=== PATIENT | male | born 1960 | race African-American/Black ===

== ENCOUNTER 2017-09-28 09:39 | Inpatient (IN) | payer OTHER ==
[2017-09-28 10:48] LABS: #Monocytes 2.1 thou/uL (0.11-0.59); #Neutrophils 14.1 thou/uL (1.40-6.50); %Basophils 0.1 % (0.0-1.0); %Eosinophils 0.1 % (0.0-10.0); %Lymphocytes 5.7 % (21.0-51.0); %Monocytes 12.1 % (0.0-10.0); Hemoglobin 10.3 g/dL (14.0-18.0); Mean Corpuscular HGB CONC 32.5 g/dL (32.0-36.0); Mean Corpuscular Volume 98.6 fl (80.0-94.0); Mean Platelet Volume 7.8 fL (7.4-10.4); Platelet Count 196 thou/uL (130-400); RBC Distribution Width 16.1 % (11.5-14.5); Red Blood Cell (RBC) Count 3.21 mill/uL (4.70-6.10); White Blood Cell (WBC) Count 17.3 thou/uL (4.8-10.8)
[2017-09-28 10:58] LABS: ALT (SGPT) 38 U/L (8-55); AST (SGOT) 58 U/L (5-34); Albumin 3.7 g/dL (3.5-5.0); Alkaline Phosphatase 67 U/L (40-150); Anion Gap 13 mmol/L (10-20); BUN (Urea Nitrogen) 19 mg/dL (8.4-25.7); Bilirubin, Total 0.6 mg/dL (0.2-1.2); Calc. Creatinine Clearance 0 mL/min (70-130); Calcium 9.2 mg/dL (7.8-10.44); Carbon Dioxide 31 mmol/L (22-29); Chloride 89 mmol/L (98-107); Estimated GFR-MDRD Greater than 90; Globulin 3.1 g/dL (2.4-3.5); Glucose 135 mg/dL (70-105); Potassium 3.3 mmol/L (3.5-5.1); Protein, Total 6.8 g/dL (6.0-8.3); Sodium 130 mmol/L (136-145)
--- NOTE | 2017-09-28 11:02 | RAD ---
RIGHT ELBOW 4 VIEWS: Date: 09/28/17 HISTORY: Right elbow pain. FINDINGS: Radiocapitellar alignment is maintained. Mild osteophytosis. No acute fracture, dislocation, or fluid distention of the joint capsule. Prominent soft tissue swelling overlies the posterior aspect of the proximal ulna. No soft tissue gas or radiopaque foreign bodies. IMPRESSION: Soft tissue swelling without other complication evident. POS: [facility]
[2017-09-28] MEDS ORDERED: Vancomycin HCl 750 MG in Sodium Chloride 0.9% 250 ML 250 ML IVPB SCH (11:15)
[2017-09-28] MEDS ORDERED: Piperacillin/Tazobactam 4.5 GM in Sodium Chloride 0.9% 100 ML IVPB SCH (11:15)
[2017-09-28] MEDS ORDERED: Clindamycin/D5W 900 mg/50 ml Premix Bag ONE (11:17)
--- NOTE | 2017-09-28 12:10 | RAD ---
RIGHT FOREARM 2 VIEWS: Date: 09/28/17 HISTORY: Right arm pain and infection. FINDINGS: No acute fracture, dislocation, or aggressive osseous erosions. There is prominent soft tissue swelling over the posterior aspect of the forearm. No soft tissue gas or radiopaque foreign bodies are apparent. IMPRESSION: Prominent posterior soft tissue swelling. POS: [facility]
[2017-09-28] MEDS ORDERED: Ondansetron HCl/PF 4 MG/2 ML Vial IVP PRN ×2 (15:18)
[2017-09-28] MEDS ORDERED: traMADol HCl 50 MG TAB PO PRN (15:18)
[2017-09-28] MEDS ORDERED: Bisacodyl 5 MG TAB PO PRN ×2 (15:18)
[2017-09-28] MEDS ORDERED: Mag-Al 1200 mg/1200 mg/30 ML UDCUP PO PRN (15:18)
[2017-09-28] MEDS ORDERED: Benzonatate 100 MG CAP PO PRN (15:18)
[2017-09-28] MEDS ORDERED: hydrALAZINE 20 MG/ML VIAL SLOW IVP PRN (15:18)
[2017-09-28] MEDS ORDERED: Senokot 8.6 MG TAB PO PRN ×2 (15:18)
[2017-09-28] MEDS ORDERED: Nitroglycerin 0.4 MG TAB (25 Tab Bottle) SL PRN (15:18)
[2017-09-28] MEDS ORDERED: Calcium Carbonate 500 MG ChewTAB PO PRN (15:18)
[2017-09-28] MEDS ORDERED: cloNIDine 0.1 MG TAB PO PRN (15:18)
[2017-09-28] MEDS ORDERED: Acetaminophen 325 MG TAB PO PRN (15:18)
[2017-09-28] MEDS ORDERED: Diabetic Tussin 200 MG/10 ML UDCUP PO PRN (15:18)
[2017-09-28 15:24] VITALS: BMI 15.0
[2017-09-28] MEDS ORDERED: Potassium Chloride 20 MEQ TAB PO SCH (15:30)
[2017-09-28] MEDS: Sodium Chloride 0.9% 1,000 ML IV SCH (15:49)
[2017-09-28] MEDS ORDERED: VANCOMYCIN IVPB PRN (15:50)
--- NOTE | 2017-09-28 16:36 | HP ---
DATE OF ADMISSION: 09/28/2017 PRIMARY CARE PHYSICIAN: Cielo Rojo M.D. CHIEF COMPLAINT: Right forearm redness, tenderness, swelling, and wound. HISTORY OF PRESENT ILLNESS: Mr. Arellano is a pleasant 57-year-old male with past medical history of end-stage COPD, currently on hospice as well as history of hypertension, bipolar illness, alcohol abu se, who presented to the emergency room with the above-mentioned complaints. History is mainly obtai carson by the patient himself and case has been discussed with the admitting ER physician, Dr. Garcia. El ectronical medical records have been reviewed in detail. According to Mr. Arellano he is homebound and lives in his apartment under the care of hospice people. About 1 week ago, he noticed that there is an open wound on his forearm on the right side near the elbow on the dorsal surface. He thinks that he might have been bitten by either a spider or some oth er bug. He also reports taking a hot bath in his tub every morning, but reports that he extensively cleans it with disinfectant and puts chlorine in his water. He noticed that his arm has steadily bee n getting worse. He does not feel much pain, but it got worse up to the point where he had worsening of the wound with discharge of pus. He noticed that the arm has been getting swollen up with worsen ing redness as well. He contacted his primary care physician and was prescribed Keflex without any benefit. His hospice c are nurse sent him to the ER today. In the emergency room, he was hemodynamically stable except for the heart rate slightly high at 107. He was found to have extensive erythema, swelling, and tenderness with soft tissue wound on the righ t forearm on the dorsal surface with blistering. He underwent x-ray of the elbow as well as forearm. Both of these were negative for any osseous deformity. Soft tissue swelling was evident on both th e x-rays. He did not have any evidence to suggest compartment syndrome. He was given clindamycin, Z osyn, and vancomycin and is now being admitted for right forearm infection. He denies any fever, chills, nausea, vomiting, abdominal pain. He denies any shortness of breath or chest pain. Denies any dysuria. Denies any malaise, but the reports poor appetite. PAST MEDICAL HISTORY: 1. End-stage chronic obstructive pulmonary disease under care of [facility]. 2. History of tobacco abuse. He quit smoking 2 years ago. 3. History of alcohol abuse. He has not drunk in the last 1 week. 4. History of hypertension. 5. Anxiety and depression. 6. Bipolar disorder. PAST SURGICAL HISTORY: No surgeries done to this patient, reviewed with him. PSYCHIATRIC HISTORY: Anxiety and bipolar depression illness. SOCIAL HISTORY: Former tobacco abuser; quit 2 years ago. Currently, drinks about 2 beers every day. He has been abstinent for the last week. He is currently living at his own apartment and has [facility] taking care of his end-stage COPD. ALLERGIES: No known medication allergies. FAMILY HISTORY: No significant family history of any coronary artery disease, stroke, or cancer. CURRENT MEDICATIONS: Not sure what medications he takes on a regular basis. These will further need to be confirmed. According to the ER, he takes Symbicort as needed, prednisone daily, and Norvasc. REVIEW OF SYSTEMS: The following complete review of systems was negative, unless otherwise mentioned in the HPI or below: Constitutional: Weight loss or gain, ability to conduct usual activities. Sk in: Rash, itching. Eyes: Double vision, pain. ENT/Mouth: Nose bleeding, neck stiffness, pain, te nderness. Cardiovascular: Palpitations, dyspnea on exertion, orthopnea. Respiratory: Shortness of breath, wheezing, cough, hemoptysis, fever, or night sweats. Gastrointestinal: Poor appetite, abdo vanita pain, heartburn, nausea, vomiting, constipation, or diarrhea. Genitourinary: Urgency, frequen cy, dysuria, nocturia. Musculoskeletal: Pain, swelling. Neurologic/Psychiatric: Anxiety, depressi on. Allergy/Immunologic: Skin rash, bleeding tendency. A 12-point review of systems was done and i s negative except for those mentioned in the history and physical. LABORATORY EXAMINATION: CBC shows WBCs at 17.3 with 82% neutrophils, hemoglobin 10.3, platelet count of 196. Serum chemistry shows sodium of 130, potassium 3.3, chloride 89, bicarbonate 31, blood suga r 136. Lactic acid normal at 1.6. X-ray of the forearm and elbow was reviewed by myself and shows s oft tissue swelling without any significant fluid collection. No soft tissue gas or foreign bodies w ere apparent for the radiologist. PHYSICAL EXAMINATION: MOST RECENT VITAL SIGNS: Temperature 97.6, pulse of 87, respirations 16, saturating 97% on 2 liters nasal cannula, blood pressure 145/82. GENERAL: No acute distress, awake, alert, oriented x3. HEENT EXAMINATION: Mucous membrane is moist and pink. No oropharyngeal exudate or erythema. Head i s normocephalic, atraumatic. Pupils equal, reactive to light and accommodation. Extraocular movemen t intact. NECK: Supple without any lymphadenopathy, JVD, or bruit. CHEST: Clear to auscultation without any wheezing, rales, or rhonchi. Rate and rhythm is regular wi thout any murmur, rubs, or gallops. ABDOMEN: Soft, nontender, nondistended with positive bowel sounds. EXTREMITIES: Evaluation show right forearm erythema, swelling, and edema that is pitting, extending from his wrist upwards just above his right elbow. It is extending mainly from dorsum. He has 2 spo ts of blistering, 1 in the lower forearm and 1 in the upper forearm near the right elbow. The bliste ring near the right elbow has some fluctuance to it. It seems like he does have a fluid collection j ust beneath the skin surface. There is pitting edema, but he is not very tender on examination. War mth is noticed. He has good radial pulses felt in the right arm and is able to use all of his finger s without any difficulty. LOWER EXTREMITY EXAMINATION: Unremarkable. NEUROLOGICAL EXAMINATION: Nonfocal. SKIN: Except for the right upper extremity, it is warm and dry, and normal in color without any rash . PSYCHIATRIC: Normal affect. IMPRESSION AND PLAN: 1. Right upper extremity infection and cellulitis. At this time, we will start him on IV antibiotic s and IV fluids. Blood cultures have been obtained and we will follow the results. I feel that the patient may need I and D, and for this reason, we will consult General Surgery and also consult Wound Care while he is here. He will be monitored clinically for any worsening or any signs and symptoms of compartment syndrome. 2. Sepsis secondary to #1, as evident by the source of infection and leukocytosis with left shift. Continue IV antibiotic as well as IV fluids. He is currently hemodynamically stable. 3. End-stage chronic obstructive pulmonary disease. He will resume hospice services once he is disc harged from the hospital. Continue supplemental oxygen and DuoNeb will be ordered as needed basis. 4. Hypertension. Restart home medications once confirmed. P.r.n. medications have been ordered for him. 5. Bipolar illness. The patient seems euthymic at this time. Continue to monitor. 6. Hypokalemia. We will replace and recheck. 7. Hyponatremia that is chronic for the patient. We will continue to monitor. This is longstanding due to his history of alcohol abuse. 8. History of alcohol abuse. The patient is counseled once again. 9. Deep venous thrombosis and gastrointestinal prophylaxis. 10. Code status: FULL CODE. Discussed with the patient. 11. Add p.r.n. medication orders. DISPOSITION: Mr. Arellano is currently being admitted to the hospital for right upper extremity wound and cellulitis. Estimated length of stay is at least 2-3 midnight. Further management will depend upon his clinical course.
[2017-09-28] MEDS: Piperacillin/Tazobactam 3.375 GM in Sodium Chloride 0.9% 100 ML IVPB SCH ×2 (17:09→23:55)
[2017-09-28] MEDS ORDERED: Vancomycin HCl 1 GM in Premix Bag 1 BAG IVPB SCH (21:00)
[2017-09-29] MEDS: Piperacillin/Tazobactam 3.375 GM in Sodium Chloride 0.9% 100 ML IVPB SCH ×3 (05:11→18:40)
[2017-09-29] MEDS: Sodium Chloride 0.9% 1,000 ML IV SCH ×3 (05:11→21:02)
[2017-09-29 06:20] LABS: Anion Gap 11 mmol/L (10-20); BUN (Urea Nitrogen) 15 mg/dL (8.4-25.7); Calc. Creatinine Clearance 75 mL/min (70-130); Calcium 8.4 mg/dL (7.8-10.44); Carbon Dioxide 27 mmol/L (22-29); Chloride 97 mmol/L (98-107); Estimated GFR-MDRD Greater than 90; Glucose 130 mg/dL (70-105); Potassium 3.8 mmol/L (3.5-5.1); Sodium 131 mmol/L (136-145)
[2017-09-29 06:28] LABS: Hemoglobin 9.5 g/dL (14.0-18.0); Mean Corpuscular HGB CONC 32.1 g/dL (32.0-36.0); Mean Corpuscular Hemoglobin 31.9 pg (27.0-31.0); Mean Corpuscular Volume 99.4 fl (80.0-94.0); Mean Platelet Volume 8.4 fL (7.4-10.4); Platelet Count 199 thou/uL (130-400); RBC Distribution Width 16.4 % (11.5-14.5); Red Blood Cell (RBC) Count 2.97 mill/uL (4.70-6.10); White Blood Cell (WBC) Count 15.6 thou/uL (4.8-10.8)
[2017-09-29 06:29] LABS: Band 9 % (5-11); Lymphocytes 4 % (21-51); MDiff Complete? YES; Monocytes 12 % (0-10); Neutrophil 75 % (42-75); PLT Morphology Comment Appears Adequate
[2017-09-29] MEDS ORDERED: Non-Formulary Item 1 EACH (Budesonide-Formoterol [Symbicort 160-4.5] 2 PUFF) INH PRN (09:01)
[2017-09-29] MEDS ORDERED: PROVENTIL INHALER 6.7 G (200 INHALATIONS) INH PRN (09:01)
[2017-09-29] MEDS ORDERED: Mometasone/Formoterol 120 PUFF INHALER INH PRN (09:08)
[2017-09-29] MEDS ORDERED: Lisinopril 10 MG TAB PO SCH (09:15)
[2017-09-29] MEDS ORDERED: Ivabradine 5 MG TAB PO SCH (09:15)
[2017-09-29] MEDS ORDERED: Torsemide 20 MG TAB PO SCH (09:15)
[2017-09-29] MEDS: HYDROcodone/Acetaminophen 10/325 mg Tablet PO PRN ×2 (09:48→20:58)
[2017-09-29] MEDS: Enoxaparin Sodium 40 MG/0.4 ML SYRINGE SC SCH (09:50)
--- NOTE | 2017-09-29 11:35 | HP ---
HISTORY OF PRESENT ILLNESS: Mr. Gallito Arellano is a 57-year-old black male patient admitted by Miladis butler for a severe infection in his right forearm. I doubt was ordered this morning and a surgica l consult was made. His nurse, Lizette Batista try to keep the patient from eating, but the patient insi sted on eating. He ate breakfast at 8:00. The patient has a severe infection in his right forearm a nd that is an emergency. We will declare this as an emergency to do it, despite his food consumption as the infection appears severe and is likely to be progressive. ALLERGIES: None. TOBACCO: None. ALCOHOL: Rarely. MEDICATIONS: At home, DuoNeb, Torsemide 20 mg a day, Symbicort 2 puffs p.r.n., Xanax 0.5 mg b.i.d. p .r.n., [place] 10/325 p.r.n., lisinopril 10 b.i.d., Corlanor 5 mg b.i.d., prednisone 20 mg a day. PAST SURGICAL HISTORY: None. PAST MEDICAL HISTORY: History of alcohol abuse, alcohol cessation in the last week, tobacco abuse ce ssation two years ago, COPD, [facility], hypertension, depression, bipolar disorder. PHYSICAL EXAMINATION: GENERAL: 5 foot 11, 107 pounds, 15 BMI. VITAL SIGNS: Temperature 98.2, 120/79. HEENT: Unremarkable. LUNGS: Clear to auscultation, no wheezing. CARDIAC: Regular rate and rhythm. ABDOMEN: Soft, nontender, flat, nondistended, no masses. EXTREMITIES: Unremarkable except for right upper extremity where he has severe swelling, ecchymosis proximal volar lateral forearm with blistering of the skin. ASSESSMENT: Severe infection, right arm. PLAN: 1. Incision and drainage today as an emergency. Risk of infection, bleeding, reoperation explained. He consents. 2. End-stage chronic obstructive pulmonary disease on hospice care.
[2017-09-29] MEDS ORDERED: PROPOFOL 200 MG/20 ML VIAL ONE (12:26)
[2017-09-29] MEDS: Vancomycin HCl 1 GM in Premix Bag 1 BAG IVPB SCH (12:57)
--- NOTE | 2017-09-29 13:59 | PDOC.PN ---
- Subjective Encounter Start Date: 09/29/17 Encounter Start Time: 13:57 Subjective: feels Ok.denies any r arm pain.no fever/chills/vomiting -: labs reviewed - Objective MAR Reviewed: Yes Vital Signs & Weight: Vital Signs (12 hours) Temp Pulse Resp BP BP Pulse Ox 09/29/17 11:37 97.8 F 97 16 123/76 99 09/29/17 09:48 120/79 09/29/17 08:00 98.2 F 97 20 09/29/17 07:19 98.2 F 97 20 120/79 99 09/29/17 03:58 97.9 F 96 18 147/83 H 96 Weight Admit Weight 107 lb 8 oz Weight 107 lb 8 oz I&O: 09/28/17 09/29/17 09/30/17 06:59 06:59 06:59 Intake Total 2528 240 Output Total 800 Balance 1728 240 Result Diagrams: 09/29/17 04:54 09/29/17 04:54 Additional Labs: Microbiology 09/28/17 10:35 Venous blood - Right Arm Blood Culture - Preliminary Specimen has been received and culture in progress. No Growth to date. 09/28/17 10:28 Venous blood - Left Arm Blood Culture - Preliminary Specimen has been received and culture in progress. No Growth to date. Phys Exam - Physical Examination Constitutional: NAD HEENT: PERRLA, moist MMs, sclera anicteric, oral pharynx no lesions Neck: no nodes, no JVD, supple, full ROM Respiratory: no wheezing, no rales, no rhonchi, clear to auscultation bilateral Cardiovascular: RRR, no significant murmur, no rub Gastrointestinal: soft, non-tender, no distention, positive bowel sounds Musculoskeletal: pulses present R arm erythema and swelling worse today w oozing from blisters of Pus no evidence of compartment syndrome.radial pulse felt easily,moves fingers/ Neurological: non-focal, normal sensation, moves all 4 limbs Psychiatric: normal affect, A&O x 3 Skin: no rash Dx/Plan (1) Blister of right upper arm with infection Code(s): S40.821A - BLISTER (NONTHERMAL) OF RIGHT UPPER ARM, INITIAL ENCOUNTER; L08.9 - LOCAL INFECTION OF THE SKIN AND SUBCUTANEOUS TISSUE, UNSP Status: Acute Qualifiers: Encounter type: initial encounter Qualified Code(s): S40.821A - Blister ( nonthermal) of right upper arm, initial encounter; L08.9 - Local infection of the skin and subcutaneous tissue, unspecified; L08.9 - Local infection of the skin and subcutaneous tissue, unspecified Comment: I&D today.on IV Abx.following Cx (2) Right arm cellulitis Code(s): L03.113 - CELLULITIS OF RIGHT UPPER LIMB Status: Acute (3) Sepsis Code(s): A41.9 - SEPSIS, UNSPECIFIED ORGANISM Status: Acute (4) Anxiety and depression Code(s): F41.9 - ANXIETY DISORDER, UNSPECIFIED; F32.9 - MAJOR DEPRESSIVE DISORDER, SINGLE EPISODE, UNSPECIFIED Status: Chronic (5) Bipolar 1 disorder Code(s): F31.9 - BIPOLAR DISORDER, UNSPECIFIED Status: Chronic (6) COPD (chronic obstructive pulmonary disease) Status: Chronic Comment: on hospice (7) Chronic respiratory failure with hypoxia Code(s): J96.11 - CHRONIC RESPIRATORY FAILURE WITH HYPOXIA Status: Chronic (8) Chronic systolic (congestive) heart failure Code(s): I50.22 - CHRONIC SYSTOLIC (CONGESTIVE) HEART FAILURE Status: Chronic (9) Hypertension Code(s): I10 - ESSENTIAL (PRIMARY) HYPERTENSION Status: Chronic (10) Protein-calorie malnutrition, moderate Code(s): E44.0 - MODERATE PROTEIN-CALORIE MALNUTRITION Status: Chronic - Plan continue antibiotics, PT/OT, respiratory therapy, incentive spirometry, out of bed/ambulate, DVT proph w/SCDs cont IV Abx,follow Cx. IVf.NPO for Sx. -: appreciate GS input. -: HD stable.restar home meds as confirmed today -: am labs. -: o2 ,nebs etc w supportive care.no resp compromise * . Review of Systems - Review of Systems Constitutional: weakness. negative: fever, chills, sweats, malaise, other ENT: negative: Ear Pain, Ear Discharge, Nose Pain, Nose Discharge, Nose Congestion, Mouth Pain, Mouth Swelling, Throat Pain, Throat Swelling, Other Respiratory: negative: Cough, Dry, Shortness of Breath, Hemoptysis, SOB with Excertion, Pleuritic Pain, Sputum, Wheezing Cardiovascular: negative: chest pain, palpitations, orthopnea, paroxysmal nocturnal dyspnea, edema, light headedness, other Gastrointestinal: negative: Nausea, Vomiting, Abdominal Pain, Diarrhea, Constipation, Melena, Hematochezia, Other Genitourinary: negative: Dysuria, Frequency, Incontinence, Hematuria, Retention , Other Musculoskeletal: negative: Neck Pain, Shoulder Pain, Arm Pain, Back Pain, Hand Pain, Leg Pain, Foot Pain, Other Neurological: negative: Weakness, Numbness, Incoordination, Change in Speech, Confusion, Seizures, Other - Medications/Allergies Allergies/Adverse Reactions: Allergies Allergy/AdvReac Type Severity Reaction Status Date / Time No Known Drug Allergies Allergy Verified 10/11/16 06:42 Medications: Current Medications Acetaminophen (Tylenol) 650 mg PO Q4H PRN PRN Reason: Headache/Fever or Pain Hydrocodone Bitart/Acetaminophen ([place] 10/325) 1 tab PO TID PRN PRN Reason: Pain Last Admin: 09/29/17 09:48 Dose: 1 tab Al Hydroxide/Mg Hydroxide (Maalox) 30 ml PO Q6H PRN PRN Reason: Heartburn or Indigestion Albuterol Sulfate (Proventil Hfa) 2 puff INH Q4H PRN PRN Reason: SOB &/or Wheezing Albuterol/Ipratropium (Duoneb) 3 ml NEB [id number] PRN PRN Reason: SOB &/or Wheezing Alprazolam (Xanax) 0.5 mg PO BID PRN PRN Reason: Anxiety Benzonatate (Tessalon) 100 mg PO Q4H PRN PRN Reason: Cough Bisacodyl (Dulcolax) 10 mg PO DAILYPRN PRN PRN Reason: Constipation Calcium Carbonate (Tums) 1,000 mg PO Q4H PRN PRN Reason: Heartburn or Indigestion Clonidine (Catapres) 0.1 mg PO Q4H PRN PRN Reason: Systolic BP > 160 Enoxaparin Sodium (Lovenox) 40 mg SC 0900 DONNA Last Admin: 09/29/17 09:50 Dose: Not Given Guaifenesin (Robitussin Sf) 200 mg PO Q4H PRN PRN Reason: Cough Hydralazine HCl (Apresoline) 10 mg SLOW IVP Q4H PRN PRN Reason: Systolic BP > 170 Sodium Chloride (Normal Saline 0.9%) 1,000 mls @ 100 mls/hr IV .Q10H [facility] Last Admin: 09/29/17 11:50 Dose: Not Given Piperacillin Sod/Tazobactam (Sod 3.375 gm/ Sodium Chloride) 100 mls @ 200 mls/ hr IVPB Q6HR [facility] Last Admin: 09/29/17 11:47 Dose: 100 mls Vancomycin HCl 1 gm/ Device 200 mls @ 200 mls/hr IVPB 1300 [facility] Last Admin: 09/29/17 12:57 Dose: 200 mls Ivabradine (Corlanor) 5 mg PO BID DONNA Lisinopril (Zestril) 10 mg PO BID [facility] Miscellaneous Medication (Pharmacy To Dose) 1 each IVPB PRN PRN PRN Reason: Pharmacy to dose Mometasone Furoate/Formoterol Fumar (Dulera 200 Mcg/5 Mcg Inhaler) 2 puff INH Q4H PRN PRN Reason: SOB Nitroglycerin (Nitrostat) 0.4 mg SL Q5MIN PRN PRN Reason: Chest Pain Ondansetron HCl (Zofran) 4 mg IVP Q6H PRN PRN Reason: Nausea/Vomiting Prednisone (Prednisone) 20 mg PO DAILY [facility] Senna (Senokot) 2 tab PO HSPRN PRN PRN Reason: Constipation Sodium Chloride (Flush - Normal Saline) 10 ml IVF Q12HR DONNA Sodium Chloride (Flush - Normal Saline) 10 ml IVF PRN PRN PRN Reason: Saline Flush Torsemide (Demadex) 20 mg PO DAILY [facility] Tramadol HCl (Ultram) 50 mg PO Q4H PRN PRN Reason: Moderate Pain (4-6) Last Admin: 09/29/17 01:00 Dose: 50 mg
[2017-09-29] MEDS ORDERED: traMADol HCl 50 MG TAB PO PRN (18:04)
[2017-09-29] MEDS ORDERED: Ibuprofen 600 MG TAB PO PRN (18:04)
[2017-09-29] MEDS ORDERED: Acetaminophen 500 MG TAB PO PRN (18:04)
[2017-09-29] MEDS: Lisinopril 10 MG TAB PO SCH (20:07)
[2017-09-29] MEDS: Ivabradine 5 MG TAB PO SCH (20:08)
[2017-09-30] MEDS: Piperacillin/Tazobactam 3.375 GM in Sodium Chloride 0.9% 100 ML IVPB SCH ×5 (00:29→23:40)
--- NOTE | 2017-09-30 00:32 | OP ---
DATE OF PROCEDURE: 09/29/2017 PREOPERATIVE DIAGNOSIS: Right forearm abscess. POSTOPERATIVE DIAGNOSIS: Right forearm abscess. PROCEDURE: Incision and drainage of large right forearm abscess 15 cm incision with undermining one- half of the circumference of the forearm, culture and sensitivity to microbiology. SURGEON: Harris Mike M.D. ANESTHESIA: General. Local, none. Pulse bunghole borer used. DESCRIPTION OF PROCEDURE: The patient was taken to the operating room under general anesthesia LMA, right upper extremity was prepared with ChloraPrep, draped in routine fashion. Incision longitudinal ly made in the volar lateral forearm. Skin and subcutaneous tissue from the elbow to distal forearm 15 cm incision evacuated and copious amount of purulent material sent for culture and sensitivity. W ound was pulsed irrigated. Saline wet to dry dressing applied. Patient tolerated the procedure well . Wound VAC to be applied tomorrow. Follow up in my office in 3-4 weeks. Home with oral antibiotic s once wound VAC is arranged.
[2017-09-30 05:51] LABS: #Eosinphils 0.1 thou/uL (0.0-0.7); #Monocytes 1.7 thou/uL (0.11-0.59); #Neutrophils 8.8 thou/uL (1.40-6.50); %Basophils 0.1 % (0.0-1.0); %Eosinophils 0.7 % (0.0-10.0); %Monocytes 14.3 % (0.0-10.0); %Neutrophils 75.9 % (42.0-75.0); Hemoglobin 9.1 g/dL (14.0-18.0); Mean Corpuscular HGB CONC 31.7 g/dL (32.0-36.0); Mean Corpuscular Hemoglobin 32.1 pg (27.0-31.0); Mean Platelet Volume 7.6 fL (7.4-10.4); Platelet Count 248 thou/uL (130-400); RBC Distribution Width 16.3 % (11.5-14.5); Red Blood Cell (RBC) Count 2.85 mill/uL (4.70-6.10); White Blood Cell (WBC) Count 11.6 thou/uL (4.8-10.8)
[2017-09-30 05:59] LABS: Anion Gap 9 mmol/L (10-20); BUN (Urea Nitrogen) 11 mg/dL (8.4-25.7); Calc. Creatinine Clearance 80 mL/min (70-130); Calcium 8.2 mg/dL (7.8-10.44); Carbon Dioxide 33 mmol/L (22-29); Chloride 94 mmol/L (98-107); Estimated GFR-MDRD Greater than 90; Glucose 93 mg/dL (70-105); Potassium 3.7 mmol/L (3.5-5.1); Sodium 132 mmol/L (136-145)
[2017-09-30] MEDS: Sodium Chloride 0.9% 1,000 ML IV SCH (06:41)
--- NOTE | 2017-09-30 08:58 | PRG ---
DATE OF SERVICE: 09/30/2017 Mr. Arellano is doing well today. His dressings are intact. Wound care is to see him today to start dressing care. ' PHYSICAL EXAMINATION: VITAL SIGNS: Temperature 98 degrees, 67, 116/66. LABORATORY: White count 11, hemoglobin 9.1, sodium 132, potassium 3.7, BUN 11, creatinine 0.69. Kristian robiology cultures, growth pending. Many gram positive cocci noted on Gram stain. ASSESSMENT AND PLAN: Right forearm abscess, although large, this was not a necrotizing process. The patient has ordered wound VAC application, but actually he could have normal saline wet to dry dress ings if wound VAC is a problem at home. He can be discharged home in my opinion any time with oral antibiotics and either a wound VAC to change 2-3 times a week or normal saline wet to dry dressings a pplied after washing the wound every one or two days with soap and water in the bath or shower. He s hould follow up in my office in 2-3 weeks. At this point, I will see him as needed and follow him in the office in 2-3 weeks.
[2017-09-30] MEDS: Polyethylene Glycol 3350 17 GM Packet PO SCH (09:05)
[2017-09-30] MEDS: Lisinopril 10 MG TAB PO SCH ×2 (09:06→20:17)
[2017-09-30] MEDS: Enoxaparin Sodium 40 MG/0.4 ML SYRINGE SC SCH (09:06)
[2017-09-30] MEDS: predniSONE 20 MG TAB PO SCH (09:06)
[2017-09-30] MEDS: Ivabradine 5 MG TAB PO SCH ×2 (09:07→20:16)
[2017-09-30] MEDS: Torsemide 20 MG TAB PO SCH (09:08)
[2017-09-30] MEDS: ALPRAZolam 0.5 MG TAB PO PRN ×2 (12:13→20:26)
[2017-09-30] MEDS: HYDROcodone/Acetaminophen 10/325 mg Tablet PO PRN ×2 (12:13→23:44)
[2017-09-30 12:46] LABS: Vancomycin, Trough 4.5 ug/mL
[2017-09-30] MEDS: Vancomycin HCl 1 GM in Premix Bag 1 BAG IVPB SCH ×2 (14:08→15:10)
--- NOTE | 2017-09-30 14:35 | PDOC.PN ---
- Subjective Encounter Start Date: 09/30/17 Encounter Start Time: 14:34 Subjective: feels very well,no pain in post -op arm -: no fever/chills - Objective MAR Reviewed: Yes Vital Signs & Weight: Vital Signs (12 hours) Temp Pulse Resp BP BP Pulse Ox 09/30/17 09:16 75 20 99 09/30/17 09:06 116/66 09/30/17 08:00 98.0 F 67 22 H 97 09/30/17 07:12 98.0 F 67 22 H 116/66 97 09/30/17 03:59 96 09/30/17 03:51 98 F 68 18 101/71 96 Weight Admit Weight 107 lb 8 oz Weight 107 lb 8 oz I&O: 09/29/17 09/30/17 10/01/17 06:59 06:59 06:59 Intake Total 2528 1140 Output Total 800 900 Balance 1728 240 Result Diagrams: 09/30/17 05:20 09/30/17 05:20 Additional Labs: Microbiology 09/29/17 17:50 Arm - Abscess Bacterial Culture - Preliminary 09/28/17 10:35 Venous blood - Right Arm Blood Culture - Preliminary NO GROWTH AT 48 HOURS 09/28/17 10:28 Venous blood - Left Arm Blood Culture - Preliminary NO GROWTH AT 48 HOURS LABS REVIEWED Phys Exam - Physical Examination Constitutional: NAD HEENT: PERRLA, moist MMs, sclera anicteric, oral pharynx no lesions Neck: no nodes, no JVD, supple, full ROM Respiratory: no wheezing, no rales, no rhonchi, clear to auscultation bilateral Cardiovascular: RRR, no significant murmur, no rub Gastrointestinal: soft, non-tender, no distention, positive bowel sounds Musculoskeletal: no edema, pulses present R arm in dressing w/o oozing.able to move the hand easily Neurological: non-focal, normal sensation, moves all 4 limbs Psychiatric: normal affect, A&O x 3 Skin: no rash Dx/Plan (1) Sepsis Code(s): A41.9 - SEPSIS, UNSPECIFIED ORGANISM Status: Acute (2) Blister of right upper arm with infection Code(s): S40.821A - BLISTER (NONTHERMAL) OF RIGHT UPPER ARM, INITIAL ENCOUNTER; L08.9 - LOCAL INFECTION OF THE SKIN AND SUBCUTANEOUS TISSUE, UNSP Status: Acute Qualifiers: Encounter type: initial encounter Qualified Code(s): S40.821A - Blister ( nonthermal) of right upper arm, initial encounter; L08.9 - Local infection of the skin and subcutaneous tissue, unspecified; L08.9 - Local infection of the skin and subcutaneous tissue, unspecified Comment: I&D 09/29/17.on IV Abx.following Cx (3) Right arm cellulitis Code(s): L03.113 - CELLULITIS OF RIGHT UPPER LIMB Status: Acute (4) Anxiety and depression Code(s): F41.9 - ANXIETY DISORDER, UNSPECIFIED; F32.9 - MAJOR DEPRESSIVE DISORDER, SINGLE EPISODE, UNSPECIFIED Status: Chronic (5) Bipolar 1 disorder Code(s): F31.9 - BIPOLAR DISORDER, UNSPECIFIED Status: Chronic (6) COPD (chronic obstructive pulmonary disease) Status: Chronic Comment: on hospice (7) Chronic respiratory failure with hypoxia Code(s): J96.11 - CHRONIC RESPIRATORY FAILURE WITH HYPOXIA Status: Chronic Comment: on Home O2 (8) Chronic systolic (congestive) heart failure Code(s): I50.22 - CHRONIC SYSTOLIC (CONGESTIVE) HEART FAILURE Status: Chronic (9) Hypertension Code(s): I10 - ESSENTIAL (PRIMARY) HYPERTENSION Status: Chronic (10) Protein-calorie malnutrition, moderate Code(s): E44.0 - MODERATE PROTEIN-CALORIE MALNUTRITION Status: Chronic (11) Hyponatremia Code(s): E87.1 - HYPO-OSMOLALITY AND HYPONATREMIA Status: Chronic Comment: due to chronic Beer intake - Plan continue antibiotics, out of bed/ambulate, DVT proph w/SCDs will try to arrange wound care for home.pt on hospice,discused w CM -: cont empiric ABx for now. final Cx pending -: HD stable.arthur DARNELL in 24-48 hours if wound care established -: Home meds as below. continous resp support for End stage COPD -: am labs * . Review of Systems - Review of Systems Constitutional: negative: fever, chills, sweats, weakness, malaise, other Respiratory: negative: Cough, Dry, Shortness of Breath, Hemoptysis, SOB with Excertion, Pleuritic Pain, Sputum, Wheezing Cardiovascular: negative: chest pain, palpitations, orthopnea, paroxysmal nocturnal dyspnea, edema, light headedness, other Gastrointestinal: negative: Nausea, Vomiting, Abdominal Pain, Diarrhea, Constipation, Melena, Hematochezia, Other Genitourinary: negative: Dysuria, Frequency, Incontinence, Hematuria, Retention , Other Musculoskeletal: negative: Neck Pain, Shoulder Pain, Arm Pain, Back Pain, Hand Pain, Leg Pain, Foot Pain, Other Skin: negative: Rash, Lesions, Rogers, Bruising, Other Neurological: negative: Weakness, Numbness, Incoordination, Change in Speech, Confusion, Seizures, Other - Medications/Allergies Allergies/Adverse Reactions: Allergies Allergy/AdvReac Type Severity Reaction Status Date / Time No Known Drug Allergies Allergy Verified 10/11/16 06:42 Medications: Current Medications Acetaminophen (Tylenol) 650 mg PO Q4H PRN PRN Reason: Headache/Fever or Pain Acetaminophen (Tylenol) 1,000 mg PO Q6H PRN PRN Reason: Moderate to Severe Pain (6-10) Last Admin: 09/30/17 00:33 Dose: 1,000 mg Hydrocodone Bitart/Acetaminophen ([place] 10/325) 1 tab PO TID PRN PRN Reason: Pain Last Admin: 09/30/17 12:13 Dose: 1 tab Al Hydroxide/Mg Hydroxide (Maalox) 30 ml PO Q6H PRN PRN Reason: Heartburn or Indigestion Albuterol Sulfate (Proventil Hfa) 2 puff INH Q4H PRN PRN Reason: SOB &/or Wheezing Albuterol/Ipratropium (Duoneb) 3 ml NEB [id number] PRN PRN Reason: SOB &/or Wheezing Last Admin: 09/30/17 09:16 Dose: 3 ml Alprazolam (Xanax) 0.5 mg PO BID PRN PRN Reason: Anxiety Last Admin: 09/30/17 12:13 Dose: 0.5 mg Benzonatate (Tessalon) 100 mg PO Q4H PRN PRN Reason: Cough Bisacodyl (Dulcolax) 10 mg PO DAILYPRN PRN PRN Reason: Constipation Calcium Carbonate (Tums) 1,000 mg PO Q4H PRN PRN Reason: Heartburn or Indigestion Clonidine (Catapres) 0.1 mg PO Q4H PRN PRN Reason: Systolic BP > 160 Enoxaparin Sodium (Lovenox) 40 mg SC 0900 [facility] Last Admin: 09/30/17 09:06 Dose: 40 mg Guaifenesin (Robitussin Sf) 200 mg PO Q4H PRN PRN Reason: Cough Hydralazine HCl (Apresoline) 10 mg SLOW IVP Q4H PRN PRN Reason: Systolic BP > 170 Piperacillin Sod/Tazobactam (Sod 3.375 gm/ Sodium Chloride) 100 mls @ 200 mls/ hr IVPB Q6HR [facility] Last Admin: 09/30/17 13:01 Dose: 100 mls Vancomycin HCl 1 gm/ Device 200 mls @ 200 mls/hr IVPB 0200,1400 [facility] Ibuprofen (Motrin) 600 mg PO Q6H PRN PRN Reason: Pain Ivabradine (Corlanor) 5 mg PO BID [facility] Last Admin: 09/30/17 09:07 Dose: 5 mg Lisinopril (Zestril) 10 mg PO BID [facility] Last Admin: 09/30/17 09:06 Dose: 10 mg Miscellaneous Medication (Pharmacy To Dose) 1 each IVPB PRN PRN PRN Reason: Pharmacy to dose Mometasone Furoate/Formoterol Fumar (Dulera 200 Mcg/5 Mcg Inhaler) 2 puff INH Q4H PRN PRN Reason: SOB Nitroglycerin (Nitrostat) 0.4 mg SL Q5MIN PRN PRN Reason: Chest Pain Ondansetron HCl (Zofran) 4 mg IVP Q6H PRN PRN Reason: Nausea/Vomiting Polyethylene Glycol (Miralax) 17 gm PO DAILY [facility] Last Admin: 09/30/17 09:05 Dose: 17 gm Prednisone (Prednisone) 20 mg PO DAILY [facility] Last Admin: 09/30/17 09:06 Dose: 20 mg Senna (Senokot) 2 tab PO HSPRN PRN PRN Reason: Constipation Sodium Chloride (Flush - Normal Saline) 10 ml IVF Q12HR [facility] Last Admin: 09/30/17 09:08 Dose: 10 ml Sodium Chloride (Flush - Normal Saline) 10 ml IVF PRN PRN PRN Reason: Saline Flush Torsemide (Demadex) 20 mg PO DAILY [facility] Last Admin: 09/30/17 09:08 Dose: 20 mg Tramadol HCl (Ultram) 50 mg PO Q4H PRN PRN Reason: Moderate Pain (4-6) Last Admin: 09/29/17 01:00 Dose: 50 mg Tramadol HCl (Ultram) 50 mg PO Q6H PRN PRN Reason: Pain Tramadol HCl (Ultram) 100 mg PO Q6H PRN PRN Reason: Pain
[2017-09-30] MEDS: traMADol HCl 50 MG TAB PO PRN (20:22)
[2017-10-01] MEDS: Vancomycin HCl 1 GM in Premix Bag 1 BAG IVPB SCH ×2 (02:32→16:05)
[2017-10-01] MEDS: ALPRAZolam 0.5 MG TAB PO PRN ×2 (04:22→21:01)
[2017-10-01] MEDS: traMADol HCl 50 MG TAB PO PRN (04:55)
[2017-10-01] MEDS: Piperacillin/Tazobactam 3.375 GM in Sodium Chloride 0.9% 100 ML IVPB SCH ×3 (05:07→16:47)
[2017-10-01 05:44] LABS: Anion Gap 11 mmol/L (10-20); BUN (Urea Nitrogen) 10 mg/dL (8.4-25.7); Calc. Creatinine Clearance 81 mL/min (70-130); Calcium 8.5 mg/dL (7.8-10.44); Carbon Dioxide 32 mmol/L (22-29); Chloride 91 mmol/L (98-107); Estimated GFR-MDRD Greater than 90; Glucose 96 mg/dL (70-105); Potassium 3.7 mmol/L (3.5-5.1); Sodium 130 mmol/L (136-145)
[2017-10-01] MEDS: Ivabradine 5 MG TAB PO SCH ×2 (09:16→20:57)
[2017-10-01] MEDS: Enoxaparin Sodium 40 MG/0.4 ML SYRINGE SC SCH (09:16)
[2017-10-01] MEDS: Torsemide 20 MG TAB PO SCH (09:17)
[2017-10-01] MEDS: predniSONE 20 MG TAB PO SCH (09:17)
[2017-10-01] MEDS: Lisinopril 10 MG TAB PO SCH ×2 (09:18→21:04)
[2017-10-01] MEDS: Polyethylene Glycol 3350 17 GM Packet PO SCH (09:18)
[2017-10-01] MEDS: HYDROcodone/Acetaminophen 10/325 mg Tablet PO PRN ×2 (09:19→21:01)
--- NOTE | 2017-10-01 16:38 | DIS ---
DATE OF DISCHARGE: 09/28/2017 DATE OF DISCHARGE: 10/01/2017 CONDITION AT THE TIME OF DISCHARGE: Stable and improved. DISCHARGE DISPOSITION: Home with hospice. The patient is a known hospice patient and he will resume the care. PRIMARY CARE PHYSICIAN: Cielo Rojo M.D. DISCHARGE DIAGNOSES: 1. Sepsis. 2. Extensive soft tissue infection of the right arm. 3. Right arm cellulitis. 4. History of bipolar disorder. 5. Chronic obstructive pulmonary disease. 6. Chronic respiratory failure with hypoxia. 7. Chronic systolic congestive heart failure. 8. Hypertension. 9. Moderate protein calorie malnutrition. 10. Chronic hyponatremia. 11. Chronic mild to moderate alcohol use. DISCHARGE MEDICATIONS: New medications include metronidazole 500 mg p.o. t.i.d. for 10 days, doxycyc line 100 mg p.o. b.i.d. for 10 days, Florastor 250 mg for 14 days. Resume home medications are as fo llows; prednisone 20 mg daily, Corlanor 5 mg p.o. b.i.d., Zestril 10 mg p.o. b.i.d., [place] as needed, Xanax as needed, Symbicort 2 puffs q.4 hours p.r.n., torsemide 20 mg daily, albuterol inhaler as nee ded, and DuoNebs as needed. CONSULTATIONS INHOUSE: Include General Surgery, Dr. Mike. PROCEDURES DONE INHOUSE: I&D of the right forearm abscess with 15 cm incision involving one half of the circumference of the forearm. X-ray of the elbow and forearm of the right arm which shows promin ent soft tissue swelling. HISTORY OF PRESENTING ILLNESS: Mr. Arellano is a very pleasant 57-year-old male currently on [facility] for end-stage COPD who came to the emergency room with complaints of worsening right arm sw elling and blistering and redness and pain. Upon presentation to the ER, he underwent imaging studie s including x-ray of the forearm and elbow and both showed prominent soft tissue swelling. He was gi barb IV antibiotics empirically in the ER and was admitted for possible sepsis and right forearm cellu litis. He was a failure of outpatient antibiotic in the form of Keflex given by primary care physici an recently. Upon presentation, his CBC shows WBCs at 17.3 with 82% neutrophils. HOSPITAL COURSE: The patient was found to have extensive infection that seemed to be involving the d eeper tissues in the right forearm with fluctuance. General Surgery was consulted and Dr. Mike saw the patient and recommended I&D in the OR. This was done without any complications. The patient wa s continued on IV antibiotics and culture were sent to the lab from the surgery and they are still pe nding at this time. Preliminary cultures are showing Staphylococcus aureus. Blood cultures are nega tive at 48 hours. The patient did very well and was hemodynamically stable after surgery. Dr. Mike recommended that he can be discharged home. At this time, wound VAC was tried to arrange, but because patient is hosp ice, it was not been able to set up. However, wound care was arranged for him which was okay with Dr Fermín Mike as well. Hospice agency will provide wound care for this patient and he will follow up with Dr. Mike as an outpatient for continued wound care as well. Antibiotics were prescribed as above. He was seen and examined prior to discharge. PHYSICAL EXAMINATION: VITAL SIGNS: This morning include temperature 97.2, pulse of 78, respirations 18, saturating 99% on room air, blood pressure 109/70. GENERAL: No acute distress, awake, alert, oriented x3. CHEST: Clear to auscultation without any wheezing, rales or rhonchi. Rhythm is regular without any murmur, rubs or gallops. EXTREMITIES: Right arm is neatly dressed without any oozing. He is able to move his fingers and estes d without difficulty. LABORATORY DATA: CBC shows WBCs at 11.6, hemoglobin 9.1, platelet count of 248. Serum chemistry [place] ws sodium of 130, otherwise unremarkable. Discharge plan was discussed with the patient who verbalized understanding. He is instructed to foll ow up with General Surgery and primary care physician in 7-10 days of time. Total time spent in the discharge of this patient is 32 minutes including [id number] interaction an d discussion of his care with the casey saw operator and nursing staff.
[2017-10-01] MEDS ORDERED: metroNIDAZOLE 500 MG in Premix Bag 1 BAG IVPB SCH (18:00)
[2017-10-01] MEDS: Doxycycline 100 MG CAP PO SCH (20:57)
[2017-10-02] MEDS: Piperacillin/Tazobactam 3.375 GM in Sodium Chloride 0.9% 100 ML IVPB SCH ×2 (00:35→05:21)
[2017-10-02] MEDS: traMADol HCl 50 MG TAB PO PRN (05:13)
--- NOTE | 2017-10-02 09:01 | PDOC.PN ---
- Subjective Encounter Start Date: 10/02/17 Encounter Start Time: 09:01 Subjective: no new complaints.care discussed .told about culture results of MRSA -: denies any arm pain.no fever/chills/nausea/vomiting - Objective MAR Reviewed: Yes Vital Signs & Weight: Vital Signs (12 hours) Temp Pulse Resp BP BP BP Pulse Ox 10/02/17 07:22 98.0 F 70 18 112/70 100 10/02/17 03:46 98.6 F 80 20 146/71 H 94 L 10/01/17 21:04 109/70 Weight Admit Weight 107 lb 8 oz Weight 107 lb 8 oz I&O: 10/01/17 10/02/17 10/03/17 06:59 06:59 06:59 Intake Total 1400 1890 Output Total 2000 400 Balance -600 1490 Result Diagrams: 09/30/17 05:20 10/01/17 04:20 Additional Labs: Microbiology 09/29/17 17:50 Arm - Abscess Bacterial Culture - Preliminary 09/29/17 17:50 Arm - Abscess Anaerobic Culture - Preliminary Methicillin resistant S.aureus 09/29/17 17:50 Arm - Abscess Bacterial Culture - Preliminary 09/28/17 10:35 Venous blood - Right Arm Blood Culture - Preliminary NO GROWTH AT 48 HOURS 09/28/17 10:28 Venous blood - Left Arm Blood Culture - Preliminary NO GROWTH AT 48 HOURS LABS REVIEWED Phys Exam - Physical Examination Constitutional: NAD HEENT: PERRLA, moist MMs, sclera anicteric, oral pharynx no lesions Neck: no nodes, no JVD, supple, full ROM Respiratory: no wheezing, no rales, no rhonchi, clear to auscultation bilateral Cardiovascular: RRR, no significant murmur, no rub Gastrointestinal: soft, non-tender, no distention, positive bowel sounds Musculoskeletal: no edema, pulses present R arm dressed Neurological: non-focal, normal sensation, moves all 4 limbs Psychiatric: normal affect, A&O x 3 Skin: no rash Dx/Plan (1) Sepsis Code(s): A41.9 - SEPSIS, UNSPECIFIED ORGANISM Status: Acute Comment: MRSA+ ve (2) Blister of right upper arm with infection Code(s): S40.821A - BLISTER (NONTHERMAL) OF RIGHT UPPER ARM, INITIAL ENCOUNTER; L08.9 - LOCAL INFECTION OF THE SKIN AND SUBCUTANEOUS TISSUE, UNSP Status: Acute Qualifiers: Encounter type: initial encounter Qualified Code(s): S40.821A - Blister ( nonthermal) of right upper arm, initial encounter; L08.9 - Local infection of the skin and subcutaneous tissue, unspecified; L08.9 - Local infection of the skin and subcutaneous tissue, unspecified Comment: I&D 09/29/17.on IV Abx.following Cx (3) Right arm cellulitis Code(s): L03.113 - CELLULITIS OF RIGHT UPPER LIMB Status: Acute (4) Anxiety and depression Code(s): F41.9 - ANXIETY DISORDER, UNSPECIFIED; F32.9 - MAJOR DEPRESSIVE DISORDER, SINGLE EPISODE, UNSPECIFIED Status: Chronic (5) Bipolar 1 disorder Code(s): F31.9 - BIPOLAR DISORDER, UNSPECIFIED Status: Chronic (6) COPD (chronic obstructive pulmonary disease) Status: Chronic Comment: on hospice (7) Chronic respiratory failure with hypoxia Code(s): J96.11 - CHRONIC RESPIRATORY FAILURE WITH HYPOXIA Status: Chronic Comment: on Home O2 (8) Chronic systolic (congestive) heart failure Code(s): I50.22 - CHRONIC SYSTOLIC (CONGESTIVE) HEART FAILURE Status: Chronic (9) Hypertension Code(s): I10 - ESSENTIAL (PRIMARY) HYPERTENSION Status: Chronic (10) Protein-calorie malnutrition, moderate Code(s): E44.0 - MODERATE PROTEIN-CALORIE MALNUTRITION Status: Chronic (11) Hyponatremia Code(s): E87.1 - HYPO-OSMOLALITY AND HYPONATREMIA Status: Chronic Comment: due to chronic Beer intake - Plan DVT proph w/SCDs Pt DCed yesterday but held as wound care could not be arranged -: wating to hear from HH as pt now Dced from his hospice team -: new results of MRSA.No IV Access as dischraged yesterday -: will cont PO Doxy w Flagyl.will consult ID for final ABx selection -: HD stable.DC only when wound care arranged as high risk of worsening * . Review of Systems - Review of Systems Constitutional: negative: fever, chills, sweats, weakness, malaise, other Respiratory: negative: Cough, Dry, Shortness of Breath, Hemoptysis, SOB with Excertion, Pleuritic Pain, Sputum, Wheezing Cardiovascular: negative: chest pain, palpitations, orthopnea, paroxysmal nocturnal dyspnea, edema, light headedness, other Gastrointestinal: negative: Nausea, Vomiting, Abdominal Pain, Diarrhea, Constipation, Melena, Hematochezia, Other Genitourinary: negative: Dysuria, Frequency, Incontinence, Hematuria, Retention , Other Musculoskeletal: negative: Neck Pain, Shoulder Pain, Arm Pain, Back Pain, Hand Pain, Leg Pain, Foot Pain, Other Skin: negative: Rash, Lesions, Rogers, Bruising, Other Neurological: negative: Weakness, Numbness, Incoordination, Change in Speech, Confusion, Seizures, Other - Medications/Allergies Allergies/Adverse Reactions: Allergies Allergy/AdvReac Type Severity Reaction Status Date / Time No Known Drug Allergies Allergy Verified 10/11/16 06:42 Medications: Current Medications Acetaminophen (Tylenol) 650 mg PO Q4H PRN PRN Reason: Headache/Fever or Pain Acetaminophen (Tylenol) 1,000 mg PO Q6H PRN PRN Reason: Moderate to Severe Pain (6-10) Last Admin: 09/30/17 00:33 Dose: 1,000 mg Hydrocodone Bitart/Acetaminophen ([place] 10/325) 1 tab PO TID PRN PRN Reason: Pain Last Admin: 10/01/17 21:01 Dose: 1 tab Al Hydroxide/Mg Hydroxide (Maalox) 30 ml PO Q6H PRN PRN Reason: Heartburn or Indigestion Albuterol Sulfate (Proventil Hfa) 2 puff INH Q4H PRN PRN Reason: SOB &/or Wheezing Albuterol/Ipratropium (Duoneb) 3 ml NEB [id number] PRN PRN Reason: SOB &/or Wheezing Last Admin: 09/30/17 09:16 Dose: 3 ml Alprazolam (Xanax) 0.5 mg PO BID PRN PRN Reason: Anxiety Last Admin: 10/01/17 21:01 Dose: 0.5 mg Benzonatate (Tessalon) 100 mg PO Q4H PRN PRN Reason: Cough Bisacodyl (Dulcolax) 10 mg PO DAILYPRN PRN PRN Reason: Constipation Last Admin: 10/01/17 04:56 Dose: 10 mg Calcium Carbonate (Tums) 1,000 mg PO Q4H PRN PRN Reason: Heartburn or Indigestion Clonidine (Catapres) 0.1 mg PO Q4H PRN PRN Reason: Systolic BP > 160 Doxycycline Hyclate (Vibramycin) 100 mg PO BID [facility] Last Admin: 10/01/17 20:57 Dose: 100 mg Enoxaparin Sodium (Lovenox) 40 mg SC 0900 [facility] Last Admin: 10/01/17 09:16 Dose: 40 mg Guaifenesin (Robitussin Sf) 200 mg PO Q4H PRN PRN Reason: Cough Hydralazine HCl (Apresoline) 10 mg SLOW IVP Q4H PRN PRN Reason: Systolic BP > 170 Piperacillin Sod/Tazobactam (Sod 3.375 gm/ Sodium Chloride) 100 mls @ 200 mls/ hr IVPB Q6HR [facility] Last Admin: 10/02/17 05:21 Dose: Not Given Ibuprofen (Motrin) 600 mg PO Q6H PRN PRN Reason: Pain Ivabradine (Corlanor) 5 mg PO BID [facility] Last Admin: 10/01/17 20:57 Dose: 5 mg Lisinopril (Zestril) 10 mg PO BID [facility] Last Admin: 10/01/17 21:04 Dose: Not Given Metronidazole (Flagyl) 500 mg PO TID [facility] Mometasone Furoate/Formoterol Fumar (Dulera 200 Mcg/5 Mcg Inhaler) 2 puff INH Q4H PRN PRN Reason: SOB Nitroglycerin (Nitrostat) 0.4 mg SL Q5MIN PRN PRN Reason: Chest Pain Ondansetron HCl (Zofran) 4 mg IVP Q6H PRN PRN Reason: Nausea/Vomiting Polyethylene Glycol (Miralax) 17 gm PO DAILY [facility] Last Admin: 10/01/17 09:18 Dose: Not Given Prednisone (Prednisone) 20 mg PO DAILY [facility] Last Admin: 10/01/17 09:17 Dose: 20 mg Senna (Senokot) 2 tab PO HSPRN PRN PRN Reason: Constipation Sodium Chloride (Flush - Normal Saline) 10 ml IVF Q12HR [facility] Last Admin: 10/01/17 20:57 Dose: 10 ml Sodium Chloride (Flush - Normal Saline) 10 ml IVF PRN PRN PRN Reason: Saline Flush Torsemide (Demadex) 20 mg PO DAILY [facility] Last Admin: 10/01/17 09:17 Dose: 20 mg Tramadol HCl (Ultram) 50 mg PO Q4H PRN PRN Reason: Moderate Pain (4-6) Last Admin: 09/29/17 01:00 Dose: 50 mg Tramadol HCl (Ultram) 50 mg PO Q6H PRN PRN Reason: Pain Tramadol HCl (Ultram) 100 mg PO Q6H PRN PRN Reason: Pain Last Admin: 10/02/17 05:13 Dose: 100 mg
[2017-10-02] MEDS: HYDROcodone/Acetaminophen 10/325 mg Tablet PO PRN ×3 (09:05→18:59)
[2017-10-02] MEDS: ALPRAZolam 0.5 MG TAB PO PRN ×2 (09:05→18:59)
[2017-10-02] MEDS: Ivabradine 5 MG TAB PO SCH ×2 (09:06→21:45)
[2017-10-02] MEDS: Enoxaparin Sodium 40 MG/0.4 ML SYRINGE SC SCH (09:07)
[2017-10-02] MEDS: Doxycycline 100 MG CAP PO SCH (09:07)
[2017-10-02] MEDS: Lisinopril 10 MG TAB PO SCH ×2 (09:08→21:46)
[2017-10-02] MEDS: predniSONE 20 MG TAB PO SCH (09:08)
[2017-10-02] MEDS: Torsemide 20 MG TAB PO SCH (09:09)
[2017-10-02] MEDS: Polyethylene Glycol 3350 17 GM Packet PO SCH (09:11)
[2017-10-02] MEDS: metroNIDAZOLE 500 MG TAB PO SCH ×2 (10:12→15:02)
--- NOTE | 2017-10-02 17:19 | CON ---
DATE OF CONSULTATION: 10/02/2017 REASON FOR CONSULTATION: Abscess, right forearm. HISTORY OF PRESENT ILLNESS: A 57-year-old who has a history of alcoholism, COPD with end-stage conditions on hospice care for the diagnosis of COPD, admitted with right forearm inflammatory changes. Initial impression was right upper extremity cellulitis, was given IV antimicrobial therapy and underwent surgical debridement by Dr. Mike the same day. There was an alleged longitudinal incision along the volar aspect of the lateral forearm and copious amount of purulent material was submitted for culture and washed out and the wound has been packed. He is currently in no distress, pleasant. No headaches , no change in visual symptoms, sore throat, aphasia, dysphagia. Mild dyspnea at rest. No chest pain, no sputum production. No abdominal pain. The patient was constipated, now has loose stools intermittently. No abdominal cramps. Voiding without difficulty. No joint symptoms. PAST MEDICAL HISTORY: End-stage COPD on hospice care, chronic smoking up until two years ago, alcoholism, still actively drinking, bipolar disorder. PAST SURGICAL HISTORY: The recent I&D of the right forearm. SOCIAL HISTORY: As above. ALLERGIES: None. FAMILY HISTORY: Noncontributory. CURRENT MEDICATIONS: Tylenol, Hessel, Maalox, Proventil, DuoNeb, Xanax, Tessalon , Dulcolax, Tums, Catapres, tobramycin, Flagyl, prednisone. PHYSICAL EXAMINATION: VITAL SIGNS: T-max 98.6, blood pressure 109/70, pulse 70, respirations 18, O2 sat 100%. SKIN: Shows the area of surgical debridement along the lateral aspect of the right forearm. There is a linear area kind of elliptical area of wound opening. There is some undermining. The base of the wound has about I would say 75% red tissue and a little bit of yellow slough around the edges. It measures about 12.5 cm length and 3 cm in which no lymphadenopathy. HEENT: Ocular movements conjugate. Sclerae white. Pupils are equal. Oral cavity with no remaining [place] teeth. NECK: Supple, no jugular vein distention. LUNGS: With symmetric clear breath sounds. Distant heart sounds. No obvious crackles or wheezing. CARDIOVASCULAR: S1, S2. ABDOMEN: Soft, without any ascites, no organomegaly. No tenderness or bladder distention. GENITOURINARY: Genital: Normal. EXTREMITIES: No joint inflammatory activity. Pulses 1+ in dorsalis pedis. NEUROLOGIC: Plantar responses are flexure. No clonus. He is awake, oriented, follows commands, pleasant. LABORATORY DATA: White cell count down from 17-11.6, hemoglobin 9.1, platelets 248, 75% neutrophils. Sodium 130, creatinine 0.68, AST 58, ALT 38, alkaline phosphatase 67, albumin 3.7. Vancomycin trough 45 and the arm abscess with methicillin-resistant Staphylococcus aureus. Clindamycin was susceptible to doxycycline as well, linezolid, rifampin, tetracycline, trimethoprim sulfa, vancomycin. Clindamycin BAKARI less than 0.25. We have elbow x-ray, soft tissue swelling, but no other complication. ASSESSMENT: Chronic obstructive pulmonary disease, alcoholism, likely chronic liver disease and now evidence of abscess in right forearm secondary to methicillin-resistant Staphylococcus aureus. DISCUSSION: The blood cultures are at 48 hours negative and he should be followed to the end to make sure the patient was not bacteremic. Consider switching to oral clindamycin for discharge planning for 10 days. Follow up in my clinic in a week or 2. In view of the issues relating to his alcohol abuse and possible associated malnutrition, healing impairment is a concern in this patient and careful follow up would be advisable to reassure us that wound healing proceeds without any problems. JUDITH
[2017-10-02 18:39] LABS: HIV (1/2) Antibody/Antigen Non-Reactive (NonReactive); HIV 1/2 INDEX 0.06 S/CO (<1.00)
[2017-10-02] MEDS ORDERED: HYDROcodone/Acetaminophen 10/325 mg Tablet PO SCH (18:45)
[2017-10-02] MEDS: Clindamycin 150 MG CAP PO SCH (18:59)
[2017-10-03] MEDS: HYDROcodone/Acetaminophen 10/325 mg Tablet PO PRN ×2 (01:12→09:26)
[2017-10-03] MEDS: ALPRAZolam 0.5 MG TAB PO PRN ×2 (01:12→09:26)
[2017-10-03] MEDS: Clindamycin 150 MG CAP PO SCH ×3 (01:12→11:45)
[2017-10-03 07:16] VITALS: BP 147/87; TEMP 98.2
--- NOTE | 2017-10-03 09:09 | PDOC.PN ---
- Subjective Encounter Start Date: 10/03/17 Encounter Start Time: 09:09 Subjective: feels good. no new complaints.denies any pain/swelling/fever/chills - Objective MAR Reviewed: Yes Vital Signs & Weight: Vital Signs (12 hours) Temp Pulse Resp BP BP Pulse Ox 10/03/17 07:13 98.2 F 72 16 147/87 H 100 10/02/17 21:46 110/68 Weight Admit Weight 107 lb 8 oz Weight 107 lb 8 oz I&O: 10/02/17 10/03/17 10/04/17 06:59 06:59 06:59 Intake Total 1890 2220 Output Total 400 Balance 1490 2220 Result Diagrams: 09/30/17 05:20 10/01/17 04:20 Additional Labs: Microbiology 09/29/17 17:50 Arm - Abscess Anaerobic Culture - Final 09/29/17 17:50 Arm - Abscess Bacterial Culture - Preliminary 09/29/17 17:50 Arm - Abscess Methicillin resistant S.aureus 09/28/17 10:35 Venous blood - Right Arm Blood Culture - Preliminary NO GROWTH AT 48 HOURS 09/28/17 10:28 Venous blood - Left Arm Blood Culture - Preliminary NO GROWTH AT 48 HOURS Phys Exam - Physical Examination Constitutional: NAD HEENT: PERRLA, moist MMs, sclera anicteric, oral pharynx no lesions Neck: no nodes, no JVD, supple, full ROM Respiratory: no wheezing, no rales, no rhonchi, clear to auscultation bilateral Cardiovascular: RRR, no significant murmur, no rub Gastrointestinal: soft, non-tender, no distention, positive bowel sounds Musculoskeletal: no edema, pulses present, edema present right forearm dressed w/o oozing.moving hand w/o difficulty Neurological: non-focal, normal sensation, moves all 4 limbs Psychiatric: normal affect, A&O x 3 Skin: no rash Dx/Plan (1) Sepsis Code(s): A41.9 - SEPSIS, UNSPECIFIED ORGANISM Status: Acute Comment: MRSA+ ve (2) Blister of right upper arm with infection Code(s): S40.821A - BLISTER (NONTHERMAL) OF RIGHT UPPER ARM, INITIAL ENCOUNTER; L08.9 - LOCAL INFECTION OF THE SKIN AND SUBCUTANEOUS TISSUE, UNSP Status: Acute Qualifiers: Encounter type: initial encounter Qualified Code(s): S40.821A - Blister ( nonthermal) of right upper arm, initial encounter; L08.9 - Local infection of the skin and subcutaneous tissue, unspecified; L08.9 - Local infection of the skin and subcutaneous tissue, unspecified Comment: I&D 09/29/17.on IV Abx.following Cx (3) Right arm cellulitis Code(s): L03.113 - CELLULITIS OF RIGHT UPPER LIMB Status: Acute (4) Anxiety and depression Code(s): F41.9 - ANXIETY DISORDER, UNSPECIFIED; F32.9 - MAJOR DEPRESSIVE DISORDER, SINGLE EPISODE, UNSPECIFIED Status: Chronic (5) Bipolar 1 disorder Code(s): F31.9 - BIPOLAR DISORDER, UNSPECIFIED Status: Chronic (6) COPD (chronic obstructive pulmonary disease) Status: Chronic Comment: on hospice (7) Chronic respiratory failure with hypoxia Code(s): J96.11 - CHRONIC RESPIRATORY FAILURE WITH HYPOXIA Status: Chronic Comment: on Home O2 (8) Chronic systolic (congestive) heart failure Code(s): I50.22 - CHRONIC SYSTOLIC (CONGESTIVE) HEART FAILURE Status: Chronic (9) Hypertension Code(s): I10 - ESSENTIAL (PRIMARY) HYPERTENSION Status: Chronic (10) Protein-calorie malnutrition, moderate Code(s): E44.0 - MODERATE PROTEIN-CALORIE MALNUTRITION Status: Chronic (11) Hyponatremia Code(s): E87.1 - HYPO-OSMOLALITY AND HYPONATREMIA Status: Chronic Comment: due to chronic Beer intake - Plan plan discussed w/ family, continue antibiotics, DVT proph w/SCDs OK to DC on PO clindamycin.prescription given -: F/U OP w ID and GS. -: for wound care -: HD stable * . Review of Systems - Review of Systems Constitutional: negative: fever, chills, sweats, weakness, malaise, other Respiratory: negative: Cough, Dry, Shortness of Breath, Hemoptysis, SOB with Excertion, Pleuritic Pain, Sputum, Wheezing Cardiovascular: negative: chest pain, palpitations, orthopnea, paroxysmal nocturnal dyspnea, edema, light headedness, other Gastrointestinal: negative: Nausea, Vomiting, Abdominal Pain, Diarrhea, Constipation, Melena, Hematochezia, Other Genitourinary: negative: Dysuria, Frequency, Incontinence, Hematuria, Retention , Other Musculoskeletal: negative: Neck Pain, Shoulder Pain, Arm Pain, Back Pain, Hand Pain, Leg Pain, Foot Pain, Other Skin: negative: Rash, Lesions, Rogers, Bruising, Other Neurological: negative: Weakness, Numbness, Incoordination, Change in Speech, Confusion, Seizures, Other - Medications/Allergies Allergies/Adverse Reactions: Allergies Allergy/AdvReac Type Severity Reaction Status Date / Time No Known Drug Allergies Allergy Verified 10/11/16 06:42 Medications: Current Medications Acetaminophen (Tylenol) 650 mg PO Q4H PRN PRN Reason: Headache/Fever or Pain Acetaminophen (Tylenol) 1,000 mg PO Q6H PRN PRN Reason: Moderate to Severe Pain (6-10) Last Admin: 09/30/17 00:33 Dose: 1,000 mg Hydrocodone Bitart/Acetaminophen ([place] 10/325) 1 tab PO TID PRN PRN Reason: Pain Last Admin: 10/03/17 01:12 Dose: 1 tab Al Hydroxide/Mg Hydroxide (Maalox) 30 ml PO Q6H PRN PRN Reason: Heartburn or Indigestion Albuterol Sulfate (Proventil Hfa) 2 puff INH Q4H PRN PRN Reason: SOB &/or Wheezing Albuterol/Ipratropium (Duoneb) 3 ml NEB [id number] PRN PRN Reason: SOB &/or Wheezing Last Admin: 09/30/17 09:16 Dose: 3 ml Alprazolam (Xanax) 0.5 mg PO TID PRN PRN Reason: Anxiety Last Admin: 10/03/17 01:12 Dose: 0.5 mg Benzonatate (Tessalon) 100 mg PO Q4H PRN PRN Reason: Cough Bisacodyl (Dulcolax) 10 mg PO DAILYPRN PRN PRN Reason: Constipation Last Admin: 10/01/17 04:56 Dose: 10 mg Calcium Carbonate (Tums) 1,000 mg PO Q4H PRN PRN Reason: Heartburn or Indigestion Clindamycin HCl (Cleocin) 300 mg PO Q6HR DONNA Last Admin: 10/03/17 05:47 Dose: 300 mg Clonidine (Catapres) 0.1 mg PO Q4H PRN PRN Reason: Systolic BP > 160 Enoxaparin Sodium (Lovenox) 40 mg SC 0900 [facility] Last Admin: 10/02/17 09:07 Dose: Not Given Guaifenesin (Robitussin Sf) 200 mg PO Q4H PRN PRN Reason: Cough Hydralazine HCl (Apresoline) 10 mg SLOW IVP Q4H PRN PRN Reason: Systolic BP > 170 Ibuprofen (Motrin) 600 mg PO Q6H PRN PRN Reason: Pain Ivabradine (Corlanor) 5 mg PO BID [facility] Last Admin: 10/02/17 21:45 Dose: 5 mg Lisinopril (Zestril) 10 mg PO BID [facility] Last Admin: 10/02/17 21:46 Dose: 10 mg Mometasone Furoate/Formoterol Fumar (Dulera 200 Mcg/5 Mcg Inhaler) 2 puff INH Q4H PRN PRN Reason: SOB Nitroglycerin (Nitrostat) 0.4 mg SL Q5MIN PRN PRN Reason: Chest Pain Ondansetron HCl (Zofran) 4 mg IVP Q6H PRN PRN Reason: Nausea/Vomiting Polyethylene Glycol (Miralax) 17 gm PO DAILY [facility] Last Admin: 10/02/17 09:11 Dose: Not Given Prednisone (Prednisone) 20 mg PO DAILY [facility] Last Admin: 10/02/17 09:08 Dose: 20 mg Saccharomyces Boulardii (Florastor) 250 mg PO DAILY [facility] Senna (Senokot) 2 tab PO HSPRN PRN PRN Reason: Constipation Sodium Chloride (Flush - Normal Saline) 10 ml IVF Q12HR [facility] Last Admin: 10/02/17 21:47 Dose: Not Given Sodium Chloride (Flush - Normal Saline) 10 ml IVF PRN PRN PRN Reason: Saline Flush Torsemide (Demadex) 20 mg PO DAILY [facility] Last Admin: 10/02/17 09:09 Dose: 20 mg Tramadol HCl (Ultram) 50 mg PO Q6H PRN PRN Reason: Pain Tramadol HCl (Ultram) 100 mg PO Q6H PRN PRN Reason: Pain Last Admin: 10/02/17 05:13 Dose: 100 mg
[2017-10-03] MEDS: Lisinopril 10 MG TAB PO SCH (09:21)
[2017-10-03] MEDS: Ivabradine 5 MG TAB PO SCH (09:21)
[2017-10-03] MEDS: predniSONE 20 MG TAB PO SCH (09:22)
[2017-10-03] MEDS: Torsemide 20 MG TAB PO SCH (09:22)
[2017-10-03] MEDS: Enoxaparin Sodium 40 MG/0.4 ML SYRINGE SC SCH (09:24)
[2017-10-03] MEDS: Polyethylene Glycol 3350 17 GM Packet PO SCH (09:26)
--- NOTE | 2017-10-03 12:12 | DIS ---
DATE OF ADMISSION: 09/28/2017 DATE OF DISCHARGE: 10/03/2017 CONDITION AT THE TIME OF DISCHARGE: Stable and improved. Please see the complete discharge summary dictated by myself on 10/01/2017. HOSPITAL COURSE: The patient was discharged, but was not able to go because wound care was not arran ged for him. This patient was hospice and initially hospice agencies said that they will do the woun d care, but at the time of discharge, they refused. They said that the patient will be discharged fr om the hospice services as he no longer requires it. Because of this, the discharge was delayed. Ev entually, we were able to secure Home Health for this patient with [facility]. They will come and do his wound care. Wound care was provided in the hospital and this morning, the wound care people did the dressing that last him for the next 3 days and then wound care will garbage pick up man the care for wet to d ry dressing on the daily basis. The only change since 10/01/2017 is that his cultures grew out MRSA and Dr. Lam was consulted. Thi s was quite sensitive, so he was changed to clindamycin and he will continue to take the clindamycin for the next 10 days and follow up with Dr. Lam as an outpatient. He was seen and examined prior to discharge. Please see Hospitalist progress note from today's date for further detail including [id number] interaction.
[2017-10-04] MEDS ORDERED: Saccharomyces boulardii 250 MG CAP PO SCH (09:00)
== END 2017-10-03 13:55 | disposition hospice, inpatient (51) | DRG 854 ==
LOC: ERS 09:39 → T4-B 15:18
PROVIDERS: ADMIT Internal Medicine; ATTEND Internal Medicine
PROC: 0J9G0ZZ Drainage of Right Lower Arm Subcutaneous Tissue and Fascia, Open Approach (ICD-10-PCS; principal; 2017-09-29)
DX: A41.9 Sepsis, unspecified organism (principal); L02.413 Cutaneous abscess of right upper limb; E87.1 Hypo-osmolality and hyponatremia; L03.113 Cellulitis of right upper limb; J96.11 Chronic respiratory failure with hypoxia; E44.0 Moderate protein-calorie malnutrition; I50.22 Chronic systolic (congestive) heart failure; Z68.1 Body mass index [BMI] 19.9 or less, adult; J44.9 Chronic obstructive pulmonary disease, unspecified; F31.9 Bipolar disorder, unspecified; Z87.891 Personal history of nicotine dependence; F10.10 Alcohol abuse, uncomplicated; F41.9 Anxiety disorder, unspecified; E87.6 Hypokalemia; I11.0 Hypertensive heart disease with heart failure; L08.9 Local infection of the skin and subcutaneous tissue, unspecified; S40.821A Blister (nonthermal) of right upper arm, initial encounter
CPT/HCPCS: 36415; 80048; 80053; 80202; 83605; 85025; 87040; 87070; 87077; 87186; 87205; 87389; 94640; 96365; 96367; A4216; J1650; J2543; J2704; J3370; J3490; J7050; J7506; J7620

== ENCOUNTER 2017-11-10 11:18 | Outpatient (CLI) | payer OTHER | END 2017-11-10 11:19 | disposition home or self-care (01) | LOC: BICRAD 11:18 | PROVIDERS: ATTEND Internal Medicine Critical Care Medicine | DX: R06.00 Dyspnea, unspecified (principal) | CPT/HCPCS: 71046 ==

== ENCOUNTER 2017-12-17 23:05 | Emergency (ER) | payer OTHER ==
[2017-12-17 23:51] LABS: Hemoglobin 8.7 g/dL (14.0-18.0); Mean Corpuscular Hemoglobin 22.1 pg (27.0-31.0); Mean Corpuscular Volume 75.1 fL (78.0-98.0); Red Blood Cell (RBC) Count 3.93 mill/uL (4.70-6.10)
--- NOTE | 2017-12-18 | RAD ---
ONE VIEW CHEST: 12/17/17 COMPARISON: 10/11/16 HISTORY: Dyspnea. FINDINGS: Normal cardiac silhouette. Pulmonary vessels are slightly prominent centrally. Lungs are hyperinflate d. Emphysematous changes are noted predominantly in the upper lobes. There is no consolidation or mas s. No pleural effusion or pneumothorax. No osseous abnormalities. IMPRESSION: 1. Emphysema. COPD. Hyperinflation. 2. Fullness of both central pulmonary arteries. Correlate for pulmonary artery hypertension. Be tter interrogation with a two view chest radiograph is recommended. Additionally, a nonemergent chest CT to better evaluate with the hilum and pulmonary vascular structures is recommended. POS: [facility]
[2017-12-18 00:08] LABS: #Basophils 0.1 thou/uL (0.0-0.2); #Eosinphils 0.4 thou/uL (0.0-0.7); #Lymphocytes 2.6 thou/uL (1.20-3.40); #Monocytes 1.5 thou/uL (0.11-0.59); #Neutrophils 7.5 thou/uL (1.40-6.50); %Basophils 0.5 % (0.0-1.0); %Lymphocytes 21.7 % (21.0-51.0); %Monocytes 12.3 % (0.0-10.0); %Neutrophils 62.4 % (42.0-75.0); ALT (SGPT) 18 U/L (8-55); AST (SGOT) 26 U/L (5-34); Albumin 4.2 g/dL (3.5-5.0); Alkaline Phosphatase 57 U/L (40-150); Anion Gap 12 mmol/L (10-20); BUN (Urea Nitrogen) 8 mg/dL (8.4-25.7); Bilirubin, Total 0.2 mg/dL (0.2-1.2); CK (CPK) 79 U/L (30-200); Calc. Creatinine Clearance 0 mL/min (70-130); Calcium 8.4 mg/dL (7.8-10.44); Carbon Dioxide 27 mmol/L (22-29); Chloride 95 mmol/L (98-107); Estimated GFR-MDRD Greater than 90; Globulin 2.4 g/dL (2.4-3.5); Glucose 89 mg/dL (70-105); Hypochromia SLIGHT = 6-15 cells (100X) (0-5/hpf); MDiff Complete? YES; Mean Corpuscular HGB CONC 29.4 g/dL (32.0-36.0); Mean Platelet Volume 9.5 fL (7.4-10.4); Platelet Count 323 thou/uL (130-400); Potassium 4.2 mmol/L (3.5-5.1); Protein, Total 6.6 g/dL (6.0-8.3); RBC Distribution Width 20.9 % (11.5-14.5); Sodium 130 mmol/L (136-145)
[2017-12-18 00:11] LABS: CKMB 5.6 ng/mL (0-6.6); Troponin I Less than 0.010 ng/mL (< 0.028)
[2017-12-18 00:51] LABS: Bilirubin Negative (Negative); Blood, Urine Negative (Negative); Clarity CLEAR (Clear); Glucose, Urine (Dipstick) Negative (Negative); Leukocyte Negative (Negative); Nitrite Negative (Negative); Protein, Urine (Dipstick) Negative (Neg-Trace); Specific Gravity, Urine 1.012 (1.002-1.036); Urobilinogen 0.2 mg/dL (0.2-1.0); pH, Urine 6.5 (5.0-9.0)
--- NOTE | 2017-12-20 11:37 | EKG ---
Test Reason : Blood Pressure : / mmHG Vent. Rate : 115 BPM Atrial Rate : 115 BPM P-R Int : 154 ms QRS Dur : 080 ms QT Int : 310 ms P-R-T Axes : 086 043 081 degrees QTc Int : 428 ms Sinus tachycardia Low voltage QRS Borderline ECG Confirmed by EKATERINA MORALES DO ([id number]), digital editor NAKUL PAUL ([id number]) on 12/20/2017 11:37:09 AM Referred By: Confirmed By:EKATERINA MORALES DO
== END 2017-12-18 01:40 | disposition home or self-care (01) ==
LOC: ERS 23:05
DX: J44.1 Chronic obstructive pulmonary disease with (acute) exacerbation (principal); I10 Essential (primary) hypertension; F41.9 Anxiety disorder, unspecified; G43.909 Migraine, unspecified, not intractable, without status migrainosus; F31.9 Bipolar disorder, unspecified; Z87.891 Personal history of nicotine dependence
CPT/HCPCS: 36415; 71045; 80053; 81003; 82553; 83605; 84484; 85025; 85379; 87040; 87086; 93005; 96360; 96361

== ENCOUNTER 2018-01-07 11:13 | Outpatient (CLI) | payer OTHER ==
--- NOTE | 2018-01-07 14:59 | RAD ---
THREE VIEWS CERVICAL SPINE: HISTORY: Cervical spondylosis with myelopathy. COMPARISON: None. FINDINGS: Lateral neutral, lateral flexion, and lateral extension of the cervical spine demonstrate cervical sp ine from C1 through C6. Evaluation of the C7 vertebral body and cervicothoracic junction is limited. There is no prevertebral soft tissue swelling. In the neutral position, there is 4.9 mm anterolisthesis of C3 upon C4. Upon extension, there is 3 m m anterolisthesis of C3 upon C4. Upon flexion, there is 4.4 mm anterolisthesis of C3 upon C4. There is loss of disk space height and osteophyte formation at C5-c6 and C6-C7. IMPRESSION: Anterolisthesis of C3 upon C4. POS: [facility]
--- NOTE | 2018-01-07 16:01 | MRI ---
CERVICAL SPINE CT WITHOUT CONTRAST: DATE: 01/07/18. COMPARISON: None. HISTORY: Neck pain with radiculopathy. TECHNIQUE: Multiplanar, multisequence MR imaging of the cervical spine is provided without contrast. FINDINGS: Persistent motion artifact limits detailed assessment. The axial imaging is significantly limited by motion. The sagittal STIR imaging is also significantly limited by motion. The sagittal imaging de monstrates fluid in the region of the facet joint on the left at C3-4 and on the right at C4-5. There is moderate degenerative change at the atlantoaxial interspace. At C3-4, there is 3 mm of anterolisthesis. At C4-5, there is 4 mm of anterolisthesis. At C7-T1, there is 4 mm of anterolisthesis. The degree of motion artifact limits detailed assessment for central canal and/or neural foraminal st enosis within the cervical spine. C2-3: There is bilateral facet and uncovertebral osteophyte formation, left greater than right. Mil d left neural foraminal stenosis. No significant central canal or right neural foraminal stenosis. C3-4: There is disk space narrowing, disk desiccation, and disk bulge effacing the ventral thecal sa c and abutting the ventral aspect of the cord. There is posterior ligamentous hypertrophy. There is moderate central canal stenosis. There is prominent bilateral facet and uncovertebral osteophyte fo rmation with moderate/severe bilateral neural foraminal stenosis, right greater than left. C4-5: Mild central canal stenosis on the basis of disk desiccation and mild disk bulge. Bilateral f acet and uncovertebral osteophyte formation noted, left greater than right, with moderate bilateral n eural foraminal stenosis. C5-6: There is disk space narrowing, disk desiccation, and disk bulge with partial effacement of the ventral thecal sac and mild central canal stenosis. There is anterior osteophyte formation. There is bilateral facet and uncovertebral osteophyte formation, left greater than right. Moderate t o severe left neural foraminal stenosis. Mild right neural foraminal stenosis. C6-7: There is disk space narrowing, disk desiccation, anterior osteophyte formation, and disk bulge with partial effacement of the ventral thecal sac and moderate central canal stenosis. Bilateral fa cet and uncovertebral osteophyte formation noted with moderate bilateral neural foraminal stenosis. C7-T1: There is disk space narrowing, disk desiccation, and disk bulge partially effacing the ventra l thecal sac. There is posterior ligamentous hypertrophy with moderate neural foraminal stenosis kristi aterally as well as moderate central canal stenosis. No discrete focal area of abnormal signal intensity identified within the cervical cord. IMPRESSION: Prominent degenerative changes within the cervical spine as detailed above. Motion limits detailed a ssessment. POS: [facility]
== END 2018-01-07 11:14 | disposition home or self-care (01) ==
LOC: TBSIIMAG 11:13
PROVIDERS: ATTEND Neurological Surgery
DX: M47.12 Other spondylosis with myelopathy, cervical region (principal); M43.12 Spondylolisthesis, cervical region
CPT/HCPCS: 72040; 72141

== ENCOUNTER 2018-02-10 09:23 | Emergency (ER) | payer OTHER ==
[2018-02-10] MEDS ORDERED: HYDROcodone/Acetaminophen 5/325 mg Tablet ONE (09:45)
--- NOTE | 2018-02-10 11:21 | RAD ---
PORTABLE AP CHEST XRAY: DATE: 02/10/18. HISTORY: Shortness of breath. COMPARISON: 01/13/18 and the study on 12/17/17. FINDINGS: The lungs remain hyperexpanded with lucency in the upper lung zones likely related to emphysematous c hanges. Cardiac silhouette and pulmonary vasculature are within normal limits. Lungs are clear. Th ere has been no interval change from prior exams. IMPRESSION: 1. Stable chest without evidence of an acute cardiopulmonary process. 2. Chronic obstructive pulmonary disease. POS: [facility]
--- NOTE | 2018-02-14 12:23 | EKG ---
Test Reason : SOB Blood Pressure : / mmHG Vent. Rate : 106 BPM Atrial Rate : 106 BPM P-R Int : 154 ms QRS Dur : 076 ms QT Int : 304 ms P-R-T Axes : 087 032 076 degrees QTc Int : 403 ms Sinus tachycardia Low voltage QRS Cannot rule out Anterior infarct , age undetermined Abnormal ECG Confirmed by AMBROSIO BORGES ([id number]), mapping editor NAKUL PAUL ([id number]) on 02/14/2018 12:23:22 PM Referred By: Confirmed By:AMBROSIO BORGES
== END 2018-02-10 11:15 | disposition home or self-care (01) ==
LOC: ERS 09:23
DX: J44.9 Chronic obstructive pulmonary disease, unspecified (principal); G89.29 Other chronic pain; M54.2 Cervicalgia; G43.909 Migraine, unspecified, not intractable, without status migrainosus; I11.0 Hypertensive heart disease with heart failure; I50.9 Heart failure, unspecified; F41.9 Anxiety disorder, unspecified; F31.9 Bipolar disorder, unspecified; F17.210 Nicotine dependence, cigarettes, uncomplicated; Z79.899 Other long term (current) drug therapy
CPT/HCPCS: 71045; 93005; 94640; J7620

== ENCOUNTER 2018-03-02 21:09 | Inpatient (IN) | payer OTHER ==
[2018-03-02 21:44] LABS: Hemoglobin 12.8 g/dL (14.0-18.0); Mean Corpuscular Hemoglobin 24.5 pg (27.0-31.0); Mean Corpuscular Volume 83.8 fL (78.0-98.0); Red Blood Cell (RBC) Count 5.22 mill/uL (4.70-6.10); White Blood Cell (WBC) Count 14.2 thou/uL (4.8-10.8)
[2018-03-02] MEDS ORDERED: Azithromycin 250 MG TAB ONE (21:44)
[2018-03-02] MEDS ORDERED: methylPREDNISolone Sod Succ/PF 125 MG/2 ML VIAL ONE (21:45)
[2018-03-02] MEDS ORDERED: cefTRIAXone\\ROCEPHIN 1 GM VIAL ONE (21:45)
--- NOTE | 2018-03-02 21:48 | RAD ---
PORTABLE UPRIGHT CHEST ONE VIEW: 03/02/2018 8:38 p.m. HISTORY: Dyspnea. COMPARISON: 02/10/2018 FINDINGS: Changes of COPD are again seen. The heart size is normal. The aorta is tortuous. No lobar consolid ations, pneumothoraces, or pleural effusions are seen. IMPRESSION: No acute process. POS: [facility]
[2018-03-02] MEDS ORDERED: Magnesium 2 GM/50 ML 2 GM in Premix Bag 1 BAG IVPB SCH (22:00)
[2018-03-02 22:03] LABS: ALT (SGPT) 25 U/L (8-55); AST (SGOT) 27 U/L (5-34); Albumin 4.7 g/dL (3.5-5.0); Alkaline Phosphatase 63 U/L (40-150); Anion Gap 13 mmol/L (10-20); BUN (Urea Nitrogen) 12 mg/dL (8.4-25.7); Bilirubin, Total 0.2 mg/dL (0.2-1.2); Calc. Creatinine Clearance 0 mL/min (70-130); Calcium 9.6 mg/dL (7.8-10.44); Carbon Dioxide 32 mmol/L (22-29); Chloride 97 mmol/L (98-107); Estimated GFR-MDRD Greater than 90; Globulin 2.6 g/dL (2.4-3.5); Glucose 92 mg/dL (70-105); Potassium 4.9 mmol/L (3.5-5.1); Protein, Total 7.3 g/dL (6.0-8.3); Sodium 137 mmol/L (136-145)
[2018-03-02 22:08] LABS: #Basophils 0.1 thou/uL (0.0-0.2); #Eosinphils 0.3 thou/uL (0.0-0.7); #Lymphocytes 2.3 thou/uL (1.20-3.40); #Monocytes 1.3 thou/uL (0.11-0.59); #Neutrophils 10.3 thou/uL (1.40-6.50); %Basophils 0.6 % (0.0-1.0); %Eosinophils 2.2 % (0.0-10.0); %Lymphocytes 15.9 % (21.0-51.0); %Monocytes 8.9 % (0.0-10.0); %Neutrophils 72.4 % (42.0-75.0); Anisocytosis SLIGHT = 6-15 cells (100X) (0-5/hpf); Hypochromia SLIGHT = 6-15 cells (100X) (0-5/hpf); MDiff Complete? YES; Mean Corpuscular HGB CONC 29.2 g/dL (32.0-36.0); Mean Platelet Volume 5.6 fL (7.4-10.4); Platelet Count 260 thou/uL (130-400); RBC Distribution Width 27.6 % (11.5-14.5); Target Cells SLIGHT = 2-5 cells (100X) (0-1/hpf); Troponin I Less than 0.010 ng/mL (< 0.028)
[2018-03-02 22:16] LABS: CKMB 7.7 ng/mL (0-6.6)
[2018-03-02 23:03] LABS: Actual Bicarbonate (HCO3a) 31.1 mEq/L (22-28); Analyzer IN Cardio ER; Base Excess (BEa) 3.9 mEq/L (-2.0 to +3.0); CO2 Tension 59.7 mmHg (35.0-45.0); Calcium, Ionized 1.16 mmol/L (1.12-1.30); Carboxyhemoglobin (COHb) 5.4 gm% (0.0-3.0); O2 Tension (PaO2) 263.2 mmHg (> 80.0); Potassium - ABG Lab 4.38 mmol/L (3.70-5.30); pH, Arterial 7.34 (7.35-7.45)
[2018-03-02 23:06] LABS: ALV-art Gradient 18.675 (0-20); Puncture Site LRA
[2018-03-03] MEDS ORDERED: Acetaminophen 325 MG TAB PO PRN (01:41)
[2018-03-03] MEDS ORDERED: Ondansetron HCl/PF 4 MG/2 ML Vial IVP PRN (01:41)
[2018-03-03] MEDS ORDERED: Ondansetron ODT 4 MG TAB SL PRN (01:41)
[2018-03-03 01:45] VITALS: BMI 14.6
[2018-03-03] MEDS ORDERED: SILDENAFIL CITRATE 100 MG PO PRN (04:13)
[2018-03-03] MEDS ORDERED: Non-Formulary Item 1 EACH (Budesonide-Formoterol [Symbicort 160-4.5] 2 PUFF) INH PRN (04:13)
[2018-03-03] MEDS ORDERED: Mometasone/Formoterol 120 PUFF INHALER INH PRN (04:21)
--- NOTE | 2018-03-03 05:13 | HP ---
CHIEF COMPLAINT: Shortness of breath. HISTORY OF PRESENT ILLNESS: This is a 58-year-old male with past medical history of congestive heart failure, COPD, hypertension, presenting with shortness of breath which has been ongoing for the past 3 months. Patient states that he has always had shortness of breath; however, for the past 3 months , the shortness of breath has progressively been getting worse and he has recently been hospitalized due to the shortness of breath and patient states that he used to have oxygen at home, but they stopp ed giving the oxygen to him and since then he feels like his shortness of breath has been worsened. The patient also states that he quit smoking in the past 3 days, he has started smoking again and he has been smoking a pack and half for the whole 3 days. Other than the shortness of breath, the patie nt denies any headaches, nausea, vomiting, dizziness, chest pain, palpitations, or abdominal pain. REVIEW OF SYSTEMS: The patient admits shortness of breath. Otherwise, as documented in the HPI, all other systems were reviewed and are negative. PAST MEDICAL HISTORY: CHF, hypertension, COPD, migraine headaches, hypertension, and chronic back pa in. FAMILY HISTORY: Reviewed and noncontributory to this visit. PAST SURGICAL HISTORY: No surgical history noted. PSYCHIATRIC HISTORY: The patient has history of anxiety, bipolar disorder. SOCIAL HISTORY: Patient is a tobacco smoker. Patient has been smoking for years. The patient smoke s a pack per day and patient is trying to quit smoking. The patient denies any illicit drug use and stated that he is an occasional drinker. ALLERGIES: No known drug allergies. CURRENT MEDICATIONS: Patient takes albuterol, Advair, prednisone 20 mg daily, alprazolam 0.5 mg, Sym bicort, Lasix 40 mg, DuoNeb treatments, iron pills, sildenafil citrate 100 mg, and tramadol 50 mg. PHYSICAL EXAMINATION: VITAL SIGNS: Blood1 pressure is 173/130, pulse of 115, respiratory rate of 28, temperature of 97.6, O2 saturation of 92 on 3 liters. GENERAL APPEARANCE: Patient is very cachectic, frail, appears nontoxic, able to speak in full senten michelle. The patient did have a BiPAP in place at this time, alert, oriented x3. HEENT: Normocephalic, atraumatic. Pupils are equally round and reactive to light. Extraocular move ments are intact. NECK: JVD is noted. Trachea is midline. LUNGS: There is bilateral wheezing that can be appreciated at the anterior lung quigley and at the po sterior lung quigley, there are bilateral wheezes at the lower lobes. CARDIOVASCULAR: Positive S1, S2. Regular rate and rhythm. No murmurs, no gallops, no rubs apprecia farshad. ABDOMEN: Soft, nontender, nondistended. No palpable masses noted. Positive bowel sounds in all adiel drants. EXTREMITIES: Upper extremity and lower extremities: 5/5 upper extremity strength, good pulses bilat erally. In lower extremities, no edema noted. 5/5 lower extremity strength with good pulses bilater ally. NEUROLOGIC: Cranial nerves II through XII grossly intact. No neurologic deficits noted. SKIN: Warm, dry, and intact. PSYCHIATRIC: Normal affect, alert, and oriented x3. EKG: Patient is in sinus tachycardia. ED COURSE: The patient was given azithromycin, Rocephin, magnesium was given, DuoNebs, 125 Solu-Medr ol. LABORATORY DATA: WBC 14.2, hemoglobin is 12.8, hematocrit is , platelet count of 260,000. ABG is pH 7.34, pCO2 of 69.7, pO2 is 263. Sodium 137, potassium is 4.9, chloride is 97, carbon dioxide o f 32, anion gap of 13, BUN is 12, creatinine is 0.85. CK-MB 7.7, troponin less than 0.010. IMAGING: Chest x-ray showed no acute process. ASSESSMENT AND PLAN: This is a 58-year-old male with extensive tobacco use being admitted for; 1. Chronic obstructive pulmonary disease exacerbation. Patient states that since he has not been us ing his oxygen now. He has been having severe shortness of breath with exertion and also with lying down. The patient has been given Solu-Medrol, oxygen is being given, patient has been placed on BiPA P. We will admit the patient to the IMCU. Pulmonology has been consulted. We will give patient Lev aquin for chronic obstructive pulmonary disease exacerbation. Patient received antibiotics in the ED already. We will continue the Levaquin. We will do DuoNeb treatments and we will transition the pa tient from BiPAP to nasal cannula and downgrade the patient in the a.m. We will also speak to melissa woodson regarding oxygen for this patient. A 2-minute walk without oxygen will be determinate factor to see where patient's oxygen saturation is, so the patient can be able to qualify for oxygen. 2. Leukocytosis, likely due to steroid use, patient's WBC count is 14.2. Patient is on steroids. A t this point, we will continue the patient on standing dose of steroids and will monitor the patient' s labs in the a.m. 3. Hypercapnic respiratory failure. The patient has been placed on BiPAP as has now been admitted t o the [facility]. We will monitor the patient closely. 4. History of hypertension. We will monitor the patient's blood pressure. We will give the patient blood pressure medication as needed. We will continue to monitor the patient closely. 5. Deep venous thrombosis and gastrointestinal prophylaxis.
[2018-03-03] MEDS: Nicotine 21 MG PATCH TD SCH (05:41)
--- NOTE | 2018-03-03 07:53 | PDOC.PN ---
- Subjective Encounter Start Date: 03/03/18 Encounter Start Time: 07:51 Mr. Arellano was seen today in follow-up of acute respiratory failure. He is now off BiPAP and says he feels better. He is less short of breath. He is complaining of pain in his neck, and says he has been having trouble getting his pain medications. He also says he was " kicked off Hospice, but doesn't know why, and they took all his supplies and oxygen away". - Objective Resuscitation Status: Resuscitation Status FULL:Full Resuscitation MAR Reviewed: Yes Vital Signs & Weight: Vital Signs (12 hours) Temp Pulse Resp BP Pulse Ox 03/03/18 07:23 98.5 F 121 H 22 H 101/76 100 03/03/18 04:19 98.2 F 89 12 99/74 100 03/03/18 02:10 67 03/03/18 01:28 97.4 F L 70 25 H 126/89 100 Weight Weight 105 lb 2.568 oz I&O: 03/02/18 03/03/18 03/04/18 06:59 06:59 06:59 Intake Total 171 Output Total 375 Balance 171 -375 Result Diagrams: 03/02/18 21:20 03/02/18 21:20 Phys Exam - Physical Examination HEENT: PERRLA, sclera anicteric Respiratory: no rales, no rhonchi, wheezing present + mild expiratory wheeze, and decreased air movement Cardiovascular: RRR, no significant murmur, no rub Gastrointestinal: soft, non-tender, no distention, positive bowel sounds Musculoskeletal: no edema, pulses present Psychiatric: normal affect, A&O x 3 Dx/Plan (1) COPD with acute exacerbation Code(s): J44.1 - CHRONIC OBSTRUCTIVE PULMONARY DISEASE W (ACUTE) EXACERBATION Status: Acute (2) Acute on chronic respiratory failure with hypoxia and hypercapnia Code(s): J96.21 - ACUTE AND CHRONIC RESPIRATORY FAILURE WITH HYPOXIA; J96.22 - ACUTE AND CHRONIC RESPIRATORY FAILURE WITH HYPERCAPNIA Status: Acute (3) Chronic systolic (congestive) heart failure Code(s): I50.22 - CHRONIC SYSTOLIC (CONGESTIVE) HEART FAILURE Status: Chronic (4) Hypertension Code(s): I10 - ESSENTIAL (PRIMARY) HYPERTENSION Status: Chronic (5) Protein-calorie malnutrition, moderate Code(s): E44.0 - MODERATE PROTEIN-CALORIE MALNUTRITION Status: Chronic - Plan * Acute respiratory failure due to COPD- improved with Antibiotics, Duonebs, and steroids. Will continue, and Await recommendations from PCCM. Will also consult Case Management to help with outpatient supplies, such as home oxygen * Chronic systolic heart failure- compensated- Chest X-ray is clear * HTN- blood pressure is controlled * Continue DVT and GI prophylaxis.
[2018-03-03] MEDS: ALPRAZolam 0.5 MG TAB PO PRN (09:54)
[2018-03-03] MEDS: traMADol HCl 50 MG TAB PO PRN ×2 (09:54→21:14)
[2018-03-03] MEDS: Multivitamin W/ Minerals 1 TAB PO SCH (09:54)
[2018-03-03] MEDS: Furosemide 40 MG TAB PO SCH (09:54)
[2018-03-03] MEDS: Enoxaparin Sodium 40 MG/0.4 ML SYRINGE SC SCH (09:55)
[2018-03-03 12:27] LABS: CO2 Tension (PvCO2) 59.7 mmHg (41.0-51.0); pH (Venous) 7.325 (7.35-7.45)
[2018-03-03 12:28] LABS: Base Excess-Venous 3.3 mmol/L (0 (+/- 2.5)); Bicarbonate (HCO3v) 31.1 mmol/L (1.0-85.0); Calcium, Ionized 1.02 mmol/L (1.12-1.32); Hemoglobin - Calc 14.2 g/dL (12.0-18.0); O2 Tension (PvO2) 40.1 mmHg (35.0-45.0); Potassium 4.3 mmol/L (3.4-4.7); T. Carbon Dioxide 32.9 mmol/L (1.0-85.0); vO2 Saturation-calc 69.4 % (94-98)
[2018-03-03 12:30] LABS: Base Excess-Venous 8.2 mmol/L (0 (+/- 2.5)); Bicarbonate (HCO3v) 38.4 mmol/L (1.0-85.0); CO2 Tension (PvCO2) 82.2 mmHg (41.0-51.0); Hemoglobin - Calc 14.2 g/dL (12.0-18.0); O2 Tension (PvO2) 35.7 mmHg (35.0-45.0); pH (Venous) 7.278 (7.35-7.45); vO2 Saturation-calc 57.2 % (94-98)
[2018-03-03 12:31] LABS: Calcium, Ionized 1.16 mmol/L (1.12-1.32); Potassium 7.1 mmol/L (3.4-4.7); T. Carbon Dioxide 40.9 mmol/L (1.0-85.0)
--- NOTE | 2018-03-03 17:05 | PRG ---
DATE OF SERVICE: 03/03/2018. PULMONARY CONSULT SUBJECTIVE: Mr. Arellano is a 58-year-old male with significant chronic obstructive pulmonary disease. He was apparently admitted from the emergency room with complaints of shortness of breath. He was on BiPAP when I saw him during the lunch hour. He was talking in complete sentences. He was seen by me as I recall frequently wondering if he needed oxygen. He did not meet criteria for oxygen in the office. I tried to explain to him that oxygen was not treating his COPD, but he really does not understand the concepts I was trying to explain to him. All he wanted to talk about today was getting oxygen for the house. PAST MEDICAL HISTORY: 1. Remarkable for hypertension, COPD, chronic pain, history of heavy tobacco use, but none for the last 2 years. 2. History of heavy alcohol use, reportedly still drinking. 3. History of bipolar disorder. 4. History of an incision and drainage of his right forearm in September of this year for an abscess. 5. History of an echocardiogram last year that showed an ejection fraction of 40-45%. FAMILY HISTORY: Negative for lung disease in early age. PHYSICAL EXAMINATION: VITAL SIGNS: Heart rate is 119, blood pressure is 120/71. His temperature is 99.4, respiratory rate is in the 20s, oximetry is 100% on 2 liters. HEENT: Pupils are equal. Sclerae is anicteric. He is very cachectic. NECK: Supple. LUNGS: Remarkable for distant breath sounds. HEART: Regular rhythm. ABDOMEN: Soft and nontender. EXTREMITIES: No clubbing, cyanosis, or edema. LABORATORY DATA: White count 14.2, hemoglobin 12.8, platelets 260. Sodium 135 , potassium 4.3, chloride 99. Last night, his bicarbonate was 32, potassium was 4.9. There was a point of care venous potassium of 7.1, but that cannot be correct. IMPRESSION: Chronic obstructive pulmonary disease exacerbation. He has no infiltrate on his chest radiograph, he is clinically improved. He was taken off BiPAP, placed on cannula. He needs to continue with nebulized treatments and steroids, does not need IV antibiotics and steroid dose will be decreased. I will be happy to follow with the other physicians caring for him. This is a 50-minute consult, greater than 50% of the time was spent on the unit coordinating care. JUDITH
[2018-03-04] MEDS: traMADol HCl 50 MG TAB PO PRN ×2 (04:19→23:27)
[2018-03-04] MEDS: Nicotine 21 MG PATCH TD SCH (04:25)
[2018-03-04 04:26] LABS: ALT (SGPT) 19 U/L (8-55); AST (SGOT) 18 U/L (5-34); Albumin 3.8 g/dL (3.5-5.0); Alkaline Phosphatase 49 U/L (40-150); Anion Gap 9 mmol/L (10-20); BUN (Urea Nitrogen) 24 mg/dL (8.4-25.7); Bilirubin, Total 0.2 mg/dL (0.2-1.2); Calc. Creatinine Clearance 72 mL/min (70-130); Calcium 9.3 mg/dL (7.8-10.44); Carbon Dioxide 35 mmol/L (22-29); Chloride 93 mmol/L (98-107); Estimated GFR-MDRD Greater than 90; Globulin 2.1 g/dL (2.4-3.5); Glucose 113 mg/dL (70-105); Potassium 4.8 mmol/L (3.5-5.1); Protein, Total 5.9 g/dL (6.0-8.3); Sodium 132 mmol/L (136-145)
--- NOTE | 2018-03-04 08:50 | PDOC.PN ---
- Subjective Encounter Start Date: 03/04/18 Encounter Start Time: 08:48 Mr. Arellano was seen today in follow-up of COPD exacerbation. He says he is feeling much better. He is sitting at the side of the bed. He has less cough. - Objective Resuscitation Status: Resuscitation Status FULL:Full Resuscitation MAR Reviewed: Yes Vital Signs & Weight: Vital Signs (12 hours) Temp Pulse Resp BP Pulse Ox 03/04/18 07:36 100 03/04/18 07:24 100 03/04/18 07:22 98.4 F 89 16 125/77 100 03/04/18 04:14 98.3 F 99 20 127/82 100 03/03/18 23:25 99.2 F 92 16 114/76 100 Weight Admit Weight 105 lb 2.568 oz Weight 104 lb 15.04 oz I&O: 03/03/18 03/04/18 03/05/18 06:59 06:59 06:59 Intake Total 171 1576 Output Total 1780 Balance 171 -204 Result Diagrams: 03/02/18 21:20 03/04/18 03:44 Additional Labs: Accuchecks 03/03/18 16:46 POC Glucose 141 H Phys Exam - Physical Examination HEENT: PERRLA Respiratory: no rhonchi, wheezing present + faint wheeze, decreased air movement Cardiovascular: RRR, no significant murmur, no rub no gallop Gastrointestinal: soft, non-tender, no distention, positive bowel sounds Musculoskeletal: no edema Dx/Plan (1) COPD with acute exacerbation Code(s): J44.1 - CHRONIC OBSTRUCTIVE PULMONARY DISEASE W (ACUTE) EXACERBATION Status: Acute (2) Acute on chronic respiratory failure with hypoxia and hypercapnia Code(s): J96.21 - ACUTE AND CHRONIC RESPIRATORY FAILURE WITH HYPOXIA; J96.22 - ACUTE AND CHRONIC RESPIRATORY FAILURE WITH HYPERCAPNIA Status: Acute (3) Chronic systolic (congestive) heart failure Code(s): I50.22 - CHRONIC SYSTOLIC (CONGESTIVE) HEART FAILURE Status: Chronic (4) Hypertension Code(s): I10 - ESSENTIAL (PRIMARY) HYPERTENSION Status: Chronic (5) Protein-calorie malnutrition, moderate Code(s): E44.0 - MODERATE PROTEIN-CALORIE MALNUTRITION Status: Chronic - Plan * Acute on chronic respiratory failure- continue Steroids, and duonebs, antibiotics have been changed to oral Levaquin * Will check a room air saturation, and see if he qualifies for home oxygen * I suspect he can be moved out of the [facility]. * HTN- blood pressure is controlled * Acute on chronic systolic heart failure- compensated
[2018-03-04] MEDS: Furosemide 40 MG TAB PO SCH (09:14)
[2018-03-04] MEDS: Enoxaparin Sodium 40 MG/0.4 ML SYRINGE SC SCH (09:14)
[2018-03-04] MEDS: Multivitamin W/ Minerals 1 TAB PO SCH (09:14)
[2018-03-04] MEDS: ALPRAZolam 0.5 MG TAB PO PRN (09:14)
--- NOTE | 2018-03-04 15:54 | PRG ---
DATE OF SERVICE: 03/04/2018 SUBJECTIVE: Mr. Arellano had been smoking for 2 years, admitted to me today that he had bought a pack of cigarettes and smoked just over a pack and then put him down. He says he is feeling better. OBJECTIVE: VITAL SIGNS: He is afebrile, heart rate 95, respiratory rate 19, oximetry is 94% on room air, blood pressure 129/79. LUNGS: Distant and clear. CARDIOVASCULAR: Regular rhythm. ABDOMEN: Soft. IMPRESSION: Chronic obstructive pulmonary disease exacerbation. He can be moved to a non-monitored bed. He wants to have oxygen at the house, but he did qualify for oxygen therapy based on his resting room air sat. I have explained this to him in the office as katy cornejo. I will continue to follow.
[2018-03-05] MEDS: Nicotine 21 MG PATCH TD SCH (06:46)
[2018-03-05 07:28] VITALS: BP 138/92; TEMP 98.1
[2018-03-05] MEDS ORDERED: predniSONE 20 MG TAB PO SCH (08:00)
[2018-03-05] MEDS: Furosemide 40 MG TAB PO SCH (08:27)
[2018-03-05] MEDS: Multivitamin W/ Minerals 1 TAB PO SCH (08:27)
[2018-03-05] MEDS: Enoxaparin Sodium 40 MG/0.4 ML SYRINGE SC SCH (08:28)
--- NOTE | 2018-03-05 09:11 | PDOC.PN ---
- Subjective Encounter Start Date: 03/05/18 Encounter Start Time: 09:10 Mr. Arellano was seen today in follow-up of COPD exacerbation. He says he is doing fine today. He slept through the night without difficulty. - Objective Resuscitation Status: Resuscitation Status FULL:Full Resuscitation MAR Reviewed: Yes Vital Signs & Weight: Vital Signs (12 hours) Temp Pulse Resp BP Pulse Ox 03/05/18 07:47 99 03/05/18 07:28 98.1 F 76 12 138/92 H 99 03/05/18 07:23 98 03/05/18 07:20 77 16 98 03/05/18 04:00 98.3 F 75 18 130/83 100 03/04/18 23:36 98.6 F 85 16 109/79 98 Weight Admit Weight 105 lb 2.568 oz Weight 105 lb 6.095 oz I&O: 03/04/18 03/05/18 03/06/18 06:59 06:59 06:59 Intake Total 1576 810 Output Total 1780 1430 Balance -204 -620 Result Diagrams: 03/02/18 21:20 03/04/18 03:44 Phys Exam - Physical Examination HEENT: PERRLA Respiratory: wheezing present + scattered wheeze, but mild, no rales good air movement Cardiovascular: RRR, no significant murmur, no rub no gallop, Gastrointestinal: soft, non-tender, no distention, positive bowel sounds Musculoskeletal: no edema Dx/Plan (1) COPD with acute exacerbation Code(s): J44.1 - CHRONIC OBSTRUCTIVE PULMONARY DISEASE W (ACUTE) EXACERBATION Status: Acute (2) Acute on chronic respiratory failure with hypoxia and hypercapnia Code(s): J96.21 - ACUTE AND CHRONIC RESPIRATORY FAILURE WITH HYPOXIA; J96.22 - ACUTE AND CHRONIC RESPIRATORY FAILURE WITH HYPERCAPNIA Status: Acute (3) Chronic systolic (congestive) heart failure Code(s): I50.22 - CHRONIC SYSTOLIC (CONGESTIVE) HEART FAILURE Status: Chronic (4) Hypertension Code(s): I10 - ESSENTIAL (PRIMARY) HYPERTENSION Status: Chronic (5) Protein-calorie malnutrition, moderate Code(s): E44.0 - MODERATE PROTEIN-CALORIE MALNUTRITION Status: Chronic - Plan * COPD exacerbation- improved * He is now on oral medications, and he did not qualify for home oxygen * He is stable for discharge home.
--- NOTE | 2018-03-05 12:54 | DIS ---
DATE OF ADMISSION: 03/02/2018 DATE OF DISCHARGE: 03/05/2018 DISCHARGE DISPOSITION: Home. PRIMARY DISCHARGE DIAGNOSES: 1. Chronic obstructive pulmonary disease exacerbation. 2. Acute on chronic respiratory failure with hypoxemia and hypercapnia. 3. Chronic systolic heart failure. 4. Hypertension. 5. Protein calorie malnutrition. DISCHARGE MEDICATIONS: Levaquin 500 mg daily, tramadol 50 mg q.4 hours as needed, Viagra 100 mg joel y, prednisone 20 mg daily, iron sulfate 1 capsule daily, DuoNebs q.i.d. as needed, Lasix 40 mg daily, Advair Diskus 100/50 twice a day, alprazolam 0.5 mg twice daily, ProAir inhaler 2 puffs q.i.d. CODE STATUS: Full code. ALLERGIES: No known drug allergies. HOSPITAL COURSE: Mr. Arellano is a 58-year-old gentleman who presented to the emergency room complain ing of severe shortness of breath, no other significant symptoms. He does have a history of severe C OPD. He was admitted initially on BiPAP and then was able to be transitioned off. He was started on IV antibiotics, IV steroids and DuoNebs, as well as a long-acting beta agonist. He improved dramati pernell overnight and was monitored the next day. Medications were tapered with regards to the steroid s, antibiotics were changed to oral. He was evaluated for home oxygen; however, his O2 saturations s tayed in the mid to high 90s off of oxygen and therefore he does not qualify and he will be discharge d home today and to follow up with his primary care physician in 1-2 weeks.
== END 2018-03-05 10:32 | disposition home or self-care (01) | DRG 189 ==
LOC: ERS 21:09 → IMCU/EMU 22:23
PROVIDERS: ADMIT Internal Medicine; ATTEND Internal Medicine
PROC: 5A09357 Assistance with Respiratory Ventilation, Less than 24 Consecutive Hours, Continuous Positive Airway Pressure (ICD-10-PCS; principal; 2018-03-02)
DX: J96.22 Acute and chronic respiratory failure with hypercapnia (principal); J44.1 Chronic obstructive pulmonary disease with (acute) exacerbation; I50.22 Chronic systolic (congestive) heart failure; E44.0 Moderate protein-calorie malnutrition; Z68.1 Body mass index [BMI] 19.9 or less, adult; J96.21 Acute and chronic respiratory failure with hypoxia; I11.0 Hypertensive heart disease with heart failure; F17.210 Nicotine dependence, cigarettes, uncomplicated; G43.909 Migraine, unspecified, not intractable, without status migrainosus; M54.9 Dorsalgia, unspecified; G89.29 Other chronic pain; F41.9 Anxiety disorder, unspecified; F31.9 Bipolar disorder, unspecified; D72.829 Elevated white blood cell count, unspecified
CPT/HCPCS: 36415; 36416; 71045; 80053; 82330; 82435; 82553; 82803; 82805; 84132; 84295; 84484; 85014; 85025; 90471; 90686; 93005; 94640; 94660; 94760; G0008; J0696; J1650; J1956; J2920; J2930; J7506; J7620

== ENCOUNTER 2018-04-06 12:40 | Outpatient (CLI) | payer OTHER ==
--- NOTE | 2018-04-06 14:38 | RAD ---
CHEST 2 VIEWS: HISTORY: Dyspnea. COMPARISON: Radiograph of 01/13/2018. FINDINGS: Lungs are hyperinflated. No focal confluent airspace consolidation, pneumothorax, or effusion. Card iac silhouette and the mediastinal contours are similar. IMPRESSION: Lung hyperinflation suggesting obstructive pulmonary disease. POS: [facility]
== END 2018-04-06 12:41 | disposition home or self-care (01) ==
LOC: RAD 12:40
PROVIDERS: ATTEND Internal Medicine Critical Care Medicine
DX: R06.00 Dyspnea, unspecified (principal)
CPT/HCPCS: 71046

== ENCOUNTER 2018-05-07 16:26 | Inpatient (IN) | payer OTHER ==
[2018-05-07] MEDS ORDERED: Magnesium 2 GM/50 ML BAG (IN WATER) ONE (16:44)
[2018-05-07] MEDS ORDERED: Dexamethasone 10 MG/ML VIAL ONE (16:44)
[2018-05-07] MEDS ORDERED: Albuterol Sulfate 2.5 mg/3 ml Neb ONE (16:48)
[2018-05-07 16:56] LABS: #Basophils 0.1 thou/uL (0.0-0.2); #Eosinphils 0.6 thou/uL (0.0-0.7); #Lymphocytes 1.2 thou/uL (1.20-3.40); %Basophils 0.6 % (0.0-1.0); %Eosinophils 5.8 % (0.0-10.0); %Lymphocytes 12.6 % (21.0-51.0); %Monocytes 9.9 % (0.0-10.0); %Neutrophils 71.1 % (42.0-75.0); Hemoglobin 12.8 g/dL (14.0-18.0); Mean Corpuscular HGB CONC 31.6 g/dL (32.0-36.0); Mean Corpuscular Hemoglobin 30.2 pg (27.0-31.0); Mean Corpuscular Volume 95.5 fL (78.0-98.0); Mean Platelet Volume 8.6 fL (7.4-10.4); Platelet Count 243 thou/uL (130-400); RBC Distribution Width 18.3 % (11.5-14.5); Red Blood Cell (RBC) Count 4.23 mill/uL (4.70-6.10); White Blood Cell (WBC) Count 9.9 thou/uL (4.8-10.8)
[2018-05-07 17:01] LABS: Actual Bicarbonate (HCO3a) 27.9 mEq/L (22-28); Base Excess (BEa) 2.8 mEq/L (-2.0 to +3.0); CO2 Tension 45.3 mmHg (35.0-45.0); Calcium, Ionized 1.15 mmol/L (1.12-1.30); Carboxyhemoglobin (COHb) 0.4 gm% (0.0-3.0); Hemoglobin (Hb) 12.5 g/dL (14.0-18.0); O2 Tension (PaO2) 80.4 mmHg (> 80.0); Potassium - ABG Lab 3.66 mmol/L (3.70-5.30); pH, Arterial 7.41 (7.35-7.45)
[2018-05-07 17:02] LABS: ALV-art Gradient 12.705 (0-20); Analyzer IN Cardio ER; Puncture Site RRA
[2018-05-07 17:18] LABS: ALT (SGPT) 31 U/L (8-55); AST (SGOT) 33 U/L (5-34); Albumin 4.5 g/dL (3.5-5.0); Alkaline Phosphatase 69 U/L (40-150); Anion Gap 13 mmol/L (10-20); BUN (Urea Nitrogen) 11 mg/dL (8.4-25.7); Bilirubin, Total 0.2 mg/dL (0.2-1.2); CK (CPK) 199 U/L (30-200); Calc. Creatinine Clearance 0 mL/min (70-130); Calcium 9.6 mg/dL (7.8-10.44); Carbon Dioxide 29 mmol/L (22-29); Chloride 91 mmol/L (98-107); Estimated GFR-MDRD Greater than 90; Globulin 2.6 g/dL (2.4-3.5); Glucose 97 mg/dL (70-105); Lipase 33 U/L (8-78); Protein, Total 7.1 g/dL (6.0-8.3); Sodium 129 mmol/L (136-145)
--- NOTE | 2018-05-07 17:18 | RAD ---
CHEST 1 VIEW: Date: 05/07/18 HISTORY: 58-year-old male with history of dyspnea and shortness of breath. Productive cough. FINDINGS: Hyperinflation and chronic lung changes, stable. Heart size is within normal limits. No confluent pne umonia, overt edema, or pleural effusion. IMPRESSION: Stable hyperinflation and chronic lung change. No pneumonia or other acute process. POS: [facility]
[2018-05-07 17:50] LABS: CKMB 14.3 ng/mL (0-6.6)
[2018-05-07 17:58] LABS: Bilirubin Negative (Negative); Blood, Urine Negative (Negative); Clarity CLEAR (Clear); Glucose, Urine (Dipstick) Negative (Negative); Leukocyte Negative (Negative); Nitrite Negative (Negative); Protein, Urine (Dipstick) Negative (Neg-Trace); Specific Gravity, Urine 1.007 (1.002-1.036); Urobilinogen 0.2 mg/dL (0.2-1.0)
[2018-05-07 19:55] VITALS: BMI 14.6
[2018-05-07] MEDS ORDERED: Ondansetron ODT 4 MG TAB SL PRN (20:01)
[2018-05-07] MEDS ORDERED: Sodium Chloride 0.9% 1,000 ML IV SCH (20:01)
[2018-05-07] MEDS ORDERED: Ondansetron PF 4 MG/2 ML Vial IVP PRN (20:01)
[2018-05-07 21:00] LABS: Lactic Acid 2.1 mmol/L (0.5-2.2)
[2018-05-07] MEDS ORDERED: Dexamethasone 4 mg/ml Vial SLOW IVP SCH (21:00)
[2018-05-07] MEDS ORDERED: Bisacodyl 5 MG TAB PO PRN (21:31)
[2018-05-07] MEDS ORDERED: Senokot S 8.6-50 MG TAB PO PRN (21:31)
[2018-05-07] MEDS ORDERED: Acetaminophen 325 MG TAB PO PRN (21:46)
[2018-05-07] MEDS: Albuterol Sulfate 2.5 mg/3 ml Neb NEB SCH (22:30)
[2018-05-07] MEDS: Ipratropium Bromide 2.5 ml Neb NEB SCH (22:32)
[2018-05-08] MEDS: HYDROcodone/Acetaminophen 5/325 mg Tablet PO PRN ×4 (00:38→23:39)
[2018-05-08] MEDS: Albuterol Sulfate 2.5 mg/3 ml Neb NEB SCH ×2 (01:56→09:06)
[2018-05-08] MEDS: Ipratropium Bromide 2.5 ml Neb NEB SCH ×2 (01:57→09:06)
[2018-05-08 04:56] LABS: #Lymphocytes 0.7 thou/uL (1.20-3.40); #Monocytes 0.1 thou/uL (0.11-0.59); #Neutrophils 4.8 thou/uL (1.40-6.50); %Basophils 0.3 % (0.0-1.0); %Eosinophils 0.5 % (0.0-10.0); %Lymphocytes 12.6 % (21.0-51.0); %Monocytes 2.5 % (0.0-10.0); %Neutrophils 84.1 % (42.0-75.0); Hemoglobin 11.1 g/dL (14.0-18.0); Mean Corpuscular HGB CONC 33.1 g/dL (32.0-36.0); Mean Corpuscular Hemoglobin 31.6 pg (27.0-31.0); Mean Corpuscular Volume 95.5 fL (78.0-98.0); Mean Platelet Volume 8.5 fL (7.4-10.4); Platelet Count 224 thou/uL (130-400); RBC Distribution Width 18.1 % (11.5-14.5); Red Blood Cell (RBC) Count 3.51 mill/uL (4.70-6.10); White Blood Cell (WBC) Count 5.7 thou/uL (4.8-10.8)
[2018-05-08 05:08] LABS: Anion Gap 10 mmol/L (10-20); BUN (Urea Nitrogen) 10 mg/dL (8.4-25.7); Calc. Creatinine Clearance 71 mL/min (70-130); Calcium 8.7 mg/dL (7.8-10.44); Carbon Dioxide 26 mmol/L (22-29); Chloride 97 mmol/L (98-107); Estimated GFR-MDRD Greater than 90; Glucose 177 mg/dL (70-105); Potassium 4.4 mmol/L (3.5-5.1); Sodium 129 mmol/L (136-145)
[2018-05-08] MEDS: Enoxaparin Sodium 40 MG/0.4 ML SYRINGE SC SCH (08:05)
--- NOTE | 2018-05-08 08:33 | HP ---
CHIEF COMPLAINT: Shortness of breath. HISTORY OF PRESENT ILLNESS: This is a 58-year-old male with past medical history of congestive heart failure, COPD, hypertension, migraine headaches, chronic back pain, presenting with shortness of breath and productive sputum. Per the patient, he has been having shortness of breath, which has worsened in the past couple of days. The patient stated that he normally typically has shortness of breath and now the patient stated that he has had productive cough with severe shortness of breath, which prompted him to come to the hospital. The patient states that he recently saw a [employer] radio operator and had a stress test done and it came back normal. The patient also states that he stopped smoking 2 months ago because he is young and he does not want to . The patient denies any chest discomfort, nausea, vomiting, palpitations, abdominal pain, dysuria, hematochezia, melena, or hematuria. Of note, the patient was recently seen in the hospital on 03/03/2018 and then was discharged on 03/05/2018 for COPD exacerbation. The patient stated that he has not been intubated before. He states that he does not have home O2. The patient had been on BiPAP in the past for respiratory failure. REVIEW OF SYSTEMS: Positive for shortness of breath on exertion, productive cough. Otherwise, as documented in the HPI, all other systems are reviewed and are negative. PAST MEDICAL HISTORY: CHF, COPD, hypertension, hyperlipidemia, and chronic back pain. FAMILY HISTORY: Reviewed and noncontributory to this visit. PAST SURGICAL HISTORY: No surgical history. PSYCHIATRIC HISTORY: Anxiety, bipolar disorder. SOCIAL HISTORY: The patient drinks socially. Uses tobacco. The patient states that he quit 2 years ago, but picked that up again and recently he quit 2 months ago. The patient states that he uses a little bit of marijuana. The patient drinks occasionally. The patient states that he used to smoke one pack per day. ALLERGIES: NO KNOWN DRUG ALLERGIES. CURRENT MEDICATIONS: The patient takes prednisone 20 mg. PHYSICAL EXAMINATION: VITAL SIGNS: Blood pressure 146/98, pulse of 102, respiratory rate of 26, temperature of 98.9, and O2 saturation of 100%. GENERAL: The patient is tachycardic. HEENT: Normocephalic, atraumatic. Pupils are equally round and reactive to light. Extraocular movements are intact. No scleral icterus. No conjunctival pallor. NECK: Trachea is midline. No JVD is noted. LUNGS: The patient had bilateral anterior lung quigley wheezes and bilateral lower lobes crackles. CARDIAC: The patient is tachycardic. No murmurs appreciated. ABDOMEN: No peritoneal signs. Soft, nontender, and nondistended. EXTREMITIES: The patient has 5/5 upper extremity strength and 5/5 lower extremity strength. The patient has good pulses bilaterally of the upper and lower extremities. NEUROLOGIC: Cranial nerves II through XII grossly intact. No neurologic deficits noted. SKIN: Warm, dry, and intact. RADIOLOGY DATA: EKG that was done showed sinus tachycardia with heart rate of 116 with some PVCs noted. LABORATORY DATA: WBC is 9.9, hemoglobin is 12.8, hematocrit is 40.4, and platelet count is 243. ABGs, pH is 7.4, pCO2 of 45, O2 is 80. Sodium is 129, chloride is 91, carbon dioxide of 29, anion gap of 13, and BUN is 11. Troponin is less than 0.010. Urinalysis is negative. IMAGING DATA: Chest x-ray shows stable hyperinflation and chronic lung change. No pneumonia or any other acute process. ASSESSMENT AND PLAN: This is a 58-year-old male being admitted for, 1. Shortness of breath secondary to chronic obstructive pulmonary disease exacerbation. At this point, we are going to continue the patient on steroids and DuoNeb treatments. We are going to continue the patient on good oxygenation and we will continue to monitor the patient closely. We will also continue the patient on Levaquin. 2. Hypercapnic respiratory failure. The patient is currently stable at this time. We will continue the patient on oxygenation. We will continue the patient on DuoNeb treatments. We will monitor the patient closely. 3. History of hypertension. Currently, blood pressure is controlled. We will continue the patient on blood pressure medications as needed and we will monitor the patient's blood pressure closely. 4. History of congestive heart failure, currently stable at this time. 5. Deep vein thrombosis and gastrointestinal prophylaxis. Job ID: [id number]
--- NOTE | 2018-05-08 14:42 | PDOC.PN ---
- Subjective Encounter Start Date: 05/08/18 Encounter Start Time: 10:00 Pt seen for followup re:acute on chronic hypercapnic respiratory failure. Denies chest pain. Wheezing+. Dyspnea is better. - Objective Resuscitation Status - Order Detail: 05/07/18 21:31 Resuscitation Status Routine Resuscitation Status: FULL: Full Resuscitation MAR Reviewed: Yes Vital Signs & Weight: Vital Signs (12 hours) Temp Pulse Resp BP Pulse Ox 05/08/18 13:54 106 H 96 05/08/18 11:28 97.7 F 106 H 16 149/88 H 97 05/08/18 10:28 85 18 95 05/08/18 08:00 95 05/08/18 07:42 97.9 F 88 18 145/86 H 95 05/08/18 04:00 98.3 F 101 H 18 123/81 94 L Weight Admit Weight 105 lb 4 oz Weight 105 lb 4 oz I&O: 05/07/18 05/08/18 05/09/18 06:59 06:59 06:59 Intake Total 1000 Balance 1000 Result Diagrams: 05/08/18 03:59 05/08/18 03:59 Additional Labs: Labs reviewed by me Phys Exam - Physical Examination Constitutional: NAD HEENT: moist MMs, sclera anicteric, oral pharynx no lesions, 2+ tonsils Neck: no nodes, no JVD, supple, full ROM Respiratory: no rales, no rhonchi, wheezing present Cardiovascular: RRR, no rub S1, s2 Gastrointestinal: soft, non-tender, no distention, positive bowel sounds Neurological: moves all 4 limbs Psychiatric: normal affect, A&O x 3 Dx/Plan (1) Acute on chronic respiratory failure with hypercapnia Code(s): J96.22 - ACUTE AND CHRONIC RESPIRATORY FAILURE WITH HYPERCAPNIA Status: Acute Comment: secondary to COPD exacerbation (2) COPD with acute exacerbation Code(s): J44.1 - CHRONIC OBSTRUCTIVE PULMONARY DISEASE W (ACUTE) EXACERBATION Status: Acute Comment: continue oxygen, steroids, antibiotics and bronchodilators (3) Anxiety and depression Code(s): F41.9 - ANXIETY DISORDER, UNSPECIFIED; F32.9 - MAJOR DEPRESSIVE DISORDER, SINGLE EPISODE, UNSPECIFIED Status: Chronic Comment: stable (4) Bipolar 1 disorder Code(s): F31.9 - BIPOLAR DISORDER, UNSPECIFIED Status: Chronic Comment: stable (5) Hypertension Code(s): I10 - ESSENTIAL (PRIMARY) HYPERTENSION Status: Chronic Comment: monitor vital signs, titrate antihypertensives as needed (6) Protein-calorie malnutrition, moderate Code(s): E44.0 - MODERATE PROTEIN-CALORIE MALNUTRITION Status: Chronic Comment: appreciate dietitian input - Plan * . Review of Systems - Review of Systems Constitutional: negative: fever, chills, sweats, weakness, malaise Respiratory: Shortness of Breath, SOB with Excertion, Wheezing. negative: Cough , Pleuritic Pain Cardiovascular: negative: chest pain, palpitations, orthopnea, paroxysmal nocturnal dyspnea, edema, light headedness Gastrointestinal: negative: Nausea, Vomiting, Abdominal Pain, Diarrhea, Constipation, Melena, Hematochezia Genitourinary: negative: Dysuria, Frequency, Incontinence, Hematuria, Retention Skin: negative: Rash, Lesions, Rogers, Bruising - Medications/Allergies Allergies/Adverse Reactions: Allergies Allergy/AdvReac Type Severity Reaction Status Date / Time No Known Drug Allergies Allergy Verified 05/07/18 20:06 Medications: Current Medications Acetaminophen (Tylenol) 650 mg PO Q4H PRN PRN Reason: Headache/Fever/Mild Pain (1-3) Hydrocodone Bitart/Acetaminophen ([place] 5/325) 1 tab PO Q6H PRN PRN Reason: Moderate to Severe Pain (6-10) Last Admin: 05/08/18 08:05 Dose: 1 tab Albuterol/Ipratropium (Duoneb) 3 ml NEB [id number] [facility] Last Admin: 05/08/18 13:54 Dose: 3 ml Bisacodyl (Dulcolax) 10 mg PO DAILYPRN PRN PRN Reason: Constipation Enoxaparin Sodium (Lovenox) 40 mg SC 0900 [facility] Last Admin: 05/08/18 08:05 Dose: 40 mg Levofloxacin 750 mg/ Device 150 mls @ 100 mls/hr IVPB Q24HR [facility] Methylprednisolone Sodium Succinate (Solu-Medrol) 40 mg IVP Q6HR [facility] Last Admin: 05/08/18 12:20 Dose: 40 mg Senna/Docusate Sodium (Senokot S) 2 tab PO BID PRN PRN Reason: Constipation Sodium Chloride (Flush - Normal Saline) 10 ml IVF Q12HR [facility] Last Admin: 05/08/18 08:10 Dose: 10 ml Sodium Chloride (Flush - Normal Saline) 10 ml IVF PRN PRN PRN Reason: Saline Flush
[2018-05-09] MEDS: HYDROcodone/Acetaminophen 5/325 mg Tablet PO PRN (05:45)
[2018-05-09 07:28] VITALS: BP 120/80; TEMP 98.5
[2018-05-09] MEDS: Enoxaparin Sodium 40 MG/0.4 ML SYRINGE SC SCH (09:09)
[2018-05-09] MEDS ORDERED: traMADol HCl 50 MG TAB PO PRN (10:37)
--- NOTE | 2018-05-09 12:22 | DIS ---
DATE OF ADMISSION: 05/07/2018 DATE OF DISCHARGE: 05/09/2018 PRIMARY CARE DOCTOR: Cielo Rojo MD DISCHARGE DIAGNOSES: 1. Acute on chronic hypercapnic respiratory failure. 2. Chronic obstructive pulmonary disease exacerbation. 3. Hyponatremia. CONDITION OF THE PATIENT ON THE DAY OF DISCHARGE: Stable. I assessed Mr. Arellano on the day of discharge. He denies any chest pain. Shortness of breath is better. Vital signs are stable. S1 and S2 are heard, regular. Lungs are clear to auscultation bilaterally. DISCHARGE MEDICATIONS: 1. Symbicort 160/4.5 two puffs every 4 hours as needed. 2. ProAir HFA 2 puffs every 6 hours as needed. 3. Xanax 0.5 mg 2 times a day as needed. 4. Lasix 40 mg daily as needed. 5. [place] 10/325 mg tablet, one tablet 2 times a day. 6. Se-Jacobo Plus 1 tablet daily. 7. Viagra 100 mg daily as needed. 8. Levofloxacin 500 mg daily for 5 more days. 9. Medrol Dosepak as directed. 10. Tramadol 50 mg every 8 hours as needed. HOSPITAL COURSE: Mr. Arellano is a pleasant 58-year-old gentleman, who was admitted to [facility] on May 07, 2018, for hypercapnic respiratory failure. Please refer to Dr. Valencia's history and physical note dated May 08, 2018, for further details. He improved with oxygen, steroids, bronchodilators, and antibiotics. He is being discharged home in a stable condition. His sodium level was slightly decreased at 129 during this hospitalization. He is advised to follow up with his primary care provider and have his sodium level rechecked. Many thanks for allowing me to participate in your patient's care. Please feel free to contact me with any questions or concerns. DISCHARGE DESTINATION: Home. TOTAL AMOUNT OF TIME SPENT COORDINATING THIS DISCHARGE: 31 minutes. Job ID: [id number]
--- NOTE | 2018-05-09 13:17 | EKG ---
Test Reason : ERINDICATION Blood Pressure : / mmHG Vent. Rate : 116 BPM Atrial Rate : 116 BPM P-R Int : 148 ms QRS Dur : 074 ms QT Int : 322 ms P-R-T Axes : 069 041 083 degrees QTc Int : 447 ms Sinus tachycardia with Premature atrial complexes Low voltage QRS Borderline ECG Confirmed by SETH NERI, GEETHA ([id number]), photography editor NAKUL PAUL ([id number]) on 05/09/2018 1:17:09 PM Referred By: Frankie BAUGH Confirmed By:GEETHA ANN MD
== END 2018-05-09 14:09 | disposition home or self-care (01) | DRG 189 ==
LOC: ERS 16:26 → T4-B 19:37
PROVIDERS: ADMIT Family Medicine; ATTEND Family Medicine
DX: J96.22 Acute and chronic respiratory failure with hypercapnia (principal); J44.1 Chronic obstructive pulmonary disease with (acute) exacerbation; E87.1 Hypo-osmolality and hyponatremia; E44.0 Moderate protein-calorie malnutrition; Z68.1 Body mass index [BMI] 19.9 or less, adult; I50.22 Chronic systolic (congestive) heart failure; Z79.51 Long term (current) use of inhaled steroids; Z79.01 Long term (current) use of anticoagulants; F31.9 Bipolar disorder, unspecified; I11.0 Hypertensive heart disease with heart failure
CPT/HCPCS: 36415; 71045; 80048; 80053; 81003; 82550; 82553; 82805; 83605; 83690; 83880; 84484; 85025; 87040; 87804; 93005; 94640; 94644; 96361; 96365; 96366; 96375; J1100; J1650; J1956; J2920; J7611; J7620

== ENCOUNTER 2018-05-19 18:59 | Inpatient (IN) | payer OTHER ==
[2018-05-19 19:30] LABS: #Basophils 0.1 thou/uL (0.0-0.2); #Lymphocytes 1.3 thou/uL (1.20-3.40); #Monocytes 0.8 thou/uL (0.11-0.59); #Neutrophils 9.4 thou/uL (1.40-6.50); %Basophils 0.5 % (0.0-1.0); %Eosinophils 0.4 % (0.0-10.0); %Lymphocytes 11.6 % (21.0-51.0); %Monocytes 6.8 % (0.0-10.0); %Neutrophils 80.8 % (42.0-75.0); Hemoglobin 11.5 g/dL (14.0-18.0); Mean Corpuscular Hemoglobin 31.2 pg (27.0-31.0); Mean Corpuscular Volume 94.5 fL (78.0-98.0); Platelet Count 348 thou/uL (130-400); RBC Distribution Width 16.9 % (11.5-14.5); White Blood Cell (WBC) Count 11.6 thou/uL (4.8-10.8)
--- NOTE | 2018-05-19 19:44 | RAD ---
SINGLE VIEW CHEST: HISTORY: Difficulty breathing. COMPARISON: 05/07/2018 FINDINGS: A single view of the chest shows a normal sized cardiomediastinal silhouette. There is hyperexpansio n of the lungs, consistent with COPD. There is no evidence of consolidation, mass, or pleural effusi on. IMPRESSION: 1. No evidence of acute cardiopulmonary disease. 2. Chronic obstructive pulmonary disease. POS: [facility]
[2018-05-19 19:51] LABS: ALT (SGPT) 26 U/L (8-55); AST (SGOT) 29 U/L (5-34); Albumin 4.4 g/dL (3.5-5.0); Alkaline Phosphatase 62 U/L (40-150); Anion Gap 16 mmol/L (10-20); BUN (Urea Nitrogen) 12 mg/dL (8.4-25.7); Bilirubin, Total 0.2 mg/dL (0.2-1.2); CK (CPK) 133 U/L (30-200); Calc. Creatinine Clearance 0 mL/min (70-130); Calcium 9.2 mg/dL (7.8-10.44); Carbon Dioxide 25 mmol/L (22-29); Chloride 87 mmol/L (98-107); Estimated GFR-MDRD Greater than 90; Globulin 2.5 g/dL (2.4-3.5); Glucose 111 mg/dL (70-105); Potassium 4.4 mmol/L (3.5-5.1); Protein, Total 6.9 g/dL (6.0-8.3); Sodium 124 mmol/L (136-145)
[2018-05-19 20:46] LABS: Actual Bicarbonate (HCO3a) 24.8 mEq/L (22-28); Analyzer IN Cardio ER; Base Excess (BEa) -0.3 mEq/L (-2.0 to +3.0); CO2 Tension 42.2 mmHg (35.0-45.0); Calcium, Ionized 1.13 mmol/L (1.12-1.30); Carboxyhemoglobin (COHb) 0.3 gm% (0.0-3.0); Hemoglobin (Hb) 11.7 g/dL (14.0-18.0); O2 Tension (PaO2) 160.3 mmHg (> 80.0); pH, Arterial 7.39 (7.35-7.45)
[2018-05-19] MEDS ORDERED: Guaifenesin DM 100-10/5 ML UDCUP PO PRN ×2 (20:46→22:56)
[2018-05-19] MEDS ORDERED: Acetaminophen 650 MG Suppository PR PRN ×2 (20:46→22:56)
[2018-05-19] MEDS ORDERED: Zolpidem Tartrate 5 MG TAB PO PRN ×2 (20:46→22:57)
[2018-05-19] MEDS ORDERED: Acetaminophen 325 MG TAB PO PRN ×2 (20:46→22:53)
[2018-05-19] MEDS ORDERED: traMADol HCl 50 MG TAB PO PRN (20:51)
[2018-05-19] MEDS ORDERED: Non-Formulary Item 1 EACH (Budesonide-Formoterol [Symbicort 160-4.5] 2 PUFF) INH PRN ×2 (20:51→22:40)
[2018-05-19] MEDS ORDERED: Furosemide 40 MG TAB PO PRN ×2 (20:51→22:56)
[2018-05-19] MEDS ORDERED: ALPRAZolam 0.5 MG TAB PO PRN ×2 (20:51→22:56)
[2018-05-19] MEDS ORDERED: Magnesium 2 GM/50 ML BAG (IN WATER) ONE (20:55)
[2018-05-19] MEDS ORDERED: methylPREDNISolone Sod Succ/PF 125 MG/2 ML VIAL ONE (20:55)
[2018-05-19] MEDS ORDERED: LEVAQUIN IVPB PRN (22:40)
[2018-05-19] MEDS: traMADol HCl 50 MG TAB PO PRN (23:15)
--- NOTE | 2018-05-20 05:34 | HP ---
CHIEF COMPLAINT: Shortness of breath. HISTORY OF PRESENT ILLNESS: This is a 58-year-old male with past medical history of congestive heart failure, COPD, hypertension, migraine headaches, and chronic back pain, presenting with shortness of breath. Per patient, he was recently here and was treated for worsening shortness of breath; however, the patient stated that he was doing well but in the afternoon on the day of admission, he started having worsening shortness of breath once again. The patient stated that he was not able to catch his breath; therefore, he called EMS and he was brought to the hospital to be treated. The patient was recently in our hospital for similar episode on 05/07/2018 and during that time, the patient was admitted for shortness of breath secondary to chronic obstructive pulmonary disease exacerbation. The patient was treated with some steroids, DuoNebs, and was discharged two days later and the patient was also given some antibiotics. At this time, the patient states that his shortness of breath has improved some, and the patient denies chest pain, palpitation, abdominal pain, dysuria, hematuria, constipation, diarrhea, fever, chills, nausea, vomiting, or dizziness. REVIEW OF SYSTEMS: Positive for shortness of breath, otherwise as documented in the HPI. All other systems were reviewed and are negative. PAST MEDICAL HISTORY: CHF, COPD, hypertension, hyperlipidemia, and chronic back pain. FAMILY HISTORY: Reviewed and noncontributory to this visit. PAST SURGICAL HISTORY: No past surgical history. PSYCHIATRIC HISTORY: Anxiety, bipolar. SOCIAL HISTORY: The patient drinks alcohol occasionally. The patient uses tobacco. The patient has been trying to quit tobacco use. The patient uses a little bit of marijuana. ALLERGIES: NO KNOWN DRUG ALLERGIES. CURRENT MEDICATIONS: The patient takes, 1. Symbicort 160/4.5 two puffs every 4 hours as needed. 2. ProAir. 3. Xanax 0.5 mg b.i.d. 4. Lasix 40 mg daily. 5. [place] 10/325 mg tablets. 6. Se-Jacobo Plus daily. 7. Viagra 100 mg daily as needed. 8. Tramadol 50 mg every 8 hours as needed. PHYSICAL EXAMINATION: VITAL SIGNS: The patient's temperature is 98.4, pulse of 97, respiratory rate of 20, oxygen saturation of 98%, and blood pressure is 148/101. GENERAL: The patient is lying in bed, does not appear to be in any acute distress. The patient is speaking in full sentences. HEENT: Normocephalic, atraumatic. Pupils are equally round and reactive to light. Extraocular movements are intact. No scleral icterus. No conjunctival pallor. NECK: Trachea is midline. No JVD. LUNGS: Clear to auscultation bilaterally at the anterior lung quigley. No wheezes can be appreciated at this time. CARDIAC: The patient is tachycardic. No murmurs appreciated. ABDOMEN: Soft, nontender, and nondistended. No peritoneal signs. EXTREMITIES: The patient has 5/5 upper extremity strength. Good pulses bilaterally. 5/5 lower extremity strength. Good pulses bilaterally of the lower extremities. No edema noted. NEUROLOGIC: Cranial nerves 2 through 12 are grossly intact. No neurologic deficits noted. SKIN: Warm, dry, and intact. DIAGNOSTIC DATA: Chest x-ray; no evidence of acute cardiopulmonary process. Chronic obstructive pulmonary disease. LABORATORY DATA: WBC is 11.6, hemoglobin is 11.5, hematocrit is 34.9, and platelets 348. ABGs; the patient's pH is 7.39, pCO2 is 42, and PO2 is 160. Sodium is 124, potassium is 4.4, chloride is 87, carbon dioxide of 25, creatinine is 0.71, BUN is 12, glucose is 111, serum osmolality is 275, AST is 29, ALT is 26, and TSH is 1.6. Cortisol level is 2.3. BNP is 43. ASSESSMENT AND PLAN: This is a 58-year-old male being admitted for; 1. Shortness of breath secondary to chronic obstructive pulmonary disease exacerbation. At this point, the patient has been placed on BiPAP. We are going to continue the patient on BiPAP and we are going to give steroids. We will give DuoNeb treatments, and we will continue to monitor the patient. 2. Hypercapnic respiratory failure, currently stable. The patient was put on BiPAP and at this point, the patient is feeling much better. We will continue the patient on current treatments. 3. Hyponatremia. The patient's sodium is currently 124 from a baseline of 129. Etiology of hyponatremia is unknown at this time. We have ordered for serum osmolality and urine sodium. We will follow up on the results of these tests, and we will treat the patient accordingly. 4. Hypertension, currently uncontrolled. We will monitor the patient's blood pressure and treat the patient's blood pressure accordingly. 5. History of congestive heart failure, currently stable at this time. 6. Deep venous thrombosis/gastrointestinal prophylaxis. Job ID: [id number]
[2018-05-20] MEDS ORDERED: Multivitamin W/ Minerals 1 TAB PO SCH (09:00)
[2018-05-20] MEDS ORDERED: Enoxaparin Sodium 40 MG/0.4 ML SYRINGE SC SCH (09:00)
[2018-05-20] MEDS ORDERED: Ondansetron ODT 4 MG TAB PO PRN (09:42)
[2018-05-20] MEDS ORDERED: Senokot S 8.6-50 MG TAB PO PRN (09:42)
[2018-05-20] MEDS ORDERED: cloNIDine 0.1 MG TAB PO PRN (09:42)
[2018-05-20] MEDS ORDERED: Loratadine 10 MG TAB PO PRN (09:42)
[2018-05-20] MEDS ORDERED: Ondansetron PF 4 MG/2 ML Vial IVP PRN (09:42)
[2018-05-20] MEDS ORDERED: Calcium Carbonate 500 MG ChewTAB PO PRN (09:42)
[2018-05-20] MEDS ORDERED: Eucerin (Mineral Oil/Petrolatum,White) 30 gm Jar TOP PRN (09:42)
[2018-05-20] MEDS ORDERED: Artificial Tears 18 DROP/0.9 ML EA EYE PRN (09:42)
[2018-05-20] MEDS ORDERED: hydrALAZINE 20 MG/ML VIAL SLOW IVP PRN (09:42)
[2018-05-20] MEDS ORDERED: Sodium Chloride 0.65% Nasal 44 ML BOT EA NARE PRN (09:42)
[2018-05-20] MEDS ORDERED: Diabetic Tussin 200 MG/10 ML UDCUP PO PRN (09:42)
[2018-05-20] MEDS ORDERED: Loperamide HCl 2 MG CAP PO PRN (09:42)
[2018-05-20] MEDS ORDERED: Cepastat Lozenges 1 LOZ PO PRN (09:42)
[2018-05-20] MEDS ORDERED: Acetaminophen 500 MG TAB PO PRN (09:42)
--- NOTE | 2018-05-20 09:42 | PDOC.PN ---
- Subjective Encounter Start Date: 05/20/18 Encounter Start Time: 07:30 -: old records requested/rev Patient seen and examined. No new complaints. No overnight events pt feels much better, he feels near to his baseline - Objective Resuscitation Status - Order Detail: 05/19/18 20:46 Resuscitation Status Routine Resuscitation Status: FULL: Full Resuscitation MAR Reviewed: Yes Vital Signs & Weight: Vital Signs (12 hours) Temp Pulse Resp BP Pulse Ox 05/20/18 07:55 100 05/20/18 07:18 98.5 F 96 16 112/88 100 05/20/18 04:00 97.9 F 83 18 138/80 100 05/20/18 00:00 98.0 F 92 16 124/82 98 05/19/18 23:00 98 05/19/18 22:46 98 05/19/18 22:14 98.4 F 97 20 148/101 H 98 Weight Weight 112 lb 9.6 oz I&O: 05/19/18 05/20/18 05/21/18 06:59 06:59 06:59 Intake Total 720 Output Total 720 Balance 0 Result Diagrams: 05/19/18 19:21 05/19/18 19:21 Radiology Reviewed by me: Yes (chest xray reviewed) EKG Reviewed by me: Yes (nsr) Phys Exam - Physical Examination Constitutional: NAD HEENT: PERRLA, moist MMs, sclera anicteric Neck: no JVD, supple Respiratory: no wheezing, no rales, no rhonchi Cardiovascular: RRR, no significant murmur, no rub Gastrointestinal: soft, non-tender, no distention, positive bowel sounds Musculoskeletal: no edema, pulses present Neurological: non-focal, normal sensation, moves all 4 limbs Lymphatic: no nodes Psychiatric: normal affect, A&O x 3 Skin: no rash, normal turgor Dx/Plan (1) Acute on chronic respiratory failure with hypoxia and hypercapnia Code(s): J96.21 - ACUTE AND CHRONIC RESPIRATORY FAILURE WITH HYPOXIA; J96.22 - ACUTE AND CHRONIC RESPIRATORY FAILURE WITH HYPERCAPNIA Status: Acute (2) COPD with acute exacerbation Code(s): J44.1 - CHRONIC OBSTRUCTIVE PULMONARY DISEASE W (ACUTE) EXACERBATION Status: Acute Comment: (3) Alcohol abuse Code(s): F10.10 - ALCOHOL ABUSE, UNCOMPLICATED Status: Chronic (4) Anxiety and depression Code(s): F41.9 - ANXIETY DISORDER, UNSPECIFIED; F32.9 - MAJOR DEPRESSIVE DISORDER, SINGLE EPISODE, UNSPECIFIED Status: Chronic Comment: (5) Bipolar 1 disorder Code(s): F31.9 - BIPOLAR DISORDER, UNSPECIFIED Status: Chronic Comment: (6) Hypertension Code(s): I10 - ESSENTIAL (PRIMARY) HYPERTENSION Status: Chronic Comment: (7) Hyponatremia Code(s): E87.1 - HYPO-OSMOLALITY AND HYPONATREMIA Status: Chronic Comment: (8) Protein-calorie malnutrition, moderate Code(s): E44.0 - MODERATE PROTEIN-CALORIE MALNUTRITION Status: Chronic Comment: - Plan cont current plan of care, continue antibiotics * continue duoneb, dulera, solumderol, levaquin, mucinex * medication reviewed as below * symptomatic treatment * transfer to medical * start walking program. * nutritional support Review of Systems - Review of Systems Constitutional: negative: fever, chills, sweats, weakness, malaise, other Eyes: negative: Pain, Vision Change, Conjunctivae Inflammation, Eyelid Inflammation, Redness, Other ENT: negative: Ear Pain, Ear Discharge, Nose Pain, Nose Discharge, Nose Congestion, Mouth Pain, Mouth Swelling, Throat Pain, Throat Swelling, Other Respiratory: Cough, Shortness of Breath, SOB with Excertion. negative: Dry, Hemoptysis, Pleuritic Pain, Sputum, Wheezing Cardiovascular: negative: chest pain, palpitations, orthopnea, paroxysmal nocturnal dyspnea, edema, light headedness, other Gastrointestinal: negative: Nausea, Vomiting, Abdominal Pain, Diarrhea, Constipation, Melena, Hematochezia, Other Genitourinary: negative: Dysuria, Frequency, Incontinence, Hematuria, Retention , Other Musculoskeletal: negative: Neck Pain, Shoulder Pain, Arm Pain, Back Pain, Hand Pain, Leg Pain, Foot Pain, Other Skin: negative: Rash, Lesions, Rogers, Bruising, Other - Medications/Allergies Allergies/Adverse Reactions: Allergies Allergy/AdvReac Type Severity Reaction Status Date / Time No Known Drug Allergies Allergy Verified 05/07/18 20:06 Medications: Current Medications Acetaminophen (Tylenol) 650 mg PO Q4H PRN PRN Reason: Headache/Fever/Mild Pain (1-3) Acetaminophen (Tylenol) 650 mg MT Q4H PRN PRN Reason: Headache/Fever/Mild Pain (1-3) Albuterol/Ipratropium (Duoneb) 3 ml IPPB Q4H PRN PRN Reason: SOB &/or Wheezing Alprazolam (Xanax) 0.5 mg PO BIDPRN PRN PRN Reason: Anxiety Enoxaparin Sodium (Lovenox) 40 mg SC 0900 [facility] Furosemide (Lasix) 40 mg PO DAILY PRN PRN Reason: Edema Guaifenesin/Dextromethorphan (Robitussin Dm) 15 ml PO Q4H PRN PRN Reason: Cough Levofloxacin 750 mg/ Device 150 mls @ 100 mls/hr IVPB 2300 [facility] Iron/Minerals/Multivitamins (Theragran M) 1 tab PO DAILY DON[facility] Methylprednisolone Sodium Succinate (Solu-Medrol) 40 mg IVP Q6HR DON[facility] Last Admin: 05/20/18 05:13 Dose: 40 mg Miscellaneous Medication (Pharmacy To Dose) 1 each IVPB PRN PRN PRN Reason: Pharmacy to dose Non-Formulary Medication (Budesonide-Formoterol [Symbicort 160-4.5]) 2 puff INH Q4HR PRN PRN Reason: SOB &/or Wheezing Sodium Chloride (Flush - Normal Saline) 10 ml IVF Q12HR PRN PRN Reason: Saline Flush Sodium Chloride (Flush - Normal Saline) 10 ml IVF PRN PRN PRN Reason: Saline Flush Tramadol HCl (Ultram) 50 mg PO Q8H PRN PRN Reason: Moderate Pain (4-6) Last Admin: 05/19/18 23:15 Dose: 50 mg Zolpidem Tartrate (Ambien) 5 mg PO HSPRN PRN PRN Reason: Insomnia
[2018-05-20] MEDS: Enoxaparin Sodium 40 MG/0.4 ML SYRINGE SC SCH (10:36)
[2018-05-20] MEDS: traMADol HCl 50 MG TAB PO PRN (10:36)
[2018-05-20] MEDS: Multivitamin W/ Minerals 1 TAB PO SCH (10:37)
[2018-05-20 17:16] VITALS: BMI 15.7
[2018-05-20] MEDS: HYDROcodone/Acetaminophen 5/325 mg Tablet PO PRN (18:10)
[2018-05-20] MEDS: Mometasone/Formoterol 120 PUFF INHALER INH SCH (18:18)
[2018-05-20] MEDS: guaiFENesin ER 600 MG TAB PO SCH (20:01)
[2018-05-21] MEDS: HYDROcodone/Acetaminophen 5/325 mg Tablet PO PRN ×4 (01:57→23:23)
[2018-05-21] MEDS: Mometasone/Formoterol 120 PUFF INHALER INH SCH ×2 (06:59→18:51)
[2018-05-21] MEDS: Enoxaparin Sodium 40 MG/0.4 ML SYRINGE SC SCH (08:16)
[2018-05-21] MEDS: Multivitamin W/ Minerals 1 TAB PO SCH (08:16)
[2018-05-21] MEDS: guaiFENesin ER 600 MG TAB PO SCH ×2 (08:16→19:39)
[2018-05-21] MEDS ORDERED: Fluticasone Propionate Nasal Spray 16 gm Bottle NASAL SCH (09:00)
[2018-05-21] MEDS: Fluticasone Propionate Nasal Spray 16 gm Bottle NASAL SCH (09:40)
--- NOTE | 2018-05-21 13:06 | PDOC.PN ---
- Subjective Encounter Start Date: 05/21/18 Encounter Start Time: 09:45 Patient seen and examined. No new complaints. No overnight events - Objective Resuscitation Status - Order Detail: 05/19/18 20:46 Resuscitation Status Routine Resuscitation Status: FULL: Full Resuscitation MAR Reviewed: Yes Vital Signs & Weight: Vital Signs (12 hours) Temp Pulse Resp BP Pulse Ox 05/21/18 11:33 98.6 F 107 H 18 134/87 93 L 05/21/18 08:00 92 L 05/21/18 07:37 97.8 F 91 18 131/90 92 L 05/21/18 06:59 87 14 98 05/21/18 06:48 87 16 99 05/21/18 05:05 97.7 F 96 20 148/87 H 93 L Weight Admit Weight 112 lb 9.6 oz Weight 112 lb 9.6 oz I&O: 05/20/18 05/21/18 05/22/18 06:59 06:59 06:59 Intake Total 720 2220 Output Total 720 1350 Balance 0 870 Result Diagrams: 05/19/18 19:21 05/19/18 19:21 Phys Exam - Physical Examination Constitutional: NAD HEENT: PERRLA, moist MMs, sclera anicteric Neck: no JVD, supple Respiratory: no wheezing, no rales, no rhonchi reduced air entry Cardiovascular: RRR, no significant murmur, no rub Gastrointestinal: soft, non-tender, no distention, positive bowel sounds Musculoskeletal: no edema, pulses present Neurological: non-focal, normal sensation Lymphatic: no nodes Psychiatric: normal affect, A&O x 3 Skin: no rash, normal turgor Dx/Plan (1) Acute on chronic respiratory failure with hypercapnia Code(s): J96.22 - ACUTE AND CHRONIC RESPIRATORY FAILURE WITH HYPERCAPNIA Status: Acute Comment: secondary to COPD exacerbation (2) COPD with acute exacerbation Code(s): J44.1 - CHRONIC OBSTRUCTIVE PULMONARY DISEASE W (ACUTE) EXACERBATION Status: Acute Comment: (3) Alcohol abuse Code(s): F10.10 - ALCOHOL ABUSE, UNCOMPLICATED Status: Chronic (4) Anxiety and depression Code(s): F41.9 - ANXIETY DISORDER, UNSPECIFIED; F32.9 - MAJOR DEPRESSIVE DISORDER, SINGLE EPISODE, UNSPECIFIED Status: Chronic Comment: (5) Bipolar 1 disorder Code(s): F31.9 - BIPOLAR DISORDER, UNSPECIFIED Status: Chronic Comment: (6) Hypertension Code(s): I10 - ESSENTIAL (PRIMARY) HYPERTENSION Status: Chronic Comment: (7) Hyponatremia Code(s): E87.1 - HYPO-OSMOLALITY AND HYPONATREMIA Status: Chronic Comment: (8) Protein-calorie malnutrition, moderate Code(s): E44.0 - MODERATE PROTEIN-CALORIE MALNUTRITION Status: Chronic Comment: - Plan cont current plan of care, continue antibiotics, respiratory therapy * medication reviewed as below * symptomatic treatment * continue current maximum treatment for copd as below * today will reduce solumderol * expecting discharge in 24-48 hours. Review of Systems - Review of Systems ENT: negative: Ear Pain, Ear Discharge, Nose Pain, Nose Discharge, Nose Congestion, Mouth Pain, Mouth Swelling, Throat Pain, Throat Swelling, Other Respiratory: negative: Cough, Dry, Shortness of Breath, Hemoptysis, SOB with Excertion, Pleuritic Pain, Sputum, Wheezing Cardiovascular: negative: chest pain, palpitations, orthopnea, paroxysmal nocturnal dyspnea, edema, light headedness, other Gastrointestinal: negative: Nausea, Vomiting, Abdominal Pain, Diarrhea, Constipation, Melena, Hematochezia, Other Genitourinary: negative: Dysuria, Frequency, Incontinence, Hematuria, Retention , Other Musculoskeletal: negative: Neck Pain, Shoulder Pain, Arm Pain, Back Pain, Hand Pain, Leg Pain, Foot Pain, Other - Medications/Allergies Allergies/Adverse Reactions: Allergies Allergy/AdvReac Type Severity Reaction Status Date / Time No Known Drug Allergies Allergy Verified 05/07/18 20:06 Medications: Current Medications Acetaminophen (Tylenol) 500 mg PO Q6H PRN PRN Reason: Mild Pain (1-3) Hydrocodone Bitart/Acetaminophen ([place] 5/325) 1 tab PO Q4H PRN PRN Reason: Moderate Pain (4-6) Last Admin: 05/21/18 09:43 Dose: 1 tab Albuterol/Ipratropium (Duoneb) 3 ml NEB [id number] DONNA Last Admin: 05/21/18 06:48 Dose: 3 ml Albuterol/Ipratropium (Duoneb) 3 ml NEB [id number] PRN PRN Reason: SOB &/or Wheezing Alprazolam (Xanax) 0.5 mg PO BIDPRN PRN PRN Reason: Anxiety Artificial Tears (Tears Naturale) 2 drop EA EYE PRN PRN PRN Reason: Dry Eyes Calcium Carbonate (Tums) 1,000 mg PO Q4H PRN PRN Reason: Heartburn or Indigestion Clonidine (Catapres) 0.1 mg PO Q4H PRN PRN Reason: SBP Greater Than 170 Enoxaparin Sodium (Lovenox) 40 mg SC 0900 [facility] Last Admin: 05/21/18 08:16 Dose: 40 mg Fluticasone Propionate (Flonase Nasal [place]) 0 gm NASAL DAILY [facility] Last Admin: 05/21/18 09:40 Dose: 1 spr Furosemide (Lasix) 40 mg PO DAILY PRN PRN Reason: Edema Guaifenesin (Mucinex) 600 mg PO Q12HR [facility] Last Admin: 05/21/18 08:16 Dose: 600 mg Guaifenesin (Robitussin Sf) 200 mg PO Q4H PRN PRN Reason: Cough Guaifenesin/Dextromethorphan (Robitussin Dm) 15 ml PO Q4H PRN PRN Reason: Cough Hydralazine HCl (Apresoline) 10 mg SLOW IVP Q4H PRN PRN Reason: SBP > 180 and HR < 70 Levofloxacin 750 mg/ Device 150 mls @ 100 mls/hr IVPB 2300 [facility] Last Admin: 05/20/18 23:23 Dose: 150 mls Iron/Minerals/Multivitamins (Theragran M) 1 tab PO DAILY [facility] Last Admin: 05/21/18 08:16 Dose: 1 tab Loperamide HCl (Imodium) 2 mg PO PRN PRN PRN Reason: Diarrhea/Loose Stools Loratadine (Claritin) 10 mg PO DAILYPRN PRN PRN Reason: Sinus Symptoms Methylprednisolone Sodium Succinate (Solu-Medrol) 40 mg IVP Q6HR [facility] Last Admin: 05/21/18 11:26 Dose: 40 mg Mineral Oil/White Petrolatum (Eucerin Cream) 0 gm TOP BIDPRN PRN PRN Reason: Dry Skin Miscellaneous Medication (Pharmacy To Dose) 1 each IVPB PRN PRN PRN Reason: Pharmacy to dose Mometasone Furoate/Formoterol Fumar (Dulera 200 Mcg/5 Mcg Inhaler) 2 puff INH BID-RT [facility] Last Admin: 05/21/18 06:59 Dose: 2 puff Ondansetron HCl (Zofran Odt) 4 mg PO Q6H PRN PRN Reason: Nausea/Vomiting Ondansetron HCl (Zofran) 4 mg IVP Q6H PRN PRN Reason: Nausea/Vomiting Senna/Docusate Sodium (Senokot S) 2 tab PO BID PRN PRN Reason: Constipation Sodium Chloride (Flush - Normal Saline) 10 ml IVF Q12HR PRN PRN Reason: Saline Flush Sodium Chloride (Flush - Normal Saline) 10 ml IVF PRN PRN PRN Reason: Saline Flush Last Admin: 05/20/18 18:03 Dose: 10 ml Sodium Chloride ([place] Nasal [place] 0.65%) 0 ml EA NARE QIDPRN PRN PRN Reason: Nasal Congestion Throat Lozenges (Cepastat Lozenges) 1 melvin PO Q2H PRN PRN Reason: Sore Throat Tramadol HCl (Ultram) 50 mg PO Q8H PRN PRN Reason: Moderate Pain (4-6) Last Admin: 05/20/18 10:36 Dose: 50 mg Zolpidem Tartrate (Ambien) 5 mg PO HSPRN PRN PRN Reason: Insomnia
[2018-05-22] MEDS: HYDROcodone/Acetaminophen 5/325 mg Tablet PO PRN (06:09)
[2018-05-22] MEDS: Mometasone/Formoterol 120 PUFF INHALER INH SCH (07:09)
[2018-05-22 07:22] VITALS: BP 125/94; TEMP 98.5
[2018-05-22] MEDS: Multivitamin W/ Minerals 1 TAB PO SCH (08:48)
[2018-05-22] MEDS: Enoxaparin Sodium 40 MG/0.4 ML SYRINGE SC SCH (08:48)
[2018-05-22] MEDS: guaiFENesin ER 600 MG TAB PO SCH (08:48)
[2018-05-22] MEDS: Fluticasone Propionate Nasal Spray 16 gm Bottle NASAL SCH (08:48)
--- NOTE | 2018-05-22 08:59 | PDOC.PN ---
- Subjective Encounter Start Date: 05/22/18 Encounter Start Time: 07:30 Patient seen and examined. No new complaints. No overnight events - Objective Resuscitation Status - Order Detail: 05/19/18 20:46 Resuscitation Status Routine Resuscitation Status: FULL: Full Resuscitation MAR Reviewed: Yes Vital Signs & Weight: Vital Signs (12 hours) Temp Pulse Resp BP Pulse Ox 05/22/18 07:19 98.5 F 100 20 125/94 H 96 05/22/18 07:09 80 16 05/22/18 06:57 80 16 100 05/22/18 00:33 98.2 F 88 18 145/82 H 100 05/22/18 00:06 89 16 98 Weight Admit Weight 112 lb 9.6 oz Weight 112 lb 9.6 oz I&O: 05/21/18 05/22/18 05/23/18 06:59 06:59 06:59 Intake Total 2220 800 Output Total 1350 Balance 870 800 Result Diagrams: 05/19/18 19:21 05/19/18 19:21 Phys Exam - Physical Examination Constitutional: NAD HEENT: PERRLA, moist MMs, sclera anicteric Neck: no JVD, supple Respiratory: no wheezing, no rales, no rhonchi Cardiovascular: RRR, no significant murmur, no rub Gastrointestinal: soft, non-tender, no distention, positive bowel sounds Musculoskeletal: no edema, pulses present Neurological: non-focal, normal sensation, moves all 4 limbs Dx/Plan (1) Acute on chronic respiratory failure with hypercapnia Code(s): J96.22 - ACUTE AND CHRONIC RESPIRATORY FAILURE WITH HYPERCAPNIA Status: Acute Comment: secondary to COPD exacerbation (2) COPD with acute exacerbation Code(s): J44.1 - CHRONIC OBSTRUCTIVE PULMONARY DISEASE W (ACUTE) EXACERBATION Status: Acute Comment: (3) Alcohol abuse Code(s): F10.10 - ALCOHOL ABUSE, UNCOMPLICATED Status: Chronic (4) Anxiety and depression Code(s): F41.9 - ANXIETY DISORDER, UNSPECIFIED; F32.9 - MAJOR DEPRESSIVE DISORDER, SINGLE EPISODE, UNSPECIFIED Status: Chronic Comment: (5) Bipolar 1 disorder Code(s): F31.9 - BIPOLAR DISORDER, UNSPECIFIED Status: Chronic Comment: (6) Hypertension Code(s): I10 - ESSENTIAL (PRIMARY) HYPERTENSION Status: Chronic Comment: (7) Hyponatremia Code(s): E87.1 - HYPO-OSMOLALITY AND HYPONATREMIA Status: Chronic Comment: (8) Protein-calorie malnutrition, moderate Code(s): E44.0 - MODERATE PROTEIN-CALORIE MALNUTRITION Status: Chronic Comment: - Plan cont current plan of care, continue antibiotics, respiratory therapy * medication reviewed as below * symptomatic treatment * see my discharge toddtushar. Review of Systems - Review of Systems ENT: negative: Ear Pain, Ear Discharge, Nose Pain, Nose Discharge, Nose Congestion, Mouth Pain, Mouth Swelling, Throat Pain, Throat Swelling, Other Respiratory: negative: Cough, Dry, Shortness of Breath, Hemoptysis, SOB with Excertion, Pleuritic Pain, Sputum, Wheezing Cardiovascular: negative: chest pain, palpitations, orthopnea, paroxysmal nocturnal dyspnea, edema, light headedness, other Gastrointestinal: negative: Nausea, Vomiting, Abdominal Pain, Diarrhea, Constipation, Melena, Hematochezia, Other Genitourinary: negative: Dysuria, Frequency, Incontinence, Hematuria, Retention , Other Musculoskeletal: negative: Neck Pain, Shoulder Pain, Arm Pain, Back Pain, Hand Pain, Leg Pain, Foot Pain, Other - Medications/Allergies Allergies/Adverse Reactions: Allergies Allergy/AdvReac Type Severity Reaction Status Date / Time No Known Drug Allergies Allergy Verified 05/07/18 20:06 Medications: Current Medications Acetaminophen (Tylenol) 500 mg PO Q6H PRN PRN Reason: Mild Pain (1-3) Hydrocodone Bitart/Acetaminophen ([place] 5/325) 1 tab PO Q4H PRN PRN Reason: Moderate Pain (4-6) Last Admin: 05/22/18 06:09 Dose: 1 tab Albuterol/Ipratropium (Duoneb) 3 ml NEB [id number] [facility] Last Admin: 05/22/18 06:57 Dose: 3 ml Albuterol/Ipratropium (Duoneb) 3 ml NEB [id number] PRN PRN Reason: SOB &/or Wheezing Alprazolam (Xanax) 0.5 mg PO BIDPRN PRN PRN Reason: Anxiety Artificial Tears (Tears Naturale) 2 drop EA EYE PRN PRN PRN Reason: Dry Eyes Calcium Carbonate (Tums) 1,000 mg PO Q4H PRN PRN Reason: Heartburn or Indigestion Clonidine (Catapres) 0.1 mg PO Q4H PRN PRN Reason: SBP Greater Than 170 Enoxaparin Sodium (Lovenox) 40 mg SC 0900 [facility] Last Admin: 05/22/18 08:48 Dose: 40 mg Fluticasone Propionate (Flonase Nasal [place]) 0 gm NASAL DAILY [facility] Last Admin: 05/22/18 08:48 Dose: 1 spr Furosemide (Lasix) 40 mg PO DAILY PRN PRN Reason: Edema Guaifenesin (Mucinex) 600 mg PO Q12HR [facility] Last Admin: 05/22/18 08:48 Dose: 600 mg Guaifenesin (Robitussin Sf) 200 mg PO Q4H PRN PRN Reason: Cough Guaifenesin/Dextromethorphan (Robitussin Dm) 15 ml PO Q4H PRN PRN Reason: Cough Hydralazine HCl (Apresoline) 10 mg SLOW IVP Q4H PRN PRN Reason: SBP > 180 and HR < 70 Levofloxacin 750 mg/ Device 150 mls @ 100 mls/hr IVPB 2300 [facility] Last Admin: 05/21/18 23:19 Dose: 150 mls Iron/Minerals/Multivitamins (Theragran M) 1 tab PO DAILY [facility] Last Admin: 05/22/18 08:48 Dose: 1 tab Loperamide HCl (Imodium) 2 mg PO PRN PRN PRN Reason: Diarrhea/Loose Stools Loratadine (Claritin) 10 mg PO DAILYPRN PRN PRN Reason: Sinus Symptoms Methylprednisolone Sodium Succinate (Solu-Medrol) 20 mg IVP Q6HR [facility] Last Admin: 05/22/18 06:10 Dose: 20 mg Mineral Oil/White Petrolatum (Eucerin Cream) 0 gm TOP BIDPRN PRN PRN Reason: Dry Skin Miscellaneous Medication (Pharmacy To Dose) 1 each IVPB PRN PRN PRN Reason: Pharmacy to dose Mometasone Furoate/Formoterol Fumar (Dulera 200 Mcg/5 Mcg Inhaler) 2 puff INH BID-RT [facility] Last Admin: 05/22/18 07:09 Dose: 2 puff Ondansetron HCl (Zofran Odt) 4 mg PO Q6H PRN PRN Reason: Nausea/Vomiting Ondansetron HCl (Zofran) 4 mg IVP Q6H PRN PRN Reason: Nausea/Vomiting Senna/Docusate Sodium (Senokot S) 2 tab PO BID PRN PRN Reason: Constipation Sodium Chloride (Flush - Normal Saline) 10 ml IVF Q12HR PRN PRN Reason: Saline Flush Sodium Chloride (Flush - Normal Saline) 10 ml IVF PRN PRN PRN Reason: Saline Flush Last Admin: 05/21/18 17:52 Dose: 10 ml Sodium Chloride ([place] Nasal [place] 0.65%) 0 ml EA NARE QIDPRN PRN PRN Reason: Nasal Congestion Throat Lozenges (Cepastat Lozenges) 1 melvin PO Q2H PRN PRN Reason: Sore Throat Tramadol HCl (Ultram) 50 mg PO Q8H PRN PRN Reason: Moderate Pain (4-6) Last Admin: 05/20/18 10:36 Dose: 50 mg Zolpidem Tartrate (Ambien) 5 mg PO HSPRN PRN PRN Reason: Insomnia
--- NOTE | 2018-05-22 10:13 | DIS ---
DATE OF ADMISSION: 05/19/2018 DATE OF DISCHARGE: 05/22/2018 PRIMARY CARE PHYSICIAN: Cielo Rojo MD DISCHARGE DISPOSITION: Home. PRIMARY DISCHARGE DIAGNOSES: 1. Acute on chronic respiratory failure with hypoxia. 2. Chronic obstructive pulmonary disease with acute exacerbation. SECONDARY DISCHARGE DIAGNOSES: Moderate protein calorie malnutrition, degenerative cervical spine disease with chronic back and neck pain, hyponatremia, hypertension, bipolar disorder, alcohol abuse, chronic obstructive pulmonary disease, respiratory failure, and anxiety and depression. PRIMARY PROCEDURE/OPERATION: None. RADIOLOGICAL INVESTIGATION: Chest x-ray was unremarkable. LABORATORY DATA: Significant labs; WBC 11.6, hemoglobin 11.5, platelets 348. PCO2 of 42.2. Sodium 124, potassium 4.4, BUN 12, creatinine 0.71. LFT normal. Cardiac enzyme negative. BNP 43.4. Cortisol 2.3. TSH 1.6. DISCHARGE MEDICATIONS: 1. Xanax 0.5 mg b.i.d. p.r.n. 2. Multivitamin one capsule daily. 3. ProAir HFA two puffs q.6 hourly p.r.n. 4. Mucinex 600 mg twice daily for 5 days. 5. Levaquin 500 mg daily for 5 days. 6. Flonase nasal spray daily. 7. Dulera two puff inhalation b.i.d. 8. Prednisone 20 mg p.o. daily for 7 days. 9. Tramadol 50 mg q.8 hourly p.r.n. CONTRAINDICATION: None. CODE STATUS: Full code. INPATIENT DEATH CLEARANCE COORDINATOR: None. ALLERGIES: NO KNOWN DRUG ALLERGIES. DISCHARGE PLAN: Posthospital, the patient is instructed to follow up with primary care physician in one week. HOSPITAL COURSE: A 58-year-old male with above-mentioned medical problem, who was admitted by Dr. Valencia. Please see his H and P for further details. The patient was brought to ER for increasing shortness of breath. He was suffering from acute COPD exacerbation. He was slightly hypoxic on admission. He was in respiratory distress. The patient was admitted initially in IMCU. Overnight, he was treated with BiPAP. Subsequently, the patient did not require any BiPAP. The patient was doing much better after optimum COPD treatment while in the hospital. We treated him with Solu-Medrol, DuoNeb, Dulera, empiric antibiotic therapy with Levaquin, Mucinex. Next day, the patient was transferred to medical floor. The patient's saturation was remaining normal, but he was asking for oxygen arrangements. We are trying our best to arrange home oxygen if he qualifies. Otherwise, he will go home with followup with primary care physician. I have prescribed optimum COPD treatment upon discharge. This patient is given counseling to be compliant with medicine and nutritious and dietary education given. This patient's random cortisol is low, but this patient does not have any clinical evidence of adrenal insufficiency that can be repeated as an outpatient basis and the patient is off on steroids. I have seen and examined the patient at bedside today. The patient was complaining of neck pain and he ran out of his pain medication, that is why for his chronic pain, I have prescribed 30 pills of tramadol to use p.r.n. basis. Please see my progress note from today for further details. Job ID: [id number]
--- NOTE | 2018-05-23 17:58 | EKG ---
Test Reason : Blood Pressure : / mmHG Vent. Rate : 106 BPM Atrial Rate : 106 BPM P-R Int : 146 ms QRS Dur : 070 ms QT Int : 326 ms P-R-T Axes : 094 071 089 degrees QTc Int : 433 ms Sinus tachycardia Cannot rule out Anterior infarct , age undetermined Abnormal ECG Confirmed by MELONIE KAY DO ([id number]), editor magazine EDWIN MATIAS ([id number]) on 05/23/2018 5:57:57 PM Referred By: Confirmed By:MELONIE KAY DO
== END 2018-05-22 10:58 | disposition home or self-care (01) | DRG 189 ==
LOC: ERS 18:59 → IMCU/EMU 20:28 → ERS 22:20 → T4-A 05-20 12:43
PROVIDERS: ADMIT Internal Medicine; ATTEND Internal Medicine
PROC: 5A09357 Assistance with Respiratory Ventilation, Less than 24 Consecutive Hours, Continuous Positive Airway Pressure (ICD-10-PCS; principal; 2018-05-19)
DX: J96.22 Acute and chronic respiratory failure with hypercapnia (principal); J44.1 Chronic obstructive pulmonary disease with (acute) exacerbation; E87.1 Hypo-osmolality and hyponatremia; E44.0 Moderate protein-calorie malnutrition; J96.21 Acute and chronic respiratory failure with hypoxia; F10.10 Alcohol abuse, uncomplicated; F41.9 Anxiety disorder, unspecified; F32.9 Major depressive disorder, single episode, unspecified; I11.0 Hypertensive heart disease with heart failure; I50.9 Heart failure, unspecified; G89.29 Other chronic pain; F17.210 Nicotine dependence, cigarettes, uncomplicated; F12.10 Cannabis abuse, uncomplicated; G43.909 Migraine, unspecified, not intractable, without status migrainosus; E78.5 Hyperlipidemia, unspecified; M50.90 Cervical disc disorder, unspecified, unspecified cervical region
CPT/HCPCS: 36415; 71045; 80053; 82533; 82550; 82805; 83880; 83930; 84443; 84484; 85025; 93005; 94640; 94660; 94760; 96365; 96375; J1650; J1956; J2920; J2930; J7620

== ENCOUNTER 2018-06-15 20:52 | Inpatient (IN) | payer OTHER ==
[2018-06-15] MEDS ORDERED: Magnesium 2 GM/50 ML BAG (IN WATER) ONE (21:52)
[2018-06-15] MEDS ORDERED: Azithromycin 500 MG VIAL ONE (21:52)
--- NOTE | 2018-06-15 22:04 | RAD ---
FRONTAL RADIOGRAPH CHEST PORTABLE UPRIGHT: 06/15/2018 HISTORY: Dyspnea. COPD. COMPARISON: 05/19/2018 FINDINGS: There is increased linear interstitial density with marked attenuation of the bronchopulmonary vascul ature and prominent pulmonary hyperinflation, consistent with the provided history of COPD. There is gas within bowel within the left upper quadrant as well. Findings are similar when compared to the 02/10/2018 study. No lobar consolidation or alveolar edema is seen. IMPRESSION: Diffuse interstitial prominence with pulmonary hyperinflation, evidence of severe chronic obstructive pulmonary disease, stable. No focal consolidation or alveolar edema. POS: [facility]
[2018-06-15] MEDS ORDERED: cefTRIAXone\\ROCEPHIN 1 GM VIAL ONE (22:05)
[2018-06-15] MEDS ORDERED: methylPREDNISolone Sod Succ/PF 125 MG/2 ML VIAL ONE (22:05)
[2018-06-15 22:13] LABS: Anisocytosis SLIGHT = 6-15 cells (100X) (0-5/hpf); Band 11 % (5-11); Lymphocytes 8 % (21-51); MDiff Complete? YES; Mean Corpuscular HGB CONC 28.7 g/dL (32.0-36.0); Mean Corpuscular Hemoglobin 29.6 pg (27.0-31.0); Monocytes 16 % (0-10); Neutrophil 65 % (42-75); Platelet Count 349 thou/uL (130-400); RBC Distribution Width 14.7 % (11.5-14.5); Red Blood Cell (RBC) Count 4.73 mill/uL (4.70-6.10); White Blood Cell (WBC) Count 9.9 thou/uL (4.8-10.8)
[2018-06-15 22:14] LABS: ALT (SGPT) 24 U/L (8-55); AST (SGOT) 24 U/L (5-34); Albumin 4.5 g/dL (3.5-5.0); Alkaline Phosphatase 63 U/L (40-150); Anion Gap 15 mmol/L (10-20); BUN (Urea Nitrogen) 10 mg/dL (8.4-25.7); Bilirubin, Total 0.3 mg/dL (0.2-1.2); CK (CPK) 64 U/L (30-200); Calc. Creatinine Clearance 0 mL/min (70-130); Calcium 9.7 mg/dL (7.8-10.44); Carbon Dioxide 27 mmol/L (22-29); Chloride 90 mmol/L (98-107); Estimated GFR-MDRD Greater than 90; Globulin 2.4 g/dL (2.4-3.5); Glucose 114 mg/dL (70-105); Potassium 4.2 mmol/L (3.5-5.1); Protein, Total 6.9 g/dL (6.0-8.3); Sodium 128 mmol/L (136-145)
[2018-06-16] MEDS ORDERED: Ondansetron PF 4 MG/2 ML Vial IVP PRN (00:32)
[2018-06-16] MEDS ORDERED: Acetaminophen 325 MG TAB PO PRN (00:32)
[2018-06-16] MEDS ORDERED: ALPRAZolam 0.5 MG TAB PO PRN (00:37)
[2018-06-16 01:22] LABS: Bilirubin Negative (Negative); Blood, Urine Negative (Negative); Clarity CLEAR (Clear); Glucose, Urine (Dipstick) Negative (Negative); Leukocyte Negative (Negative); Nitrite Negative (Negative); Protein, Urine (Dipstick) Negative (Neg-Trace); Specific Gravity, Urine 1.015 (1.002-1.036); Urobilinogen 0.2 mg/dL (0.2-1.0)
[2018-06-16 04:02] LABS: Anion Gap 15 mmol/L (10-20); BUN (Urea Nitrogen) 10 mg/dL (8.4-25.7); Calc. Creatinine Clearance 0 mL/min (70-130); Calcium 8.5 mg/dL (7.8-10.44); Carbon Dioxide 22 mmol/L (22-29); Chloride 95 mmol/L (98-107); Estimated GFR-MDRD Greater than 90; Glucose 147 mg/dL (70-105); Potassium 4.4 mmol/L (3.5-5.1); Sodium 128 mmol/L (136-145)
[2018-06-16 04:08] LABS: #Basophils 0.1 thou/uL (0.0-0.2); #Lymphocytes 0.2 thou/uL (1.20-3.40); #Monocytes 0.2 thou/uL (0.11-0.59); #Neutrophils 8.5 thou/uL (1.40-6.50); %Eosinophils 0.4 % (0.0-10.0); %Lymphocytes 1.7 % (21.0-51.0); %Monocytes 1.9 % (0.0-10.0); Hemoglobin 12.6 g/dL (14.0-18.0); Mean Corpuscular HGB CONC 32.2 g/dL (32.0-36.0); Mean Corpuscular Hemoglobin 32.6 pg (27.0-31.0); Mean Platelet Volume 6.9 fL (7.4-10.4); Platelet Count 297 thou/uL (130-400); RBC Distribution Width 14.4 % (11.5-14.5); Red Blood Cell (RBC) Count 3.85 mill/uL (4.70-6.10); White Blood Cell (WBC) Count 8.9 thou/uL (4.8-10.8)
--- NOTE | 2018-06-16 07:08 | HP ---
PRIMARY CARE DOCTOR: Dr. Cielo Rojo. CODE STATUS: Full code. TIME OF EVALUATION: 12:10. CHIEF COMPLAINT: Worsening shortness of breath. HISTORY OF PRESENT ILLNESS: This is a 58-year-old male patient with past medical history of COPD, who came to the hospital after having tingling and numbness in all four limbs associated with significant shortness of breath. Symptoms were severe. Present for the past few hours, No clear triggers. No alleviating factors. The patient reported that he has COPD. He has nebulizers at home, but he never used BiPAP. In the ER, the patient was seen and admitted on BiPAP for stabilization. By the time I have examined the patient, he was feeling better. We will place him in IMCU for severe COPD exacerbation. REVIEW OF SYSTEMS: CONSTITUTIONAL: No fever or chills. The patient has generalized weakness. RESPIRATORY: The patient has cough, sputum production, increased shortness of breath. Symptoms are severe. CARDIOVASCULAR: No chest pain or palpitation. GASTROINTESTINAL: No nausea. No vomiting, diarrhea, or abdominal pain. WOOL SORTER: No dizziness, headache, or feeling lightheaded. The patient does report signs of tingling in 4 limbs, this is mild. GENITOURINARY: No burning on urination. EXTREMITIES: No leg swelling. All other systems were reviewed and negative except for the findings mentioned above. PAST MEDICAL HISTORY: Positive for chronic back pain, COPD, CHF, hypertension, migraine. PAST SURGICAL HISTORY: No surgical history. PSYCHIATRIC HISTORY: Includes anxiety and bipolar disorder. SOCIAL HISTORY: The patient drinks everyday, abused marijuana, lives at home alone. FAMILY HISTORY: Reviewed and noncontributory for current presentation. ALLERGIES: NO KNOWN DRUG ALLERGIES REPORTED. MEDICATIONS: 1. Aspirin. 2. Prednisone. 3. Se-Jacobo. 4. Symbicort. 5. [place]. 6. Tramadol. 7. Albuterol sulfate. PHYSICAL EXAMINATION: VITAL SIGNS: On presentation, heart rate 136, oxygen saturation 94% on room air; reported by ER physician, the saturation was in the low side, therefore, the need for BiPAP. Blood pressure 135/87, respiratory rate was 22, temperature 99.1. GENERAL APPEARANCE: The patient is alert and oriented, is still having increased respiratory effort, on BiPAP. HEENT: Eyes, normal conjunctivae. Moist oral mucosa. Anicteric. No JVD. RESPIRATORY: Bilateral air entry is decreased. The patient has bilateral wheezing. No rales. Symmetric expansion is decreased. The patient is on BiPAP. VITAL SIGNS: Within normal limits as of now. CARDIOVASCULAR: Tachycardic. Normal rhythm. No murmurs. No gallop. No edema. ABDOMEN: Soft. Normal bowel sounds. MUSCULOSKELETAL: Baseline range of motion and strength. No tenderness. SKIN: Warm, intact. No pallor. No rash. No redness. Peripheral pulses are present. Capillary refill seems to be intact. NEUROLOGIC: No evidence of any new focal weakness. Baseline speech. Cranial nerves seem to be intact. PSYCHIATRIC: The patient is in good mood. No anxiety. Optimal judgment. IMAGING: EKG was reviewed. Patient has sinus tachycardia at the rate of 114. QT corrected 427, [place] 130. Chest x-ray was reviewed. The patient has diffuse interstitial prominence with pulmonary hyperinflation, evidence of severe chronic obstructive pulmonary disease, stable; no focal consolidation or alveolar edema. LABORATORY DATA: Reviewed. The patient has white count of 9.9, hemoglobin 14, MCV 103, platelet count 349. Chemistry; sodium 128, potassium 4.2, chloride 90, carbon dioxide 27, anion gap 15, BUN 10, creatinine 0.8, GFR greater than 90, glucose 114, lactic acid 2.1. LFTs were normal. Troponin was normal. Urine was done and was normal. ASSESSMENT AND PLAN: The patient will be placed in the hospital with following medical problems: 1. Acute hypoxic respiratory failure secondary to chronic obstructive pulmonary disease exacerbation. We will treat the underlying condition, symptoms are severe pain. 2. Chronic obstructive pulmonary disease exacerbation, severe. The patient presented with hypoxic respiratory failure. The patient needs BiPAP. We will do DuoNeb, steroids, antibiotics. We will adjust treatment as needed. 3. Hyponatremia. Sodium 128. This is moderate. We will monitor. We will adjust treatment as needed. 4. Hyperglycemia. Glucose 114. We will monitor. No need for any acute intervention at this point. 5. History of congestive heart failure, this problem seems to be stable. Chest x -ray showed no congestion, we will reconcile home medications. We will adjust treatment as needed. 6. Controlled hypertension. Blood pressures have been stable. We will reconcile home medications, we will adjust treatment as needed. 7. The patient presented with some tingling in all limbs, etiology is unclear. We will monitor, we will treat accordingly. Symptoms have improved. 8. Deep venous thrombosis prophylaxis. Job ID: [id number] [facility]
[2018-06-16] MEDS ORDERED: Ondansetron ODT 4 MG TAB PO PRN (07:36)
[2018-06-16] MEDS ORDERED: Diabetic Tussin 200 MG/10 ML UDCUP PO PRN (07:36)
[2018-06-16] MEDS ORDERED: Sodium Chloride 0.65% Nasal 44 ML BOT EA NARE PRN (07:36)
[2018-06-16] MEDS ORDERED: Cepastat Lozenges 1 LOZ PO PRN (07:36)
[2018-06-16] MEDS ORDERED: Senokot S 8.6-50 MG TAB PO PRN (07:36)
[2018-06-16] MEDS ORDERED: Artificial Tears 18 DROP/0.9 ML EA EYE PRN (07:36)
[2018-06-16] MEDS ORDERED: Loperamide HCl 2 MG CAP PO PRN (07:36)
[2018-06-16] MEDS ORDERED: Bisacodyl 10 MG SUPP PR PRN (07:36)
[2018-06-16] MEDS ORDERED: Loratadine 10 MG TAB PO PRN (07:36)
[2018-06-16] MEDS ORDERED: Acetaminophen 500 MG TAB PO PRN (07:36)
[2018-06-16] MEDS ORDERED: Calcium Carbonate 500 MG ChewTAB PO PRN (07:36)
[2018-06-16] MEDS ORDERED: Ibuprofen 200 MG TAB PO PRN (07:36)
[2018-06-16] MEDS ORDERED: Eucerin (Mineral Oil/Petrolatum,White) 30 gm Jar TOP PRN (07:36)
[2018-06-16] MEDS ORDERED: cloNIDine 0.1 MG TAB PO PRN (07:36)
[2018-06-16] MEDS ORDERED: methylPREDNISolone Sod Succ 40 MG VIAL ONE ×2 (08:17→13:33)
[2018-06-16] MEDS: methylPREDNISolone Sod Succ 40 MG VIAL IVP SCH ×3 (08:25→17:27)
--- NOTE | 2018-06-16 09:45 | PDOC.PN ---
- Subjective Encounter Start Date: 06/16/18 Encounter Start Time: 07:00 -: old records requested/rev pt was on bipap, he wanted to remove it, pt was not in respi distress, he was talking without any problem on bipap, he was asking for his tramadol for pain, no fever, vitals stable - Objective Resuscitation Status - Order Detail: 06/16/18 00:32 Resuscitation Status Routine Resuscitation Status: FULL: Full Resuscitation MAR Reviewed: Yes Vital Signs & Weight: Vital Signs (12 hours) Pulse Resp Pulse Ox 06/16/18 06:30 97 06/16/18 06:27 104 H 20 100 06/16/18 02:29 98 15 100 Result Diagrams: 06/16/18 03:35 06/16/18 03:35 Radiology Reviewed by me: Yes (chest xray reviewed) EKG Reviewed by me: Yes (sinus tachycardia) Phys Exam - Physical Examination Constitutional: NAD on bipap HEENT: PERRLA, moist MMs, sclera anicteric Neck: no JVD, supple Respiratory: no wheezing, no rales, no rhonchi reduced air entry Cardiovascular: RRR, no significant murmur, no rub tachycardia Gastrointestinal: soft, non-tender, no distention, positive bowel sounds Musculoskeletal: no edema, pulses present Neurological: non-focal, normal sensation, moves all 4 limbs Lymphatic: no nodes Psychiatric: normal affect, A&O x 3 Skin: no rash, normal turgor Dx/Plan (1) Acute on chronic respiratory failure with hypercapnia Code(s): J96.22 - ACUTE AND CHRONIC RESPIRATORY FAILURE WITH HYPERCAPNIA Status: Acute Comment: secondary to COPD exacerbation (2) COPD with acute exacerbation Code(s): J44.1 - CHRONIC OBSTRUCTIVE PULMONARY DISEASE W (ACUTE) EXACERBATION Status: Acute Comment: (3) Alcohol abuse Code(s): F10.10 - ALCOHOL ABUSE, UNCOMPLICATED Status: Chronic (4) Anxiety and depression Code(s): F41.9 - ANXIETY DISORDER, UNSPECIFIED; F32.9 - MAJOR DEPRESSIVE DISORDER, SINGLE EPISODE, UNSPECIFIED Status: Chronic Comment: (5) Bipolar 1 disorder Code(s): F31.9 - BIPOLAR DISORDER, UNSPECIFIED Status: Chronic Comment: (6) Degenerative disc disease, cervical Code(s): M50.30 - OTHER CERVICAL DISC DEGENERATION, UNSP CERVICAL REGION Status: Chronic (7) Hypertension Code(s): I10 - ESSENTIAL (PRIMARY) HYPERTENSION Status: Chronic Comment: (8) Hyponatremia Code(s): E87.1 - HYPO-OSMOLALITY AND HYPONATREMIA Status: Chronic Comment: (9) Protein-calorie malnutrition, moderate Code(s): E44.0 - MODERATE PROTEIN-CALORIE MALNUTRITION Status: Chronic Comment: - Plan cont current plan of care, continue antibiotics, respiratory therapy * will dc bipap and see how he does * if he does well, will admit to medical floor * continue duoneb, solumedrol, dulara, rocephin, azithromycin, mucinex * his home medication reconciled * medication reviewed as below * symptomatic treatment * seems has much improvement so far. Review of Systems - Review of Systems ENT: negative: Ear Pain, Ear Discharge, Nose Pain, Nose Discharge, Nose Congestion, Mouth Pain, Mouth Swelling, Throat Pain, Throat Swelling, Other Respiratory: negative: Cough, Dry, Shortness of Breath, Hemoptysis, SOB with Excertion, Pleuritic Pain, Sputum, Wheezing Cardiovascular: negative: chest pain, palpitations, orthopnea, paroxysmal nocturnal dyspnea, edema, light headedness, other Gastrointestinal: negative: Nausea, Vomiting, Abdominal Pain, Diarrhea, Constipation, Melena, Hematochezia, Other Genitourinary: negative: Dysuria, Frequency, Incontinence, Hematuria, Retention , Other Musculoskeletal: Neck Pain, Back Pain. negative: Shoulder Pain, Arm Pain, Hand Pain, Leg Pain, Foot Pain, Other - Medications/Allergies Allergies/Adverse Reactions: Allergies Allergy/AdvReac Type Severity Reaction Status Date / Time No Known Drug Allergies Allergy Verified 05/07/18 20:06 Medications: Current Medications Acetaminophen (Tylenol) 650 mg PO Q4H PRN PRN Reason: Headache/Fever/Mild Pain (1-3) Acetaminophen (Tylenol) 500 mg PO Q6H PRN PRN Reason: Mild Pain (1-3) Albuterol/Ipratropium (Duoneb) 3 ml NEB [id number] [facility] Last Admin: 06/16/18 06:27 Dose: 3 ml Alprazolam (Xanax) 0.5 mg PO BID PRN PRN Reason: Anxiety Artificial Tears (Tears Naturale) 2 drop EA EYE PRN PRN PRN Reason: Dry Eyes Bisacodyl (Dulcolax) 10 mg [place] DAILYPRN PRN PRN Reason: Constipation Calcium Carbonate (Tums) 1,000 mg PO Q4H PRN PRN Reason: Heartburn or Indigestion Clonidine (Catapres) 0.1 mg PO Q4H PRN PRN Reason: SBP Greater Than 170 Cyanocobalamin (Vitamin B-12) 1,000 mcg PO DAILY [facility] Enoxaparin Sodium (Lovenox) 40 mg SC 0900 [facility] Folic Acid (Folvite) 1 mg PO DAILY [facility] Guaifenesin (Mucinex) 600 mg PO Q12HR [facility] Guaifenesin (Robitussin Sf) 200 mg PO Q4H PRN PRN Reason: Cough Azithromycin 500 mg/ Sodium (Chloride) 250 mls @ 250 mls/hr IVPB Q24HR [facility] Stop: 06/19/18 22:59 Ceftriaxone Sodium 1 gm/ (Sodium Chloride) 100 mls @ 200 mls/hr IVPB Q24HR [facility] Ibuprofen (Motrin) 400 mg PO Q4H PRN PRN Reason: Fever > 101 Iron/Minerals/Multivitamins (Theragran M) 1 tab PO DAILY [facility] Loperamide HCl (Imodium) 2 mg PO PRN PRN PRN Reason: Diarrhea/Loose Stools Loratadine (Claritin) 10 mg PO DAILYPRN PRN PRN Reason: Sinus Symptoms Methylprednisolone Sodium Succinate (Solu-Medrol) 40 mg IVP Q6HR [facility] Last Admin: 06/16/18 08:25 Dose: 40 mg Mineral Oil/White Petrolatum (Eucerin Cream) 0 gm TOP BIDPRN PRN PRN Reason: Dry Skin Mometasone Furoate/Formoterol Fumar (Dulera 200 Mcg/5 Mcg Inhaler) 2 puff INH BID-RT [facility] Ondansetron HCl (Zofran) 4 mg IVP Q6H PRN PRN Reason: Nausea/Vomiting Ondansetron HCl (Zofran Odt) 4 mg PO Q6H PRN PRN Reason: Nausea/Vomiting Pantoprazole Sodium (Protonix) 40 mg PO DAILY [facility] Multivit/Folic Acid/Iron ( Vitamin) 1 tab PO DAILY [facility] Saccharomyces Boulardii (Florastor) 250 mg PO DAILY [facility] Senna/Docusate Sodium (Senokot S) 2 tab PO BID PRN PRN Reason: Constipation Sodium Chloride ([place] 0.65%) 0 ml EA NARE QIDPRN PRN PRN Reason: Nasal Congestion Throat Lozenges (Cepastat Lozenges) 1 melvin PO Q2H PRN PRN Reason: Sore Throat Tramadol HCl (Ultram) 50 mg PO Q8H PRN PRN Reason: Moderate Pain (4-6)
[2018-06-16] MEDS ORDERED: Folic Acid 1 MG TAB ONE (10:54)
[2018-06-16] MEDS ORDERED: Enoxaparin Sodium 40 MG/0.4 ML SYRINGE ONE (10:54)
[2018-06-16] MEDS: Folic Acid 1 MG TAB PO SCH (11:01)
[2018-06-16] MEDS: Enoxaparin Sodium 40 MG/0.4 ML SYRINGE SC SCH (11:01)
[2018-06-16] MEDS: Cyanocobalamin (Vitamin B-12) 1,000 MCG TAB PO SCH (11:01)
[2018-06-16] MEDS: guaiFENesin ER 600 MG TAB PO SCH ×2 (11:02→21:09)
[2018-06-16] MEDS: Saccharomyces boulardii 250 MG CAP PO SCH (11:02)
[2018-06-16] MEDS: Prenatal Vitamin 1 TAB PO SCH (14:49)
[2018-06-16] MEDS: Multivitamin W/ Minerals 1 TAB PO SCH (14:49)
[2018-06-16 15:41] VITALS: BMI 15.8
[2018-06-16] MEDS: Mometasone/Formoterol 120 PUFF INHALER INH SCH (18:37)
[2018-06-16] MEDS: cefTRIAXone\\ROCEPHIN 1 GM in Sodium Chloride 0.9% 100 ML IVPB SCH (21:09)
[2018-06-16] MEDS: Azithromycin 500 MG in Sodium Chloride 0.9% 250 ML 250 ML IVPB SCH (21:16)
[2018-06-16] MEDS ORDERED: Nitroglycerin 0.4 MG TAB (25 Tab Bottle) SL PRN (22:44)
[2018-06-16] MEDS ORDERED: hydrALAZINE 20 MG/ML VIAL SLOW IVP PRN (22:44)
[2018-06-16] MEDS ORDERED: Morphine 4 MG/ML VIAL ONE (23:00)
[2018-06-16] MEDS ORDERED: Nitroglycerin 2% Ointment 1 INCH/1 GM Packet ONE (23:03)
[2018-06-16 23:04] LABS: Actual Bicarbonate (HCO3a) 27.6 mEq/L (22-28); CO2 Tension 52.2 mmHg (35.0-45.0); Calcium, Ionized 1.16 mmol/L (1.12-1.30); Hemoglobin (Hb) 12.7 g/dL (14.0-18.0); O2 Tension (PaO2) 68.8 mmHg (> 80.0); Potassium - ABG Lab 4.56 mmol/L (3.70-5.30); pH, Arterial 7.34 (7.35-7.45)
[2018-06-16] MEDS ORDERED: Magnesium 2 GM/50 ML 2 GM in Premix Bag 1 BAG IVPB SCH ×2 (23:15→23:30)
--- NOTE | 2018-06-16 23:24 | PDOC.EVN ---
Event Note - Event Note Event Note: code green called pt was found in respiratory distress, hypertensive, tachycardic, cxr showing copd pattern,(air-trapping) no evidence of chf, , nitro /morphine given with improvement of symptoms, chest pain improved, ekg- negative for acute ischemia, trop ordered, will place on bipap and place in a monitored unit, will monitor closely, pt at high erisk for deterioration, please see code sheet for details.
--- NOTE | 2018-06-16 23:25 | RAD ---
FRONTAL RADIOGRAPH CHEST 06/16/18 COMPARISON: 06/15/18 HISTORY: Code green, chest pain. FINDINGS: Stable pulmonary hyperinflation and increased linear interstitial density noted consistent with the p atient's history of COPD. No pneumothorax, pleural fluid focal consolidation, or alveolar edema. IMPRESSION: Stable appearance of the chest. POS: [facility]
[2018-06-16 23:28] LABS: Puncture Site RRADIAL
[2018-06-17] MEDS: methylPREDNISolone Sod Succ 40 MG VIAL IVP SCH ×5 (00:01→23:22)
[2018-06-17 02:25] LABS: Troponin I 0.018 ng/mL (< 0.028)
[2018-06-17] MEDS: Mometasone/Formoterol 120 PUFF INHALER INH SCH (07:38)
[2018-06-17] MEDS: Folic Acid 1 MG TAB PO SCH (09:49)
[2018-06-17] MEDS: Enoxaparin Sodium 40 MG/0.4 ML SYRINGE SC SCH (09:49)
[2018-06-17] MEDS: traMADol HCl 50 MG TAB PO PRN (09:49)
[2018-06-17] MEDS: Saccharomyces boulardii 250 MG CAP PO SCH (09:49)
[2018-06-17] MEDS: guaiFENesin ER 600 MG TAB PO SCH ×2 (09:50→20:45)
[2018-06-17] MEDS: Multivitamin W/ Minerals 1 TAB PO SCH (09:50)
[2018-06-17] MEDS: Cyanocobalamin (Vitamin B-12) 1,000 MCG TAB PO SCH (09:50)
[2018-06-17] MEDS: Prenatal Vitamin 1 TAB PO SCH (10:17)
--- NOTE | 2018-06-17 12:22 | PDOC.PN ---
- Subjective Encounter Start Date: 06/17/18 Encounter Start Time: 07:30 last night pt had code green for respi distress, transferred to [facility], started on bipap, this morning he is doing well - Objective Resuscitation Status - Order Detail: 06/16/18 00:32 Resuscitation Status Routine Resuscitation Status: FULL: Full Resuscitation MAR Reviewed: Yes Vital Signs & Weight: Vital Signs (12 hours) Temp Pulse Resp BP BP Pulse Ox 06/17/18 10:39 97.9 F 107 H 26 H 163/109 H 98 06/17/18 10:17 172/100 H 06/17/18 10:12 107 H 06/17/18 10:11 102 H 22 H 96 06/17/18 08:00 98 06/17/18 07:49 104 H 06/17/18 07:38 86 22 H 98 06/17/18 07:16 98.2 F 90 17 117/90 96 06/17/18 04:00 97.9 F 06/17/18 02:11 93 20 100 06/17/18 00:25 100 Weight Weight 113 lb 11.2 oz Most Recent Monitor Data Heart Rate from ECG 80 NIBP 113/82 NIBP BP-Mean 92 Respiration from ECG 13 SpO2 100 I&O: 06/16/18 06/17/18 06/18/18 06:59 06:59 06:59 Output Total 250 Balance -250 Result Diagrams: 06/16/18 03:35 06/16/18 03:35 Radiology Reviewed by me: Yes (chest xray reviewed) EKG Reviewed by me: Yes (nsr) Phys Exam - Physical Examination Constitutional: NAD on bipap HEENT: PERRLA, moist MMs, sclera anicteric Neck: no JVD, supple Respiratory: no wheezing, no rales, no rhonchi reduced air entry Cardiovascular: RRR, no significant murmur, no rub Gastrointestinal: soft, non-tender, no distention, positive bowel sounds Musculoskeletal: no edema, pulses present Neurological: non-focal, normal sensation Lymphatic: no nodes Psychiatric: normal affect, A&O x 3 Skin: no rash, normal turgor Dx/Plan (1) Acute on chronic respiratory failure with hypercapnia Code(s): J96.22 - ACUTE AND CHRONIC RESPIRATORY FAILURE WITH HYPERCAPNIA Status: Acute Comment: secondary to COPD exacerbation (2) COPD with acute exacerbation Code(s): J44.1 - CHRONIC OBSTRUCTIVE PULMONARY DISEASE W (ACUTE) EXACERBATION Status: Acute Comment: (3) Alcohol abuse Code(s): F10.10 - ALCOHOL ABUSE, UNCOMPLICATED Status: Chronic (4) Anxiety and depression Code(s): F41.9 - ANXIETY DISORDER, UNSPECIFIED; F32.9 - MAJOR DEPRESSIVE DISORDER, SINGLE EPISODE, UNSPECIFIED Status: Chronic Comment: (5) Bipolar 1 disorder Code(s): F31.9 - BIPOLAR DISORDER, UNSPECIFIED Status: Chronic Comment: (6) Degenerative disc disease, cervical Code(s): M50.30 - OTHER CERVICAL DISC DEGENERATION, UNSP CERVICAL REGION Status: Chronic (7) Hypertension Code(s): I10 - ESSENTIAL (PRIMARY) HYPERTENSION Status: Chronic Comment: (8) Hyponatremia Code(s): E87.1 - HYPO-OSMOLALITY AND HYPONATREMIA Status: Chronic Comment: (9) Protein-calorie malnutrition, moderate Code(s): E44.0 - MODERATE PROTEIN-CALORIE MALNUTRITION Status: Chronic Comment: - Plan cont current plan of care, continue antibiotics, respiratory therapy * continue brovana, pulmicort and duoneb * continue solumedrol * continue rocephin and azithromycin * bipap as needed * pulmonary consulted * medication reviewed as below * symptomatic treatment. Review of Systems - Review of Systems Constitutional: negative: fever, chills, sweats, weakness, malaise, other Eyes: negative: Pain, Vision Change, Conjunctivae Inflammation, Eyelid Inflammation, Redness, Other ENT: negative: Ear Pain, Ear Discharge, Nose Pain, Nose Discharge, Nose Congestion, Mouth Pain, Mouth Swelling, Throat Pain, Throat Swelling, Other Respiratory: Shortness of Breath, SOB with Excertion. negative: Cough, Dry, Hemoptysis, Pleuritic Pain, Sputum, Wheezing Cardiovascular: negative: chest pain, palpitations, orthopnea, paroxysmal nocturnal dyspnea, edema, light headedness, other Gastrointestinal: negative: Nausea, Vomiting, Abdominal Pain, Diarrhea, Constipation, Melena, Hematochezia, Other Genitourinary: negative: Dysuria, Frequency, Incontinence, Hematuria, Retention , Other Musculoskeletal: Neck Pain, Back Pain. negative: Shoulder Pain, Arm Pain, Hand Pain, Leg Pain, Foot Pain, Other - Medications/Allergies Allergies/Adverse Reactions: Allergies Allergy/AdvReac Type Severity Reaction Status Date / Time No Known Drug Allergies Allergy Verified 06/16/18 14:45 Medications: Current Medications Acetaminophen (Tylenol) 650 mg PO Q4H PRN PRN Reason: Headache/Fever/Mild Pain (1-3) Acetaminophen (Tylenol) 500 mg PO Q6H PRN PRN Reason: Mild Pain (1-3) Albuterol/Ipratropium (Duoneb) 3 ml NEB [id number] [facility] Last Admin: 06/17/18 10:11 Dose: 3 ml Alprazolam (Xanax) 0.5 mg PO BID PRN PRN Reason: Anxiety Arformoterol Tartrate (Brovana) 15 mcg NEB BID-RT [facility] Artificial Tears (Tears Naturale) 2 drop EA EYE PRN PRN PRN Reason: Dry Eyes Bisacodyl (Dulcolax) 10 mg [place] DAILYPRN PRN PRN Reason: Constipation Budesonide (Pulmicort Neb Solution) 0.5 mg INH BID-RT [facility] Calcium Carbonate (Tums) 1,000 mg PO Q4H PRN PRN Reason: Heartburn or Indigestion Clonidine (Catapres) 0.1 mg PO Q4H PRN PRN Reason: SBP Greater Than 170 Last Admin: 06/17/18 10:17 Dose: 0.1 mg Cyanocobalamin (Vitamin B-12) 1,000 mcg PO DAILY [facility] Last Admin: 06/17/18 09:50 Dose: 1,000 mcg Enoxaparin Sodium (Lovenox) 40 mg SC 0900 [facility] Last Admin: 06/17/18 09:49 Dose: 40 mg Folic Acid (Folvite) 1 mg PO DAILY [facility] Last Admin: 06/17/18 09:49 Dose: 1 mg Guaifenesin (Mucinex) 600 mg PO Q12HR [facility] Last Admin: 06/17/18 09:50 Dose: 600 mg Guaifenesin (Robitussin Sf) 200 mg PO Q4H PRN PRN Reason: Cough Hydralazine HCl (Apresoline) 10 mg SLOW IVP Q4H PRN PRN Reason: SBP > 180 and HR < 70 Azithromycin 500 mg/ Sodium (Chloride) 250 mls @ 250 mls/hr IVPB Q24HR [facility] Stop: 06/19/18 22:59 Last Admin: 06/16/18 21:16 Dose: 250 mls Ceftriaxone Sodium 1 gm/ (Sodium Chloride) 100 mls @ 200 mls/hr IVPB Q24HR [facility] Last Admin: 06/16/18 21:09 Dose: 100 mls Ibuprofen (Motrin) 400 mg PO Q4H PRN PRN Reason: Fever > 101 Iron/Minerals/Multivitamins (Theragran M) 1 tab PO DAILY [facility] Last Admin: 06/17/18 09:50 Dose: 1 tab Loperamide HCl (Imodium) 2 mg PO PRN PRN PRN Reason: Diarrhea/Loose Stools Loratadine (Claritin) 10 mg PO DAILYPRN PRN PRN Reason: Sinus Symptoms Methylprednisolone Sodium Succinate (Solu-Medrol) 40 mg IVP Q6HR [facility] Last Admin: 06/17/18 05:48 Dose: 40 mg Mineral Oil/White Petrolatum (Eucerin Cream) 0 gm TOP BIDPRN PRN PRN Reason: Dry Skin Nitroglycerin (Nitrostat) 0.4 mg SL Q5MIN PRN PRN Reason: Chest Pain Last Admin: 06/16/18 22:56 Dose: 0.4 mg Ondansetron HCl (Zofran) 4 mg IVP Q6H PRN PRN Reason: Nausea/Vomiting Ondansetron HCl (Zofran Odt) 4 mg PO Q6H PRN PRN Reason: Nausea/Vomiting Pantoprazole Sodium (Protonix) 40 mg PO DAILY [facility] Last Admin: 06/17/18 09:50 Dose: 40 mg Multivit/Folic Acid/Iron ( Vitamin) 1 tab PO DAILY [facility] Last Admin: 06/17/18 10:17 Dose: 1 tab Saccharomyces Boulardii (Florastor) 250 mg PO DAILY [facility] Last Admin: 06/17/18 09:49 Dose: 250 mg Senna/Docusate Sodium (Senokot S) 2 tab PO BID PRN PRN Reason: Constipation Sodium Chloride ([place] Nasal [place] 0.65%) 0 ml EA NARE QIDPRN PRN PRN Reason: Nasal Congestion Throat Lozenges (Cepastat Lozenges) 1 melvin PO Q2H PRN PRN Reason: Sore Throat Tramadol HCl (Ultram) 50 mg PO Q8H PRN PRN Reason: Moderate Pain (4-6) Last Admin: 06/17/18 09:49 Dose: 50 mg
--- NOTE | 2018-06-17 16:18 | CON ---
DATE OF CONSULTATION: 06/17/2018 TIME SPENT: 50 minutes time, of that time, greater than 50% was spent with the patient and/or the patient's unit in the hospital. HISTORY OF PRESENT ILLNESS: This is a 58-year-old male, who is followed by Dr. Patricio. He came in last night with increasing shortness of breath, wheezing, cough, and inability to cough up sputum. Symptoms been present for a number of days. He denies any fever. He did have some midsternal chest pain last night for which he got nitroglycerin. He also has been on BiPAP overnight. PAST MEDICAL HISTORY: 1. Chronic neck pain. 2. Chronic obstructive pulmonary disease. 3. Congestive heart failure. 4. Hypertension. 5. Migraine headaches. PAST SURGICAL HISTORY: None. SOCIAL HISTORY: Smoked up until about 6 months ago. Drinks about 2 beers a day. PSYCHIATRIC HISTORY: Remarkable for anxiety and bipolar disorder. ALLERGIES: NONE. MEDICATIONS: Prior to admission; 1. Aspirin. 2. Prednisone. 3. Symbicort. 4. [place]. 5. Tramadol. 6. Albuterol. REVIEW OF SYSTEMS: He has had the midsternal chest pain. He denies any incontinence or difficulty with urination. He does occasionally have trouble with constipation. PHYSICAL EXAMINATION: VITAL SIGNS: Temperature is 98.2, pulse 104, respirations 22, O2 saturation 98% on 2 L, blood pressure 117/90. GENERAL: He is lying in bed, in no acute distress on BiPAP. I took the BiPAP off and examined him. HEENT: Unremarkable. NECK: No JVD. LUNGS: He has tight expiratory wheezes best heard posteriorly. CARDIAC: S1 and S2 regular. ABDOMEN: Soft, nontender. EXTREMITIES: No clubbing, cyanosis, or edema. LABORATORY DATA: Sodium 128, potassium 4.4, chloride 95, CO2 of 22, BUN 10, creatinine 0.7, glucose 147. PH 7.34, pCO2 of 52, PO2 of 68, that was on 2 L. White blood cell count 8.9, hematocrit 39, and platelet count 297. Urinalysis shows some ketones. Chest x-ray shows hyperinflation without evidence of failure or infiltrate. ASSESSMENT: 1. Chronic obstructive pulmonary disease with exacerbation. 2. Acute on chronic hypercapnic respiratory failure, requiring intermittent mechanical ventilation with BiPAP. 3. Hypertension. 4. Chronic hyponatremia based on old labs. PLAN: 1. Continue antibiotics, steroids, nebulization treatments, and intermittent BiPAP as needed. Leave in IMC for the time being. 2. We will notify Dr. Patricio in patient's room. Job ID: [id number]
[2018-06-17] MEDS: Budesonide 0.5 MG/2 ML NEB INH SCH (19:34)
[2018-06-17] MEDS: Arformoterol 15 MCG/2 ML NEB NEB SCH (19:34)
[2018-06-17] MEDS: cefTRIAXone\\ROCEPHIN 1 GM in Sodium Chloride 0.9% 100 ML IVPB SCH (20:44)
[2018-06-17] MEDS: Azithromycin 500 MG in Sodium Chloride 0.9% 250 ML 250 ML IVPB SCH (21:20)
[2018-06-18] MEDS: traMADol HCl 50 MG TAB PO PRN (02:36)
[2018-06-18] MEDS: methylPREDNISolone Sod Succ 40 MG VIAL IVP SCH ×3 (05:29→17:49)
[2018-06-18] MEDS: Arformoterol 15 MCG/2 ML NEB NEB SCH ×2 (08:05→18:31)
[2018-06-18] MEDS: Budesonide 0.5 MG/2 ML NEB INH SCH ×2 (08:05→18:31)
[2018-06-18] MEDS: Prenatal Vitamin 1 TAB PO SCH (08:34)
[2018-06-18] MEDS: Saccharomyces boulardii 250 MG CAP PO SCH (08:34)
[2018-06-18] MEDS: guaiFENesin ER 600 MG TAB PO SCH ×2 (08:34→20:12)
[2018-06-18] MEDS: Multivitamin W/ Minerals 1 TAB PO SCH (08:34)
[2018-06-18] MEDS: Folic Acid 1 MG TAB PO SCH (08:34)
[2018-06-18] MEDS: Enoxaparin Sodium 40 MG/0.4 ML SYRINGE SC SCH (08:34)
[2018-06-18] MEDS: Cyanocobalamin (Vitamin B-12) 1,000 MCG TAB PO SCH (08:34)
--- NOTE | 2018-06-18 12:24 | PDOC.PN ---
- Subjective Encounter Start Date: 06/18/18 Encounter Start Time: 09:20 Patient seen and examined. No new complaints. No overnight events, on bipap - Objective Resuscitation Status - Order Detail: 06/16/18 00:32 Resuscitation Status Routine Resuscitation Status: FULL: Full Resuscitation MAR Reviewed: Yes Vital Signs & Weight: Vital Signs (12 hours) Temp Pulse Resp BP Pulse Ox 06/18/18 10:45 104 H 06/18/18 10:44 107 H 22 H 93 L 06/18/18 08:06 92 L 06/18/18 08:05 86 20 92 L 06/18/18 08:04 90 20 92 L 06/18/18 07:39 93 L 06/18/18 07:37 98.4 F 87 20 151/86 H 93 L 06/18/18 04:01 98.4 F 88 18 142/96 H 94 L 06/18/18 02:31 92 Weight Admit Weight 113 lb 11.2 oz Weight 113 lb 11.2 oz Most Recent Monitor Data Heart Rate from ECG 80 NIBP 113/82 NIBP BP-Mean 92 Respiration from ECG 13 SpO2 100 I&O: 06/17/18 06/18/18 06/19/18 06:59 06:59 06:59 Intake Total 960 Output Total 250 630 Balance -250 330 Result Diagrams: 06/16/18 03:35 06/16/18 03:35 EKG Reviewed by me: Yes (nsr) Phys Exam - Physical Examination Constitutional: NAD on bipap HEENT: PERRLA, moist MMs, sclera anicteric Neck: no JVD, supple Respiratory: no wheezing, no rales, no rhonchi reduced air entry Cardiovascular: RRR, no significant murmur, no rub Gastrointestinal: soft, non-tender, no distention, positive bowel sounds Musculoskeletal: no edema, pulses present Neurological: non-focal, normal sensation, moves all 4 limbs Lymphatic: no nodes Psychiatric: normal affect, A&O x 3 Skin: no rash, normal turgor Dx/Plan (1) Acute on chronic respiratory failure with hypercapnia Code(s): J96.22 - ACUTE AND CHRONIC RESPIRATORY FAILURE WITH HYPERCAPNIA Status: Acute Comment: secondary to COPD exacerbation (2) COPD with acute exacerbation Code(s): J44.1 - CHRONIC OBSTRUCTIVE PULMONARY DISEASE W (ACUTE) EXACERBATION Status: Acute Comment: (3) Alcohol abuse Code(s): F10.10 - ALCOHOL ABUSE, UNCOMPLICATED Status: Chronic (4) Anxiety and depression Code(s): F41.9 - ANXIETY DISORDER, UNSPECIFIED; F32.9 - MAJOR DEPRESSIVE DISORDER, SINGLE EPISODE, UNSPECIFIED Status: Chronic Comment: (5) Bipolar 1 disorder Code(s): F31.9 - BIPOLAR DISORDER, UNSPECIFIED Status: Chronic Comment: (6) Degenerative disc disease, cervical Code(s): M50.30 - OTHER CERVICAL DISC DEGENERATION, UNSP CERVICAL REGION Status: Chronic (7) Hypertension Code(s): I10 - ESSENTIAL (PRIMARY) HYPERTENSION Status: Chronic Comment: (8) Hyponatremia Code(s): E87.1 - HYPO-OSMOLALITY AND HYPONATREMIA Status: Chronic Comment: (9) Protein-calorie malnutrition, moderate Code(s): E44.0 - MODERATE PROTEIN-CALORIE MALNUTRITION Status: Chronic Comment: - Plan cont current plan of care, continue antibiotics, respiratory therapy * continue current optimum medical therapy for copd * pulmonary on case * monitor for now * nothing to add * he needs more time to recover. Review of Systems - Review of Systems ENT: negative: Ear Pain, Ear Discharge, Nose Pain, Nose Discharge, Nose Congestion, Mouth Pain, Mouth Swelling, Throat Pain, Throat Swelling, Other Respiratory: Cough, Shortness of Breath, SOB with Excertion. negative: Dry, Hemoptysis, Pleuritic Pain, Sputum, Wheezing Cardiovascular: negative: chest pain, palpitations, orthopnea, paroxysmal nocturnal dyspnea, edema, light headedness, other Gastrointestinal: negative: Nausea, Vomiting, Abdominal Pain, Diarrhea, Constipation, Melena, Hematochezia, Other Genitourinary: negative: Dysuria, Frequency, Incontinence, Hematuria, Retention , Other Musculoskeletal: negative: Neck Pain, Shoulder Pain, Arm Pain, Back Pain, Hand Pain, Leg Pain, Foot Pain, Other - Medications/Allergies Allergies/Adverse Reactions: Allergies Allergy/AdvReac Type Severity Reaction Status Date / Time No Known Drug Allergies Allergy Verified 06/16/18 14:45 Medications: Current Medications Acetaminophen (Tylenol) 650 mg PO Q4H PRN PRN Reason: Headache/Fever/Mild Pain (1-3) Acetaminophen (Tylenol) 500 mg PO Q6H PRN PRN Reason: Mild Pain (1-3) Albuterol/Ipratropium (Duoneb) 3 ml NEB [id number] [facility] Last Admin: 06/18/18 10:44 Dose: 3 ml Alprazolam (Xanax) 0.5 mg PO BID PRN PRN Reason: Anxiety Arformoterol Tartrate (Brovana) 15 mcg NEB BID-RT [facility] Last Admin: 06/18/18 08:05 Dose: 15 mcg Artificial Tears (Tears Naturale) 2 drop EA EYE PRN PRN PRN Reason: Dry Eyes Bisacodyl (Dulcolax) 10 mg [place] DAILYPRN PRN PRN Reason: Constipation Budesonide (Pulmicort Neb Solution) 0.5 mg INH BID-RT [facility] Last Admin: 06/18/18 08:05 Dose: 0.5 mg Calcium Carbonate (Tums) 1,000 mg PO Q4H PRN PRN Reason: Heartburn or Indigestion Clonidine (Catapres) 0.1 mg PO Q4H PRN PRN Reason: SBP Greater Than 170 Last Admin: 06/17/18 10:17 Dose: 0.1 mg Cyanocobalamin (Vitamin B-12) 1,000 mcg PO DAILY [facility] Last Admin: 06/18/18 08:34 Dose: 1,000 mcg Enoxaparin Sodium (Lovenox) 40 mg SC 0900 [facility] Last Admin: 06/18/18 08:34 Dose: 40 mg Folic Acid (Folvite) 1 mg PO DAILY [facility] Last Admin: 06/18/18 08:34 Dose: 1 mg Guaifenesin (Mucinex) 600 mg PO Q12HR [facility] Last Admin: 06/18/18 08:34 Dose: 600 mg Guaifenesin (Robitussin Sf) 200 mg PO Q4H PRN PRN Reason: Cough Hydralazine HCl (Apresoline) 10 mg SLOW IVP Q4H PRN PRN Reason: SBP > 180 and HR < 70 Azithromycin 500 mg/ Sodium (Chloride) 250 mls @ 250 mls/hr IVPB Q24HR [facility] Stop: 06/19/18 22:59 Last Admin: 06/17/18 21:20 Dose: 250 mls Ceftriaxone Sodium 1 gm/ (Sodium Chloride) 100 mls @ 200 mls/hr IVPB Q24HR [facility] Last Admin: 06/17/18 20:44 Dose: 100 mls Ibuprofen (Motrin) 400 mg PO Q4H PRN PRN Reason: Fever > 101 Iron/Minerals/Multivitamins (Theragran M) 1 tab PO DAILY [facility] Last Admin: 06/18/18 08:34 Dose: 1 tab Loperamide HCl (Imodium) 2 mg PO PRN PRN PRN Reason: Diarrhea/Loose Stools Loratadine (Claritin) 10 mg PO DAILYPRN PRN PRN Reason: Sinus Symptoms Methylprednisolone Sodium Succinate (Solu-Medrol) 40 mg IVP Q6HR [facility] Last Admin: 06/18/18 05:29 Dose: 40 mg Mineral Oil/White Petrolatum (Eucerin Cream) 0 gm TOP BIDPRN PRN PRN Reason: Dry Skin Nitroglycerin (Nitrostat) 0.4 mg SL Q5MIN PRN PRN Reason: Chest Pain Last Admin: 06/16/18 22:56 Dose: 0.4 mg Ondansetron HCl (Zofran) 4 mg IVP Q6H PRN PRN Reason: Nausea/Vomiting Ondansetron HCl (Zofran Odt) 4 mg PO Q6H PRN PRN Reason: Nausea/Vomiting Pantoprazole Sodium (Protonix) 40 mg PO DAILY [facility] Last Admin: 06/18/18 08:34 Dose: 40 mg Multivit/Folic Acid/Iron ( Vitamin) 1 tab PO DAILY [facility] Last Admin: 06/18/18 08:34 Dose: 1 tab Saccharomyces Boulardii (Florastor) 250 mg PO DAILY [facility] Last Admin: 06/18/18 08:34 Dose: 250 mg Senna/Docusate Sodium (Senokot S) 2 tab PO BID PRN PRN Reason: Constipation Sodium Chloride ([place] Nasal [place] 0.65%) 0 ml EA NARE QIDPRN PRN PRN Reason: Nasal Congestion Throat Lozenges (Cepastat Lozenges) 1 melvin PO Q2H PRN PRN Reason: Sore Throat Tramadol HCl (Ultram) 50 mg PO Q8H PRN PRN Reason: Moderate Pain (4-6) Last Admin: 06/18/18 02:36 Dose: 50 mg
[2018-06-18] MEDS: cefTRIAXone\\ROCEPHIN 1 GM in Sodium Chloride 0.9% 100 ML IVPB SCH (20:12)
[2018-06-18] MEDS: Azithromycin 250 MG TAB PO SCH (20:12)
[2018-06-19] MEDS: methylPREDNISolone Sod Succ 40 MG VIAL IVP SCH ×4 (00:13→17:26)
--- NOTE | 2018-06-19 00:42 | CON ---
DATE OF CONSULTATION: HISTORY OF PRESENT ILLNESS: Mr. Arellano is a very pleasant 58-year-old male who I follow, who has been in and out of the hospital. He has very severe chronic obstructive pulmonary disease. Unfortunately, Mr. Arellano never can completely stay away from cigarettes, although he says it has been a few weeks since he had 3 cigarettes. He presented with shortness of breath requiring BiPAP. He is clinically improving. Say he has not really been able to stay completely off BiPAP and I removed it when I saw him this morning. We will continue to use it p.r.n. at bedtime. PHYSICAL EXAMINATION: VITAL SIGNS: His heart rate is in the 90s, respiratory rate is 14, oximetry is 94%. Was on cannula for a while this afternoon with saturating 92 on 3 L cannula. His pCO2 on his blood gas on the was 52 with a pH of 7.34. He still has faint wheezes diffusely. HEART: Regular rhythm. ABDOMEN: Soft. IMPRESSION: 1. Advanced chronic obstructive pulmonary disease, near end-stage. 2. Ongoing intermittent tobacco use. PLAN: Continue with BiPAP, continue with steroids, and inhaled bronchodilator therapy and [place] twice a day. He is also getting ipratropium and albuterol every 4 hours. Steroid dosing will be probably decreased tomorrow and will continue with IV steroids. He does well with BiPAP but if we did not have BiPAP, he would have been intubated. We will continue to follow the other physicians caring for him. Job ID: [id number]
[2018-06-19] MEDS: Arformoterol 15 MCG/2 ML NEB NEB SCH ×2 (08:04→19:16)
[2018-06-19] MEDS: Budesonide 0.5 MG/2 ML NEB INH SCH ×2 (08:09→19:16)
[2018-06-19] MEDS: Enoxaparin Sodium 40 MG/0.4 ML SYRINGE SC SCH (09:50)
[2018-06-19] MEDS: Cyanocobalamin (Vitamin B-12) 1,000 MCG TAB PO SCH (09:50)
[2018-06-19] MEDS: guaiFENesin ER 600 MG TAB PO SCH ×2 (09:51→21:01)
[2018-06-19] MEDS: Multivitamin W/ Minerals 1 TAB PO SCH (09:51)
[2018-06-19] MEDS: Saccharomyces boulardii 250 MG CAP PO SCH (09:51)
[2018-06-19] MEDS: Folic Acid 1 MG TAB PO SCH (09:51)
[2018-06-19] MEDS: Prenatal Vitamin 1 TAB PO SCH (09:51)
--- NOTE | 2018-06-19 11:28 | PDOC.PN ---
- Subjective Encounter Start Date: 06/19/18 Encounter Start Time: 09:50 pt is on bipap, still in respi distress Patient seen and examined. No overnight events - Objective Resuscitation Status - Order Detail: 06/16/18 00:32 Resuscitation Status Routine Resuscitation Status: FULL: Full Resuscitation MAR Reviewed: Yes Vital Signs & Weight: Vital Signs (12 hours) Temp Pulse Resp BP Pulse Ox 06/19/18 11:18 98.2 F 108 H 24 H 161/101 H 97 06/19/18 10:53 100 06/19/18 10:51 100 23 H 99 06/19/18 08:11 93 06/19/18 08:04 89 19 99 06/19/18 07:28 97.4 F L 100 28 H 158/104 H 99 06/19/18 04:00 97.8 F 98 18 160/98 H 93 L 06/19/18 02:38 87 13 97 06/19/18 00:00 97.3 F L 87 16 115/82 98 Weight Admit Weight 113 lb 11.2 oz Weight 110 lb 9.6 oz Most Recent Monitor Data Heart Rate from ECG 80 NIBP 113/82 NIBP BP-Mean 92 Respiration from ECG 13 SpO2 100 I&O: 06/18/18 06/19/18 06/20/18 06:59 06:59 06:59 Intake Total 960 930 Output Total 630 350 Balance 330 580 Result Diagrams: 06/16/18 03:35 06/16/18 03:35 EKG Reviewed by me: Yes (nsr) Phys Exam - Physical Examination Constitutional: NAD on bipap HEENT: PERRLA, moist MMs, sclera anicteric Neck: no JVD, supple silent chest Cardiovascular: RRR, no significant murmur, no rub Gastrointestinal: soft, non-tender, no distention, positive bowel sounds Musculoskeletal: no edema, pulses present Neurological: non-focal, normal sensation Lymphatic: no nodes Psychiatric: normal affect, A&O x 3 Skin: no rash, normal turgor Dx/Plan (1) Acute on chronic respiratory failure with hypercapnia Code(s): J96.22 - ACUTE AND CHRONIC RESPIRATORY FAILURE WITH HYPERCAPNIA Status: Acute Comment: secondary to COPD exacerbation (2) COPD with acute exacerbation Code(s): J44.1 - CHRONIC OBSTRUCTIVE PULMONARY DISEASE W (ACUTE) EXACERBATION Status: Acute Comment: (3) Alcohol abuse Code(s): F10.10 - ALCOHOL ABUSE, UNCOMPLICATED Status: Chronic (4) Anxiety and depression Code(s): F41.9 - ANXIETY DISORDER, UNSPECIFIED; F32.9 - MAJOR DEPRESSIVE DISORDER, SINGLE EPISODE, UNSPECIFIED Status: Chronic Comment: (5) Bipolar 1 disorder Code(s): F31.9 - BIPOLAR DISORDER, UNSPECIFIED Status: Chronic Comment: (6) Degenerative disc disease, cervical Code(s): M50.30 - OTHER CERVICAL DISC DEGENERATION, UNSP CERVICAL REGION Status: Chronic (7) Hypertension Code(s): I10 - ESSENTIAL (PRIMARY) HYPERTENSION Status: Chronic Comment: (8) Hyponatremia Code(s): E87.1 - HYPO-OSMOLALITY AND HYPONATREMIA Status: Chronic Comment: (9) Protein-calorie malnutrition, moderate Code(s): E44.0 - MODERATE PROTEIN-CALORIE MALNUTRITION Status: Chronic Comment: - Plan cont current plan of care, plan discussed w/ family, continue antibiotics, respiratory therapy * continue bipap * he is not tolerating off bipap for hour * medication reviewed as below * symptomatic treatment * continue current optimum medical therapy for copd * discussed with son bedside. Review of Systems - Review of Systems Constitutional: weakness. negative: fever, chills, sweats, malaise, other ENT: negative: Ear Pain, Ear Discharge, Nose Pain, Nose Discharge, Nose Congestion, Mouth Pain, Mouth Swelling, Throat Pain, Throat Swelling, Other Respiratory: Cough, Shortness of Breath, SOB with Excertion. negative: Dry, Hemoptysis, Pleuritic Pain, Sputum, Wheezing Cardiovascular: negative: chest pain, palpitations, orthopnea, paroxysmal nocturnal dyspnea, edema, light headedness, other Gastrointestinal: negative: Nausea, Vomiting, Abdominal Pain, Diarrhea, Constipation, Melena, Hematochezia, Other Genitourinary: negative: Dysuria, Frequency, Incontinence, Hematuria, Retention , Other Musculoskeletal: negative: Neck Pain, Shoulder Pain, Arm Pain, Back Pain, Hand Pain, Leg Pain, Foot Pain, Other Skin: negative: Rash, Lesions, [place], Bruising, Other - Medications/Allergies Allergies/Adverse Reactions: Allergies Allergy/AdvReac Type Severity Reaction Status Date / Time No Known Drug Allergies Allergy Verified 06/16/18 14:45 Medications: Current Medications Acetaminophen (Tylenol) 650 mg PO Q4H PRN PRN Reason: Headache/Fever/Mild Pain (1-3) Acetaminophen (Tylenol) 500 mg PO Q6H PRN PRN Reason: Mild Pain (1-3) Albuterol/Ipratropium (Duoneb) 3 ml NEB [id number] [facility] Last Admin: 06/19/18 10:51 Dose: 3 ml Alprazolam (Xanax) 0.5 mg PO BID PRN PRN Reason: Anxiety Arformoterol Tartrate (Brovana) 15 mcg NEB BID-RT [facility] Last Admin: 06/19/18 08:04 Dose: 15 mcg Artificial Tears (Tears Naturale) 2 drop EA EYE PRN PRN PRN Reason: Dry Eyes Azithromycin (Zithromax) 500 mg PO 2100 [facility] Stop: 06/19/18 23:00 Last Admin: 06/18/18 20:12 Dose: 500 mg Bisacodyl (Dulcolax) 10 mg [place] DAILYPRN PRN PRN Reason: Constipation Budesonide (Pulmicort Neb Solution) 0.5 mg INH BID-RT [facility] Last Admin: 06/19/18 08:09 Dose: 0.5 mg Calcium Carbonate (Tums) 1,000 mg PO Q4H PRN PRN Reason: Heartburn or Indigestion Clonidine (Catapres) 0.1 mg PO Q4H PRN PRN Reason: SBP Greater Than 170 Last Admin: 06/17/18 10:17 Dose: 0.1 mg Cyanocobalamin (Vitamin B-12) 1,000 mcg PO DAILY [facility] Last Admin: 06/19/18 09:50 Dose: 1,000 mcg Enoxaparin Sodium (Lovenox) 40 mg SC 0900 [facility] Last Admin: 06/19/18 09:50 Dose: 40 mg Folic Acid (Folvite) 1 mg PO DAILY [facility] Last Admin: 06/19/18 09:51 Dose: 1 mg Guaifenesin (Mucinex) 600 mg PO Q12HR [facility] Last Admin: 06/19/18 09:51 Dose: 600 mg Guaifenesin (Robitussin Sf) 200 mg PO Q4H PRN PRN Reason: Cough Hydralazine HCl (Apresoline) 10 mg SLOW IVP Q4H PRN PRN Reason: SBP > 180 and HR < 70 Ceftriaxone Sodium 1 gm/ (Sodium Chloride) 100 mls @ 200 mls/hr IVPB Q24HR [facility] Last Admin: 06/18/18 20:12 Dose: 100 mls Ibuprofen (Motrin) 400 mg PO Q4H PRN PRN Reason: Fever > 101 Iron/Minerals/Multivitamins (Theragran M) 1 tab PO DAILY [facility] Last Admin: 06/19/18 09:51 Dose: 1 tab Loperamide HCl (Imodium) 2 mg PO PRN PRN PRN Reason: Diarrhea/Loose Stools Loratadine (Claritin) 10 mg PO DAILYPRN PRN PRN Reason: Sinus Symptoms Methylprednisolone Sodium Succinate (Solu-Medrol) 40 mg IVP Q6HR [facility] Last Admin: 06/19/18 05:39 Dose: 40 mg Mineral Oil/White Petrolatum (Eucerin Cream) 0 gm TOP BIDPRN PRN PRN Reason: Dry Skin Nitroglycerin (Nitrostat) 0.4 mg SL Q5MIN PRN PRN Reason: Chest Pain Last Admin: 06/16/18 22:56 Dose: 0.4 mg Ondansetron HCl (Zofran) 4 mg IVP Q6H PRN PRN Reason: Nausea/Vomiting Ondansetron HCl (Zofran Odt) 4 mg PO Q6H PRN PRN Reason: Nausea/Vomiting Pantoprazole Sodium (Protonix) 40 mg PO DAILY [facility] Last Admin: 06/19/18 09:51 Dose: 40 mg Multivit/Folic Acid/Iron ( Vitamin) 1 tab PO DAILY [facility] Last Admin: 06/19/18 09:51 Dose: 1 tab Saccharomyces Boulardii (Florastor) 250 mg PO DAILY [facility] Last Admin: 06/19/18 09:51 Dose: 250 mg Senna/Docusate Sodium (Senokot S) 2 tab PO BID PRN PRN Reason: Constipation Sodium Chloride ([place] Nasal [place] 0.65%) 0 ml EA NARE QIDPRN PRN PRN Reason: Nasal Congestion Throat Lozenges (Cepastat Lozenges) 1 melvin PO Q2H PRN PRN Reason: Sore Throat Tramadol HCl (Ultram) 50 mg PO Q8H PRN PRN Reason: Moderate Pain (4-6) Last Admin: 06/18/18 02:36 Dose: 50 mg
--- NOTE | 2018-06-19 11:57 | PRG ---
DATE OF SERVICE: 06/19/2018 SUBJECTIVE: Gallito Arellano says he is feeling better, but he cannot take BiPAP off for longer than 10 minutes. OBJECTIVE: VITAL SIGNS: He is afebrile. Heart rate is 108, respiratory rate is 24, oximetry is 97. LUNGS: Remarkable for distant wheezes. HEART: Regular rhythm. Distant S1 and S2. ABDOMEN: Soft and nontender. EXTREMITIES: Without edema. LABORATORY DATA: He has no new lab today. IMPRESSION: End-stage chronic obstructive pulmonary disease. When he is not flaring, he is reasonably functional, but he will need to be maintained in the intermediate care unit with intermittent BiPAP for now. Hopefully, he will start improving. Job ID: [id number]
[2018-06-19] MEDS: ALPRAZolam 0.5 MG TAB PO PRN (17:26)
[2018-06-19] MEDS: traMADol HCl 50 MG TAB PO PRN (17:30)
[2018-06-19] MEDS: Azithromycin 250 MG TAB PO SCH (21:01)
[2018-06-19] MEDS: cefTRIAXone\\ROCEPHIN 1 GM in Sodium Chloride 0.9% 100 ML IVPB SCH (21:02)
[2018-06-20] MEDS: methylPREDNISolone Sod Succ 40 MG VIAL IVP SCH ×4 (00:23→16:26)
[2018-06-20] MEDS: ALPRAZolam 0.5 MG TAB PO PRN ×4 (00:25→21:18)
[2018-06-20] MEDS: Budesonide 0.5 MG/2 ML NEB INH SCH ×2 (07:21→18:58)
[2018-06-20] MEDS: Arformoterol 15 MCG/2 ML NEB NEB SCH ×2 (07:21→18:59)
[2018-06-20] MEDS: Multivitamin W/ Minerals 1 TAB PO SCH (08:50)
[2018-06-20] MEDS: Saccharomyces boulardii 250 MG CAP PO SCH (08:50)
[2018-06-20] MEDS: Cyanocobalamin (Vitamin B-12) 1,000 MCG TAB PO SCH (08:50)
[2018-06-20] MEDS: Enoxaparin Sodium 40 MG/0.4 ML SYRINGE SC SCH (08:50)
[2018-06-20] MEDS: Prenatal Vitamin 1 TAB PO SCH (08:50)
[2018-06-20] MEDS: guaiFENesin ER 600 MG TAB PO SCH ×2 (08:50→19:44)
[2018-06-20] MEDS: Folic Acid 1 MG TAB PO SCH (08:50)
--- NOTE | 2018-06-20 11:06 | PDOC.PN ---
- Subjective Encounter Start Date: 06/20/18 Encounter Start Time: 09:45 Patient seen and examined. No new complaints. No overnight events this morning he did not tolerate without bipap, so again bipap started - Objective Resuscitation Status - Order Detail: 06/16/18 00:32 Resuscitation Status Routine Resuscitation Status: FULL: Full Resuscitation MAR Reviewed: Yes Vital Signs & Weight: Vital Signs (12 hours) Temp Pulse Resp BP Pulse Ox 06/20/18 10:33 107 H 24 H 97 06/20/18 10:05 93 L 06/20/18 08:00 97.4 F L 94 21 H 131/99 H 100 06/20/18 07:20 100 06/20/18 07:19 100 21 H 93 L 06/20/18 04:00 97.5 F L 112 H 23 H 158/95 H 90 L 06/20/18 02:14 110 H 06/20/18 00:00 97.8 F 112 H 28 H 135/95 H 97 06/19/18 23:49 97 Weight Admit Weight 113 lb 11.2 oz Weight 110 lb 9.6 oz Most Recent Monitor Data Heart Rate from ECG 80 NIBP 113/82 NIBP BP-Mean 92 Respiration from ECG 13 SpO2 100 I&O: 06/19/18 06/20/18 06/21/18 06:59 06:59 06:59 Intake Total 930 830 Output Total 350 600 Balance 580 230 Result Diagrams: 06/16/18 03:35 06/16/18 03:35 EKG Reviewed by me: Yes (sinus tachycardia) Phys Exam - Physical Examination Constitutional: NAD HEENT: PERRLA, moist MMs, sclera anicteric Neck: no JVD, supple silent chest Cardiovascular: RRR, no significant murmur, no rub Gastrointestinal: soft, non-tender, no distention, positive bowel sounds Musculoskeletal: no edema, pulses present Neurological: non-focal, normal sensation, moves all 4 limbs Lymphatic: no nodes Psychiatric: normal affect, A&O x 3 Skin: no rash, normal turgor Dx/Plan (1) Acute on chronic respiratory failure with hypercapnia Code(s): J96.22 - ACUTE AND CHRONIC RESPIRATORY FAILURE WITH HYPERCAPNIA Status: Acute Comment: secondary to COPD exacerbation (2) COPD with acute exacerbation Code(s): J44.1 - CHRONIC OBSTRUCTIVE PULMONARY DISEASE W (ACUTE) EXACERBATION Status: Acute Comment: (3) Alcohol abuse Code(s): F10.10 - ALCOHOL ABUSE, UNCOMPLICATED Status: Chronic (4) Anxiety and depression Code(s): F41.9 - ANXIETY DISORDER, UNSPECIFIED; F32.9 - MAJOR DEPRESSIVE DISORDER, SINGLE EPISODE, UNSPECIFIED Status: Chronic Comment: (5) Bipolar 1 disorder Code(s): F31.9 - BIPOLAR DISORDER, UNSPECIFIED Status: Chronic Comment: (6) Degenerative disc disease, cervical Code(s): M50.30 - OTHER CERVICAL DISC DEGENERATION, UNSP CERVICAL REGION Status: Chronic (7) Hypertension Code(s): I10 - ESSENTIAL (PRIMARY) HYPERTENSION Status: Chronic Comment: (8) Hyponatremia Code(s): E87.1 - HYPO-OSMOLALITY AND HYPONATREMIA Status: Chronic Comment: (9) Protein-calorie malnutrition, moderate Code(s): E44.0 - MODERATE PROTEIN-CALORIE MALNUTRITION Status: Chronic Comment: - Plan cont current plan of care, continue antibiotics, respiratory therapy * still needing bipap * will monitor in imcu * pulmonary following * medication reviewed as below * symptomatic treatment * currently on maximum copd treatment but he has endc stage copd taking long time to recover Review of Systems - Review of Systems Constitutional: weakness. negative: fever, chills, sweats, malaise, other Respiratory: Cough, Shortness of Breath, SOB with Excertion. negative: Dry, Hemoptysis, Pleuritic Pain, Sputum, Wheezing Cardiovascular: negative: chest pain, palpitations, orthopnea, paroxysmal nocturnal dyspnea, edema, light headedness, other Gastrointestinal: negative: Nausea, Vomiting, Abdominal Pain, Diarrhea, Constipation, Melena, Hematochezia, Other Genitourinary: negative: Dysuria, Frequency, Incontinence, Hematuria, Retention , Other Musculoskeletal: negative: Neck Pain, Shoulder Pain, Arm Pain, Back Pain, Hand Pain, Leg Pain, Foot Pain, Other - Medications/Allergies Allergies/Adverse Reactions: Allergies Allergy/AdvReac Type Severity Reaction Status Date / Time No Known Drug Allergies Allergy Verified 06/16/18 14:45 Medications: Current Medications Acetaminophen (Tylenol) 650 mg PO Q4H PRN PRN Reason: Headache/Fever/Mild Pain (1-3) Acetaminophen (Tylenol) 500 mg PO Q6H PRN PRN Reason: Mild Pain (1-3) Albuterol/Ipratropium (Duoneb) 3 ml NEB [id number] [facility] Last Admin: 06/20/18 10:33 Dose: 3 ml Alprazolam (Xanax) 0.5 mg PO QID PRN PRN Reason: Anxiety Last Admin: 06/20/18 10:50 Dose: 0.5 mg Arformoterol Tartrate (Brovana) 15 mcg NEB BID-RT [facility] Last Admin: 06/20/18 07:21 Dose: 15 mcg Artificial Tears (Tears Naturale) 2 drop EA EYE PRN PRN PRN Reason: Dry Eyes Bisacodyl (Dulcolax) 10 mg [place] DAILYPRN PRN PRN Reason: Constipation Budesonide (Pulmicort Neb Solution) 0.5 mg INH BID-RT [facility] Last Admin: 06/20/18 07:21 Dose: 0.5 mg Calcium Carbonate (Tums) 1,000 mg PO Q4H PRN PRN Reason: Heartburn or Indigestion Clonidine (Catapres) 0.1 mg PO Q4H PRN PRN Reason: SBP Greater Than 170 Last Admin: 06/17/18 10:17 Dose: 0.1 mg Cyanocobalamin (Vitamin B-12) 1,000 mcg PO DAILY [facility] Last Admin: 06/20/18 08:50 Dose: 1,000 mcg Enoxaparin Sodium (Lovenox) 40 mg SC 0900 [facility] Last Admin: 06/20/18 08:50 Dose: 40 mg Folic Acid (Folvite) 1 mg PO DAILY [facility] Last Admin: 06/20/18 08:50 Dose: 1 mg Guaifenesin (Mucinex) 600 mg PO Q12HR [facility] Last Admin: 06/20/18 08:50 Dose: 600 mg Guaifenesin (Robitussin Sf) 200 mg PO Q4H PRN PRN Reason: Cough Hydralazine HCl (Apresoline) 10 mg SLOW IVP Q4H PRN PRN Reason: SBP > 180 and HR < 70 Ceftriaxone Sodium 1 gm/ (Sodium Chloride) 100 mls @ 200 mls/hr IVPB Q24HR [facility] Last Admin: 06/19/18 21:02 Dose: 100 mls Ibuprofen (Motrin) 400 mg PO Q4H PRN PRN Reason: Fever > 101 Iron/Minerals/Multivitamins (Theragran M) 1 tab PO DAILY [facility] Last Admin: 06/20/18 08:50 Dose: 1 tab Loperamide HCl (Imodium) 2 mg PO PRN PRN PRN Reason: Diarrhea/Loose Stools Loratadine (Claritin) 10 mg PO DAILYPRN PRN PRN Reason: Sinus Symptoms Methylprednisolone Sodium Succinate (Solu-Medrol) 40 mg IVP Q6HR [facility] Last Admin: 06/20/18 10:52 Dose: 40 mg Mineral Oil/White Petrolatum (Eucerin Cream) 0 gm TOP BIDPRN PRN PRN Reason: Dry Skin Nitroglycerin (Nitrostat) 0.4 mg SL Q5MIN PRN PRN Reason: Chest Pain Last Admin: 06/16/18 22:56 Dose: 0.4 mg Ondansetron HCl (Zofran) 4 mg IVP Q6H PRN PRN Reason: Nausea/Vomiting Ondansetron HCl (Zofran Odt) 4 mg PO Q6H PRN PRN Reason: Nausea/Vomiting Pantoprazole Sodium (Protonix) 40 mg PO DAILY [facility] Last Admin: 06/20/18 08:50 Dose: 40 mg Multivit/Folic Acid/Iron ( Vitamin) 1 tab PO DAILY [facility] Last Admin: 06/20/18 08:50 Dose: 1 tab Saccharomyces Boulardii (Florastor) 250 mg PO DAILY [facility] Last Admin: 06/20/18 08:50 Dose: 250 mg Senna/Docusate Sodium (Senokot S) 2 tab PO BID PRN PRN Reason: Constipation Sodium Chloride ([place] Nasal [place] 0.65%) 0 ml EA NARE QIDPRN PRN PRN Reason: Nasal Congestion Throat Lozenges (Cepastat Lozenges) 1 melvin PO Q2H PRN PRN Reason: Sore Throat Tramadol HCl (Ultram) 50 mg PO Q8H PRN PRN Reason: Moderate Pain (4-6) Last Admin: 06/19/18 17:30 Dose: 50 mg
--- NOTE | 2018-06-20 13:30 | PRG ---
DATE OF SERVICE: 06/20/2018 SUBJECTIVE: Mr. Arellano has graduated to the use of high-flow oxygen. He is still requiring BiPAP at night. OBJECTIVE: VITAL SIGNS: On exam, temperature 98.6, pulse 105, respirations 19, O2 saturation 91%, and blood pressure 139/104. HEENT: Unremarkable. NECK: No JVD. LUNGS: Poor air movement without any active wheezing. CARDIAC: S1 and S2. Regular. ABDOMEN: Soft. EXTREMITIES: No edema. ASSESSMENT: End-stage chronic obstructive pulmonary disease. PLAN: The patient is continuing high-flow oxygen during the day and BiPAP at night. He continues nebulization treatments, antibiotics, and steroids. His prognosis remains poor. Palliative care should be considered. Job ID: [id number]
[2018-06-20] MEDS: traMADol HCl 50 MG TAB PO PRN (19:44)
[2018-06-20] MEDS: cefTRIAXone\\ROCEPHIN 1 GM in Sodium Chloride 0.9% 100 ML IVPB SCH (21:18)
[2018-06-21] MEDS: methylPREDNISolone Sod Succ 40 MG VIAL IVP SCH ×4 (00:55→18:04)
[2018-06-21 05:00] LABS: #Lymphocytes 0.9 thou/uL (1.20-3.40); #Neutrophils 11.3 thou/uL (1.40-6.50); %Basophils 0.1 % (0.0-1.0); %Eosinophils 0.1 % (0.0-10.0); %Lymphocytes 6.6 % (21.0-51.0); %Monocytes 7.9 % (0.0-10.0); %Neutrophils 85.4 % (42.0-75.0); Hemoglobin 12.9 g/dL (14.0-18.0); Mean Corpuscular HGB CONC 31.6 g/dL (32.0-36.0); Mean Corpuscular Hemoglobin 32.4 pg (27.0-31.0); Mean Platelet Volume 7.3 fL (7.4-10.4); Platelet Count 264 thou/uL (130-400); Red Blood Cell (RBC) Count 3.98 mill/uL (4.70-6.10); White Blood Cell (WBC) Count 13.2 thou/uL (4.8-10.8)
[2018-06-21 05:22] LABS: ALT (SGPT) 26 U/L (8-55); AST (SGOT) 19 U/L (5-34); Albumin 3.5 g/dL (3.5-5.0); Alkaline Phosphatase 42 U/L (40-150); Anion Gap 9 mmol/L (10-20); BUN (Urea Nitrogen) 26 mg/dL (8.4-25.7); Bilirubin, Total Less than 0.2 mg/dL (0.2-1.2); Calc. Creatinine Clearance 77 mL/min (70-130); Calcium 9.5 mg/dL (7.8-10.44); Carbon Dioxide 36 mmol/L (22-29); Chloride 92 mmol/L (98-107); Estimated GFR-MDRD Greater than 90; Globulin 1.9 g/dL (2.4-3.5); Glucose 133 mg/dL (70-105); Potassium 4.8 mmol/L (3.5-5.1); Protein, Total 5.4 g/dL (6.0-8.3); Sodium 132 mmol/L (136-145)
[2018-06-21] MEDS: Budesonide 0.5 MG/2 ML NEB INH SCH ×2 (06:24→18:49)
[2018-06-21] MEDS: Arformoterol 15 MCG/2 ML NEB NEB SCH ×2 (06:31→18:49)
[2018-06-21] MEDS: ALPRAZolam 0.5 MG TAB PO PRN ×3 (06:33→20:22)
[2018-06-21] MEDS: Multivitamin W/ Minerals 1 TAB PO SCH (09:01)
[2018-06-21] MEDS: Folic Acid 1 MG TAB PO SCH (09:01)
[2018-06-21] MEDS: Enoxaparin Sodium 40 MG/0.4 ML SYRINGE SC SCH (09:01)
[2018-06-21] MEDS: Saccharomyces boulardii 250 MG CAP PO SCH (09:01)
[2018-06-21] MEDS: Prenatal Vitamin 1 TAB PO SCH (09:02)
[2018-06-21] MEDS: guaiFENesin ER 600 MG TAB PO SCH ×2 (09:02→20:22)
[2018-06-21] MEDS: Cyanocobalamin (Vitamin B-12) 1,000 MCG TAB PO SCH (09:02)
--- NOTE | 2018-06-21 12:02 | PDOC.PN ---
- Subjective Encounter Start Date: 06/21/18 Encounter Start Time: 09:50 pt is on bipap, resting, Patient seen and examined. No overnight events - Objective Resuscitation Status - Order Detail: 06/16/18 00:32 Resuscitation Status Routine Resuscitation Status: FULL: Full Resuscitation MAR Reviewed: Yes Vital Signs & Weight: Vital Signs (12 hours) Temp Pulse Resp BP Pulse Ox 06/21/18 10:39 109 H 18 100 06/21/18 10:37 109 H 06/21/18 08:00 98.5 F 108 H 16 114/96 H 97 06/21/18 06:38 118 H 06/21/18 06:34 96 06/21/18 06:31 108 H 20 96 06/21/18 06:29 112 H 20 96 06/21/18 06:24 112 H 20 96 06/21/18 04:08 97.6 F 112 H 21 H 128/89 96 06/21/18 02:27 118 H 06/21/18 02:26 96 Weight Admit Weight 113 lb 11.2 oz Weight 110 lb 9.6 oz Most Recent Monitor Data Heart Rate from ECG 80 NIBP 113/82 NIBP BP-Mean 92 Respiration from ECG 13 SpO2 100 I&O: 06/20/18 06/21/18 06/22/18 06:59 06:59 06:59 Intake Total 830 960 Output Total 600 Balance 230 960 Result Diagrams: 06/21/18 04:42 06/21/18 04:42 EKG Reviewed by me: Yes (sinus tachycardia) Phys Exam - Physical Examination Constitutional: NAD on bipap HEENT: PERRLA, sclera anicteric Neck: no JVD, supple reduced air entry both side Cardiovascular: RRR, no significant murmur, no rub Gastrointestinal: soft, non-tender, no distention, positive bowel sounds Musculoskeletal: no edema, pulses present Neurological: non-focal, normal sensation Lymphatic: no nodes Psychiatric: normal affect Skin: no rash, normal turgor Dx/Plan (1) Acute on chronic respiratory failure with hypercapnia Code(s): J96.22 - ACUTE AND CHRONIC RESPIRATORY FAILURE WITH HYPERCAPNIA Status: Acute Comment: secondary to COPD exacerbation (2) COPD with acute exacerbation Code(s): J44.1 - CHRONIC OBSTRUCTIVE PULMONARY DISEASE W (ACUTE) EXACERBATION Status: Acute Comment: (3) Alcohol abuse Code(s): F10.10 - ALCOHOL ABUSE, UNCOMPLICATED Status: Chronic (4) Anxiety and depression Code(s): F41.9 - ANXIETY DISORDER, UNSPECIFIED; F32.9 - MAJOR DEPRESSIVE DISORDER, SINGLE EPISODE, UNSPECIFIED Status: Chronic Comment: (5) Bipolar 1 disorder Code(s): F31.9 - BIPOLAR DISORDER, UNSPECIFIED Status: Chronic Comment: (6) Degenerative disc disease, cervical Code(s): M50.30 - OTHER CERVICAL DISC DEGENERATION, UNSP CERVICAL REGION Status: Chronic (7) Hypertension Code(s): I10 - ESSENTIAL (PRIMARY) HYPERTENSION Status: Chronic Comment: (8) Hyponatremia Code(s): E87.1 - HYPO-OSMOLALITY AND HYPONATREMIA Status: Chronic Comment: (9) Protein-calorie malnutrition, moderate Code(s): E44.0 - MODERATE PROTEIN-CALORIE MALNUTRITION Status: Chronic Comment: - Plan cont current plan of care, continue antibiotics, respiratory therapy * continue current optimum therapy for copd * his intermediate manager prognosis is poor * will continue supportive care * currently on solumedrol, duoneb, mucinex. pulmicor, brovana, rocephin * pulmonary following * given end stage copd, will consult palliative care for goal of care * medication reviewed as below * symptomatic treatment Review of Systems - Review of Systems Constitutional: weakness. negative: fever, chills, sweats, malaise, other Respiratory: Cough, Shortness of Breath, SOB with Excertion, Sputum. negative: Dry, Hemoptysis, Pleuritic Pain, Wheezing Cardiovascular: negative: chest pain, palpitations, orthopnea, paroxysmal nocturnal dyspnea, edema, light headedness, other Gastrointestinal: negative: Nausea, Vomiting, Abdominal Pain, Diarrhea, Constipation, Melena, Hematochezia, Other Genitourinary: negative: Dysuria, Frequency, Incontinence, Hematuria, Retention , Other Musculoskeletal: negative: Neck Pain, Shoulder Pain, Arm Pain, Back Pain, Hand Pain, Leg Pain, Foot Pain, Other - Medications/Allergies Allergies/Adverse Reactions: Allergies Allergy/AdvReac Type Severity Reaction Status Date / Time No Known Drug Allergies Allergy Verified 06/16/18 14:45 Medications: Current Medications Acetaminophen (Tylenol) 650 mg PO Q4H PRN PRN Reason: Headache/Fever/Mild Pain (1-3) Acetaminophen (Tylenol) 500 mg PO Q6H PRN PRN Reason: Mild Pain (1-3) Albuterol/Ipratropium (Duoneb) 3 ml NEB [id number] [facility] Last Admin: 06/21/18 10:39 Dose: 3 ml Alprazolam (Xanax) 0.5 mg PO QID PRN PRN Reason: Anxiety Last Admin: 06/21/18 11:49 Dose: 0.5 mg Arformoterol Tartrate (Brovana) 15 mcg NEB BID-RT [facility] Last Admin: 06/21/18 06:31 Dose: 15 mcg Artificial Tears (Tears Naturale) 2 drop EA EYE PRN PRN PRN Reason: Dry Eyes Bisacodyl (Dulcolax) 10 mg [place] DAILYPRN PRN PRN Reason: Constipation Budesonide (Pulmicort Neb Solution) 0.5 mg INH BID-RT [facility] Last Admin: 06/21/18 06:24 Dose: 0.5 mg Calcium Carbonate (Tums) 1,000 mg PO Q4H PRN PRN Reason: Heartburn or Indigestion Clonidine (Catapres) 0.1 mg PO Q4H PRN PRN Reason: SBP Greater Than 170 Last Admin: 06/17/18 10:17 Dose: 0.1 mg Cyanocobalamin (Vitamin B-12) 1,000 mcg PO DAILY [facility] Last Admin: 06/21/18 09:02 Dose: 1,000 mcg Enoxaparin Sodium (Lovenox) 40 mg SC 0900 [facility] Last Admin: 06/21/18 09:01 Dose: 40 mg Folic Acid (Folvite) 1 mg PO DAILY [facility] Last Admin: 06/21/18 09:01 Dose: 1 mg Guaifenesin (Mucinex) 600 mg PO Q12HR [facility] Last Admin: 06/21/18 09:02 Dose: 600 mg Guaifenesin (Robitussin Sf) 200 mg PO Q4H PRN PRN Reason: Cough Hydralazine HCl (Apresoline) 10 mg SLOW IVP Q4H PRN PRN Reason: SBP > 180 and HR < 70 Ceftriaxone Sodium 1 gm/ (Sodium Chloride) 100 mls @ 200 mls/hr IVPB Q24HR [facility] Last Admin: 06/20/18 21:18 Dose: 100 mls Ibuprofen (Motrin) 400 mg PO Q4H PRN PRN Reason: Fever > 101 Iron/Minerals/Multivitamins (Theragran M) 1 tab PO DAILY [facility] Last Admin: 06/21/18 09:01 Dose: 1 tab Loperamide HCl (Imodium) 2 mg PO PRN PRN PRN Reason: Diarrhea/Loose Stools Loratadine (Claritin) 10 mg PO DAILYPRN PRN PRN Reason: Sinus Symptoms Methylprednisolone Sodium Succinate (Solu-Medrol) 40 mg IVP Q6HR [facility] Last Admin: 06/21/18 11:49 Dose: 40 mg Mineral Oil/White Petrolatum (Eucerin Cream) 0 gm TOP BIDPRN PRN PRN Reason: Dry Skin Nitroglycerin (Nitrostat) 0.4 mg SL Q5MIN PRN PRN Reason: Chest Pain Last Admin: 06/16/18 22:56 Dose: 0.4 mg Ondansetron HCl (Zofran) 4 mg IVP Q6H PRN PRN Reason: Nausea/Vomiting Ondansetron HCl (Zofran Odt) 4 mg PO Q6H PRN PRN Reason: Nausea/Vomiting Pantoprazole Sodium (Protonix) 40 mg PO DAILY [facility] Last Admin: 06/21/18 09:02 Dose: 40 mg Multivit/Folic Acid/Iron ( Vitamin) 1 tab PO DAILY [facility] Last Admin: 06/21/18 09:02 Dose: 1 tab Saccharomyces Boulardii (Florastor) 250 mg PO DAILY [facility] Last Admin: 06/21/18 09:01 Dose: 250 mg Senna/Docusate Sodium (Senokot S) 2 tab PO BID PRN PRN Reason: Constipation Sodium Chloride ([place] Nasal [place] 0.65%) 0 ml EA NARE QIDPRN PRN PRN Reason: Nasal Congestion Throat Lozenges (Cepastat Lozenges) 1 melvin PO Q2H PRN PRN Reason: Sore Throat Tramadol HCl (Ultram) 50 mg PO Q8H PRN PRN Reason: Moderate Pain (4-6) Last Admin: 06/20/18 19:44 Dose: 50 mg
--- NOTE | 2018-06-21 14:25 | PRG ---
DATE OF SERVICE: 06/20/2018 SUBJECTIVE: He is currently off the BiPAP, on high-flow oxygen, actually looks very comfortable. OBJECTIVE: VITAL SIGNS: Temperature 98.8, pulse 118, respiratory rate 26, O2 saturation 100%. HEENT: Unremarkable. NECK: No JVD. LUNGS: Has expiratory wheeze at both bases. CARDIAC: S1 and S2. Regular. ABDOMEN: Soft. EXTREMITIES: No edema. LABORATORY DATA: White blood cell count 13.2, hematocrit 40, platelet count 264. Sodium 132, BUN 26, creatinine 0.7. ASSESSMENT: 1. Hypercapnic respiratory failure, requiring mechanical ventilation with BiPAP. 2. Severe underlying chronic obstructive pulmonary disease. PLAN: Continue BiPAP, nebulization treatments, steroids, antibiotics. Job ID: [id number]
[2018-06-21 19:45] VITALS: BP 126/88; TEMP 98.3
[2018-06-21] MEDS ORDERED: Magnesium 5 GM/10 ML Abboject SYRINGE ONE (20:00)
[2018-06-21] MEDS ORDERED: Sodium Bicarb 50 MEQ/50 ML Abboject 8.4% SYRINGE ONE (20:00)
[2018-06-21] MEDS ORDERED: Calcium Chloride 1 GM/10 ML Abboject SYRINGE ONE (20:00)
[2018-06-21] MEDS ORDERED: EPINEPHrine 1 MG/10 ML Abboject SYRINGE ONE (20:00)
[2018-06-21] MEDS: cefTRIAXone\\ROCEPHIN 1 GM in Sodium Chloride 0.9% 100 ML IVPB SCH (20:24)
--- NOTE | 2018-06-22 07:44 | DIS ---
DATE OF ADMISSION: 06/15/2018 DATE OF DISCHARGE: 06/21/2018 SUMMARY PRIMARY CARE PHYSICIAN: Cielo Rojo MD. DATE OF : 06/21/2018 at 8:23:09. PRIMARY CAUSES OF : 1. Acute on chronic respiratory failure with hypoxia and hypercapnia. 2. Chronic obstructive pulmonary disease exacerbation. CONTRIBUTING DIAGNOSES: Moderate protein-calorie malnutrition, macrocytic anemia, hyponatremia, hypertension, alcohol abuse. PRIMARY PROCEDURE/OPERATION: None. HOSPITAL SUMMARY: A 58-year-old male, who had end-stage chronic obstructive pulmonary disease, who was admitted by Dr. Younger. The patient was having respiratory distress. He required BiPAP in the emergency room. He had some improvement and that was why the patient was admitted to medical floor, but overnight the patient's condition deteriorated again. The patient required IMCU transfer after code green. Pulmonary group was following while in hospital. This patient had terminal COPD. Even with maximum treatment of COPD, this patient's condition did not improve. His condition deteriorated overnight and he had code blue. He had unsuccessful recovery, and the patient was and was pronounced by on-call physician. Job ID: [id number]
--- NOTE | 2018-06-23 19:57 | EKG ---
Test Reason : Blood Pressure : / mmHG Vent. Rate : 114 BPM Atrial Rate : 114 BPM P-R Int : 138 ms QRS Dur : 076 ms QT Int : 290 ms P-R-T Axes : 087 067 085 degrees QTc Int : 399 ms Sinus tachycardia Septal infarct (cited on or before 19-MAY-2018) Abnormal ECG When compared with ECG of 15-JUN-2018 22:29, (Unconfirmed) Borderline criteria for Inferior infarct are no longer Present Questionable change in initial forces of Anteroseptal leads Confirmed by FERNY GONZALEZ (2) on 06/23/2018 7:57:24 PM Referred By: Confirmed By:FERNY GONZALEZ
--- NOTE | 2018-06-30 07:25 | PQF ---
[employer] ViewerLINDSAY TELLEZ ABDIER [id number] LICHA ALVAREZ [id number] CLINICAL DOCUMENTATION CLARIFICATION FORM: POST DISCHARGE Addendum to original discharge summary date: ____ Late entry note date: __ Please exercise your independent, professional judgment in responding to the clarification form. Clinical indicators are provided on the bottom of this form for your review Please check appropriate box(s): HEART FAILURE: A. TYPE: [x] Systolic / HFrEF [ ] Diastolic / HFpEF [ ] Combined Systolic / Diastolic B. ACUITY [ ] Acute [ x ] Acute on Chronic [ ] Chronic [ ] Other diagnosis [ ] Unable to determine In addition, please specify: Present on Admission (POA): [ x ] Yes [ ] No [ ] Unable to determine For continuity of documentation, please document condition throughout progress notes and discharge summary. Thank You. CLINICAL INDICATORS - SIGNS / SYMPTOMS / LABS CHF- H&P, CONSULT 06/17 RISKS: HYPERTENSION- H&P, D/S, ALL PROGRESS NOTES AND CONSULTS TREATMENTS: ON BIPAP FOR RESPIRATORY FAILURE- H&P, D/S, PN 06/16, 06/17 (This form is maintained as a part of the permanent medical record) [id number]. All Rights Reserved [email or web address] [phone] [email or web address]
== END 2018-06-21 23:09 | disposition expired | DRG 189 ==
LOC: ERS 20:52 → ERHOLD 22:40 → T4-A 06-16 14:38 → CCU 06-16 23:25 → IMCU/EMU 06-17 07:07
PROVIDERS: ADMIT Hospitalist; ATTEND Hospitalist
PROC: 5A09457 Assistance with Respiratory Ventilation, 24-96 Consecutive Hours, Continuous Positive Airway Pressure (ICD-10-PCS; principal; 2018-06-15)
DX: J96.22 Acute and chronic respiratory failure with hypercapnia (principal); I50.23 Acute on chronic systolic (congestive) heart failure; J44.1 Chronic obstructive pulmonary disease with (acute) exacerbation; E87.1 Hypo-osmolality and hyponatremia; E44.0 Moderate protein-calorie malnutrition; Z68.1 Body mass index [BMI] 19.9 or less, adult; M54.9 Dorsalgia, unspecified; G89.29 Other chronic pain; I11.0 Hypertensive heart disease with heart failure; F41.9 Anxiety disorder, unspecified; F31.9 Bipolar disorder, unspecified; F12.10 Cannabis abuse, uncomplicated; R73.9 Hyperglycemia, unspecified; F10.10 Alcohol abuse, uncomplicated; M50.30 Other cervical disc degeneration, unspecified cervical region; G43.909 Migraine, unspecified, not intractable, without status migrainosus; D53.9 Nutritional anemia, unspecified; Z79.82 Long term (current) use of aspirin; F17.210 Nicotine dependence, cigarettes, uncomplicated; Z79.891 Long term (current) use of opiate analgesic; Z79.51 Long term (current) use of inhaled steroids; Z79.52 Long term (current) use of systemic steroids
CPT/HCPCS: 36415; 71045; 80048; 80053; 81003; 82550; 82805; 83605; 84484; 85025; 87040; 87804; 93005; 93010; 94660; 96361; 96365; 96367; 96375; J0171; J0456; J0696; J1650; J2270; J2920; J2930; J3475; J7050; J7070; J7620; J7626